=== PATIENT | male | born 1965 | race African-American/Black ===

== ENCOUNTER 2018-06-21 04:16 | Inpatient (IN) | payer MEDICAID ==
[~2018-06-21] VITALS: Ht 182.9 cm; Wt 93.5 kg
[2018-06-21] MEDS ORDERED: IBUPROFEN 600MG TABLET PO ONE (06:00)
[2018-06-21 06:24] LABS: BASOPHILS % 1.3 % (0.0-2.0); EOSINOPHILS % 2.4 % (0.0-5.0); HEMATOCRIT. 40.6 % (42.0-52.0); HEMOGLOBIN. 13.3 g/dL (14.0-18.0); LYMPHOCYTES % 12.1 % (20.0-50.0); MEAN CORPUSCULAR HEMOGLOBIN 30.6 pg (28.0-32.0); MEAN CORPUSCULAR VOLUME 93.4 fL (80.0-94.0); MEAN PLATELET VOLUME 7.8 fl (7.4-10.4); MONOCYTES % 6.3 % (2.0-8.0); NEUTROPHILS % 77.9 % (40.0-76.0); PLATELET 339 x1000/uL (130-400); RED BLOOD CELL COUNT 4.34 mill/uL (4.7-6.1); RED CELL DISTRIBUTION WIDTH 16.1 % (11.6-14.6)
[2018-06-21] MEDS ORDERED: SODIUM CHLORIDE 0.9% 1,000 ML IV ONE (06:24)
[2018-06-21 06:28] LABS: PROTHROMBIN TIME 10.2 sec (9.1-11.1)
[2018-06-21] MEDS ORDERED: PIPERACILLIN/TAZ 3.375G PREMIX 50 ML IV ONE (06:30)
[2018-06-21] MEDS ORDERED: VANCOMYCIN 1 G PREMIX 200 ML IV ONE (06:30)
[2018-06-21 06:41] LABS: CHLORIDE 109 mEq/L (98-107)
[2018-06-21 07:16] LABS: CLARITY URINE CLEAR (CLEAR); COLOR URINE YELLOW (YELLOW); KETONES URINE NEGATIVE (NEGATIVE); LEUKOCYTE ESTERASE URINE NEGATIVE (NEGATIVE); NITRITE URINE NEGATIVE (NEGATIVE); OCCULT BLOOD URINE NEGATIVE (NEGATIVE); PROTEIN URINE TRACE (NEGATIVE); UROBILINOGEN URINE 0.2 E.U./dL (0.2-1.0)
[2018-06-21 08:02] LABS: *COCAINE SCREEN URINE PRESUMTIVE POSITIVE (NEGATIVE)
[2018-06-21 08:03] LABS: *AMPHETAMINES SCREEN URINE NEGATIVE (NEGATIVE); *BARBITURATES SCREEN URINE NEGATIVE (NEGATIVE); *BENZODIAZEPINES SCREEN URINE NEGATIVE (NEGATIVE); OPIATES URINE SCREEN NEGATIVE (NEGATIVE); PHENCYCLIDINE URINE SCREEN NEGATIVE (NEGATIVE)
[2018-06-21 08:04] LABS: CANNABINOID URINE SCREEN NEGATIVE (NEGATIVE); METHADONE URINE SCREEN NEGATIVE (NEGATIVE)
[2018-06-21] MEDS ORDERED: SODIUM CHLORIDE 0.9% 1000ML BAG (SEPSIS BOLUS) IV ONE (09:00)
[2018-06-21] MEDS ORDERED: ACETAMINOPHEN 325MG TABLET PO PRN (09:15)
[2018-06-21] MEDS ORDERED: CLONIDINE 0.1MG TABLET PO PRN (09:15)
[2018-06-21] MEDS ORDERED: ONDANSETRON HCL 4MG/2ML INJ IV PRN (09:15)
[2018-06-21] MEDS: FUROSEMIDE 40MG/4ML VIAL IVP SCH (12:54)
[2018-06-21 13:53] VITALS: BP 158/105
[2018-06-21 15:21] VITALS: BP 158/105
[2018-06-21 16:00] VITALS: BP 159/98
[2018-06-21] MEDS: ENOXAPARIN 40MG/0.4ML SYR SUBCUT SCH (16:38)
[2018-06-21 20:00] VITALS: BP 154/88
[2018-06-21] MEDS ORDERED: VANCOMYCIN 750 MG PREMIX 150 ML IV NR (20:00)
[2018-06-21] MEDS: METOPROLOL TARTRATE 50MG TABLET PO SCH (21:00)
[2018-06-21] MEDS ORDERED: VANCOMYCIN 1 G PREMIX 200 ML IV SCH (21:00)
[2018-06-21] MEDS: AMLODIPINE 5MG TABLET PO SCH (21:00)
[2018-06-21] MEDS: CARVEDILOL 6.25 MG TABLET PO SCH (21:01)
[2018-06-22 04:00] VITALS: BP 134/88
[2018-06-22 07:07] LABS: BASOPHILS % 1.2 % (0.0-2.0); EOSINOPHILS % 2.8 % (0.0-5.0); HEMATOCRIT. 33.5 % (42.0-52.0); HEMOGLOBIN. 11.3 g/dL (14.0-18.0); LYMPHOCYTES % 14.3 % (20.0-50.0); MEAN CORPUSCULAR HEMOGLOBIN 30.7 pg (28.0-32.0); MEAN CORPUSCULAR VOLUME 90.7 fL (80.0-94.0); MEAN PLATELET VOLUME 7.8 fl (7.4-10.4); MONOCYTES % 7.3 % (2.0-8.0); NEUTROPHILS % 74.4 % (40.0-76.0); PLATELET 306 x1000/uL (130-400); RED BLOOD CELL COUNT 3.69 mill/uL (4.7-6.1); RED CELL DISTRIBUTION WIDTH 15.6 % (11.6-14.6)
[2018-06-22 08:00] VITALS: BP 134/90
[2018-06-22] MEDS: FUROSEMIDE 40MG/4ML VIAL IVP SCH (09:56)
[2018-06-22] MEDS: AMLODIPINE 5MG TABLET PO SCH ×2 (09:56→21:37)
[2018-06-22] MEDS: CARVEDILOL 6.25 MG TABLET PO SCH ×2 (09:56→21:37)
[2018-06-22] MEDS: METOPROLOL TARTRATE 50MG TABLET PO SCH ×2 (09:57→21:36)
[2018-06-22 12:00] VITALS: BP 116/80
[2018-06-22 16:00] VITALS: BP 133/94
[2018-06-22] MEDS: ENOXAPARIN 40MG/0.4ML SYR SUBCUT SCH (16:00)
[2018-06-22] MEDS: SILVER SULFADIAZINE 1% CREAM 50GM TOP SCH ×2 (19:30→22:26)
[2018-06-22 20:16] VITALS: BP 113/66
[2018-06-22] MEDS: ZOLPIDEM TARTRATE 5MG TABLET PO PRN (21:36)
[2018-06-22] MEDS: DIPHENHYDRAMINE 50MG/ML VIAL IV PRN (21:38)
[2018-06-23] MEDS ORDERED: LORAZEPAM 2MG/ML CPJ IV PRN (01:30)
[2018-06-23 04:00] VITALS: BP 112/69
[2018-06-23 08:00] VITALS: BP 115/66
[2018-06-23] MEDS: METOPROLOL TARTRATE 50MG TABLET PO SCH (09:35)
[2018-06-23] MEDS: CARVEDILOL 6.25 MG TABLET PO SCH ×2 (09:35→22:43)
[2018-06-23] MEDS: AMLODIPINE 5MG TABLET PO SCH ×2 (09:36→22:43)
[2018-06-23] MEDS: SILVER SULFADIAZINE 1% CREAM 50GM TOP SCH (09:38)
[2018-06-23 12:00] VITALS: BP_SYST 102; BP_SYST 112; BP_DIAS 52; BP_DIAS 61
[2018-06-23 13:34] LABS: BASOPHILS % 1.4 % (0.0-2.0); EOSINOPHILS % 3.5 % (0.0-5.0); HEMATOCRIT. 36.4 % (42.0-52.0); LYMPHOCYTES % 17.2 % (20.0-50.0); MEAN CORPUSCULAR HEMOGLOBIN 30.1 pg (28.0-32.0); MEAN PLATELET VOLUME 7.5 fl (7.4-10.4); MONOCYTES % 11.3 % (2.0-8.0); NEUTROPHILS % 66.6 % (40.0-76.0); PLATELET 319 x1000/uL (130-400); RED CELL DISTRIBUTION WIDTH 15.6 % (11.6-14.6)
[2018-06-23 16:00] VITALS: BP 111/79
[2018-06-23] MEDS: ENOXAPARIN 40MG/0.4ML SYR SUBCUT SCH (17:18)
[2018-06-24 00:37] VITALS: BP 116/82
[2018-06-24] MEDS: DIPHENHYDRAMINE 50MG/ML VIAL IV PRN (03:33)
[2018-06-24 04:00] VITALS: BP 115/85
[2018-06-24 08:00] VITALS: BP 118/54
[2018-06-24] MEDS: SILVER SULFADIAZINE 1% CREAM 50GM TOP SCH (09:17)
[2018-06-24] MEDS: CARVEDILOL 6.25 MG TABLET PO SCH ×2 (09:18→20:55)
[2018-06-24] MEDS: AMLODIPINE 5MG TABLET PO SCH ×2 (09:18→20:56)
[2018-06-24] MEDS ORDERED: VANCOMYCIN 1500MG in DEXTROSE 5% WATER 250ML IV NR (12:00)
[2018-06-24] MEDS: ENOXAPARIN 40MG/0.4ML SYR SUBCUT SCH (16:38)
[2018-06-24 20:00] VITALS: BP 120/79
[2018-06-24] MEDS: ZOLPIDEM TARTRATE 5MG TABLET PO PRN (20:56)
[2018-06-24] MEDS: HYDROCODONE/ACETAMINOPHEN 10/325MG TABLET PO PRN (20:57)
[2018-06-25] VITALS: BP 130/89
[2018-06-25 08:00] VITALS: BP 119/87
[2018-06-25] MEDS: CARVEDILOL 6.25 MG TABLET PO SCH (08:04)
[2018-06-25] MEDS: HYDROCODONE/ACETAMINOPHEN 10/325MG TABLET PO PRN ×2 (08:05→14:11)
[2018-06-25] MEDS: AMLODIPINE 5MG TABLET PO SCH (08:05)
[2018-06-25] MEDS: SILVER SULFADIAZINE 1% CREAM 50GM TOP SCH (08:05)
[2018-06-25 12:00] VITALS: BP 119/87
[2018-06-25] MEDS ORDERED: VANCOMYCIN 1500MG in DEXTROSE 5% WATER 250ML IV SCH (12:00)
[2018-06-25] MEDS: ENOXAPARIN 40MG/0.4ML SYR SUBCUT SCH (15:50)
[2018-06-25 16:21] VITALS: BP 119/78
== END 2018-06-25 16:45 | disposition home or self-care (01) | DRG 194 ==
LOC: ER 04:16 → 7WST 07:08 → EDBEDREQ 07:09 → ENRESERV 11:24
PROVIDERS: ADMIT Internal Medicine; ATTEND Internal Medicine
DX: I13.0 Hypertensive heart and chronic kidney disease with heart failure and stage 1 through stage 4 chronic kidney disease, or unspecified chronic kidney disease (principal); E87.8 Other disorders of electrolyte and fluid balance, not elsewhere classified; E44.0 Moderate protein-calorie malnutrition; I42.9 Cardiomyopathy, unspecified; L97.919 Non-pressure chronic ulcer of unspecified part of right lower leg with unspecified severity; L03.115 Cellulitis of right lower limb; N18.4 Chronic kidney disease, stage 4 (severe); F14.10 Cocaine abuse, uncomplicated; J45.909 Unspecified asthma, uncomplicated; D64.9 Anemia, unspecified; L97.929 Non-pressure chronic ulcer of unspecified part of left lower leg with unspecified severity; I50.43 Acute on chronic combined systolic (congestive) and diastolic (congestive) heart failure; I87.2 Venous insufficiency (chronic) (peripheral); Z59.0 Homelessness; Z82.49 Family history of ischemic heart disease and other diseases of the circulatory system; Z88.0 Allergy status to penicillin; Z68.27 Body mass index [BMI] 27.0-27.9, adult
CPT/HCPCS: 36415; 71045; 73610; 80048; 80202; 80305; 83605; 83880; 84145; 87070; 87077; 93005; 93306; 93970; 96365; 99291; J1200; J1650; J1940; J2060; J2543; J3370; J7030; J7050; J7060

== ENCOUNTER 2018-08-24 05:09 | Emergency (ER) | payer MEDICAID ==
[~2018-08-24] VITALS: Ht 182.9 cm; Wt 90.0 kg
[2018-08-24] MEDS ORDERED: ASPIRIN 81MG TABLET PO ONE (07:45)
[2018-08-24] MEDS ORDERED: SODIUM CHLORIDE 0.9% 1,000 ML IV ONE ×2 (07:45→09:33)
[2018-08-24 08:19] LABS: BASOPHILS % 1.2 % (0.0-2.0); EOSINOPHILS % 1.2 % (0.0-5.0); HEMATOCRIT. 33.4 % (42.0-52.0); HEMOGLOBIN. 10.8 g/dL (14.0-18.0); LYMPHOCYTES % 9.9 % (20.0-50.0); MEAN CORPUSCULAR HEMOGLOBIN 29.2 pg (28.0-32.0); MEAN CORPUSCULAR VOLUME 90.2 fL (80.0-94.0); MONOCYTES % 5.5 % (2.0-8.0); NEUTROPHILS % 82.2 % (40.0-76.0); PLATELET 311 x1000/uL (130-400); RED CELL DISTRIBUTION WIDTH 14.4 % (11.6-14.6)
[2018-08-24 08:25] LABS: CHLORIDE 110 mEq/L (98-107)
[2018-08-24 08:29] LABS: ETHANOL BLOOD < 10 mg/dL
[2018-08-24 08:32] LABS: D-DIMER 0.63 mg/L FEU (<0.50); PARTIAL THROMBOPLASTIN TIME 27.3 sec (23.4-31.0); PROTHROMBIN TIME 10.5 sec (9.1-11.1)
[2018-08-24 09:13] LABS: *AMPHETAMINES SCREEN URINE NEGATIVE (NEGATIVE)
[2018-08-24 09:14] LABS: *BENZODIAZEPINES SCREEN URINE NEGATIVE (NEGATIVE); *COCAINE SCREEN URINE PRESUMTIVE POSITIVE (NEGATIVE); CANNABINOID URINE SCREEN PRESUMTIVE POSITIVE (NEGATIVE); METHADONE URINE SCREEN NEGATIVE (NEGATIVE); OPIATES URINE SCREEN NEGATIVE (NEGATIVE); PHENCYCLIDINE URINE SCREEN NEGATIVE (NEGATIVE)
[2018-08-24 09:23] LABS: *BARBITURATES SCREEN URINE NEGATIVE (NEGATIVE)
[2018-08-24] MEDS ORDERED: LORAZEPAM 1MG TABLET PO ONE (09:45)
[2018-08-24] MEDS ORDERED: IOHEXOL-350 100 ML BOTTLE ONE (11:46)
[2018-08-24 14:20] VITALS: BP 125/72
== END 2018-08-24 14:37 | disposition home or self-care (01) ==
LOC: ER 05:09
DX: M79.18 Myalgia, other site (principal); R07.89 Other chest pain; F12.10 Cannabis abuse, uncomplicated; F14.10 Cocaine abuse, uncomplicated; R00.2 Palpitations; G82.22 Paraplegia, incomplete; Z87.828 Personal history of other (healed) physical injury and trauma
CPT/HCPCS: 36415; 71045; 71275; 80053; 80305; 83880; 84484; 85025; 85379; 85610; 85730; 93005; 93970; 99284; J7030; Q9967

== ENCOUNTER 2018-10-05 06:53 | Inpatient (IN) | payer MEDICAID ==
[~2018-10-05] VITALS: Ht 172.7 cm; Wt 96.6 kg
[2018-10-05] MEDS ORDERED: SODIUM CHLORIDE 0.9% 1,000 ML IV ONE ×2 (07:09→07:15)
[2018-10-05 07:36] LABS: CHLORIDE 112 mEq/L (98-107)
[2018-10-05 07:37] LABS: PROTHROMBIN TIME 10.8 sec (9.6-11.0)
[2018-10-05 07:40] LABS: ETHANOL BLOOD < 10 mg/dL
[2018-10-05 07:46] LABS: BASOPHILS % 1.2 % (0.0-2.0); EOSINOPHILS % 5.8 % (0.0-5.0); HEMATOCRIT. 36.8 % (42.0-52.0); HEMOGLOBIN. 11.9 g/dL (14.0-18.0); MEAN CORPUSCULAR HEMOGLOBIN 29.1 pg (28.0-32.0); MEAN CORPUSCULAR VOLUME 89.8 fL (80.0-94.0); MONOCYTES % 7.2 % (2.0-8.0); NEUTROPHILS % 74.8 % (40.0-76.0); PLATELET 257 x1000/uL (130-400); RED BLOOD CELL COUNT 4.09 mill/uL (4.7-6.1); RED CELL DISTRIBUTION WIDTH 17.1 % (11.6-14.6)
[2018-10-05] MEDS ORDERED: CLINDAMYCIN 600 MG in DEXTROSE 5% WATER 50 ML IV ONE (08:00)
[2018-10-05] MEDS: VANCOMYCIN 1 G PREMIX 200 ML IV SCH ×3 (08:00→13:24)
[2018-10-05 08:49] LABS: CLARITY URINE CLEAR (CLEAR); COLOR URINE YELLOW (YELLOW); KETONES URINE NEGATIVE (NEGATIVE); LEUKOCYTE ESTERASE URINE NEGATIVE (NEGATIVE); NITRITE URINE NEGATIVE (NEGATIVE); OCCULT BLOOD URINE NEGATIVE (NEGATIVE); PH URINE 5.5 (4.5-8.0); PROTEIN URINE 1+ (NEGATIVE); SPECIFIC GRAVITY URINE 1.012 (1.005-1.030); UROBILINOGEN URINE 0.2 E.U./dL (0.2-1.0)
[2018-10-05 09:19] LABS: *BARBITURATES SCREEN URINE NEGATIVE (NEGATIVE); *BENZODIAZEPINES SCREEN URINE NEGATIVE (NEGATIVE); *COCAINE SCREEN URINE PRESUMTIVE POSITIVE (NEGATIVE); METHADONE URINE SCREEN NEGATIVE (NEGATIVE)
[2018-10-05 09:20] LABS: CANNABINOID URINE SCREEN PRESUMTIVE POSITIVE (NEGATIVE); OPIATES URINE SCREEN NEGATIVE (NEGATIVE); PHENCYCLIDINE URINE SCREEN NEGATIVE (NEGATIVE)
[2018-10-05 09:23] LABS: *AMPHETAMINES SCREEN URINE NEGATIVE (NEGATIVE)
[2018-10-05] MEDS ORDERED: ASPIRIN 81MG TABLET PO ONE (09:45)
[2018-10-05] MEDS ORDERED: ACETAMINOPHEN 325MG TABLET PO PRN (10:15)
[2018-10-05] MEDS ORDERED: DIPHENHYDRAMINE 50MG/ML VIAL IV PRN (10:15)
[2018-10-05] MEDS ORDERED: MAGNESIUM/ALUMINUM HYDROXIDE/SIMETHICONE 30ML UDC PO PRN (10:15)
[2018-10-05] MEDS ORDERED: GUAIFENESIN 200MG/10ML SUGAR FREE UDC PO PRN (10:15)
[2018-10-05] MEDS ORDERED: IPRATROPIUM/ALBUTEROL 0.5-3(2.5)MG/3ML NEB INH PRN (10:15)
[2018-10-05] MEDS ORDERED: ONDANSETRON HCL 4MG/2ML INJ IV PRN (10:15)
[2018-10-05] MEDS ORDERED: CLONIDINE 0.1MG TABLET PO PRN (10:15)
[2018-10-05] MEDS ORDERED: ASPIRIN 81MG TABLET PO SCH (11:00)
[2018-10-05 11:22] LABS: PHOSPHORUS 3.1 mg/dL (2.5-4.9)
[2018-10-05 11:48] LABS: HEPATITIS B SURFACE ANTIGEN NEGATIVE
[2018-10-05 12:17] LABS: HEPATITIS A AB IGM NEGATIVE (NEGATIVE)
[2018-10-05 16:06] LABS: BG BASE EXCESS -0.9 mmol/L (-2.0-2.0); BG CARBOXYHEMOGLOBIN 1.2 % (0.5-1.5); BG DEOXYHEMOGLOBIN 5.4 % (0.0-5.0); BG HCO3 ACT 23.7 mmol/L (22.0-26.0); BG METHEMOGLOBIN 0.2 % (0.0-1.5); BG OXYGEN SATURATION 94.5 % (92.0-98.5); BG OXYHEMOGLOBIN 93.2 % (94.0-97.0); BG PCO2 38.8 mmHg (35.0-45.0); BG PH 7.403 (7.350-7.450); BG PO2 74.8 mmHg (75.0-100.0); BG SAMPLE SITE RIGHT RADIAL; BG TOTAL HEMOGLOBIN 12.2 g/dL (12.0-18.0); BG VENT MODE ROOM AIR
[2018-10-05 16:26] LABS: CREATINE KINASE MB FRACTION 3.5 ng/mL (0.5-3.6)
[2018-10-05 16:52] LABS: FOLIC ACID (FOLATE) SERUM 19.8 ng/mL (>5.38)
[2018-10-05] MEDS: CLONIDINE 0.1MG TABLET PO SCH ×2 (18:00→18:14)
[2018-10-05 18:12] VITALS: BP 140/93
[2018-10-05 18:20] VITALS: BP 159/116
[2018-10-05 20:00] VITALS: BP 158/110
[2018-10-05] MEDS: AMLODIPINE 5MG TABLET PO SCH (20:14)
[2018-10-05 22:00] VITALS: BP 128/86
[2018-10-05 23:56] LABS: CREATINE KINASE MB FRACTION 2.1 ng/mL (0.5-3.6)
[2018-10-06] VITALS (12 sets, daily range): BP systolic 107–160; BP diastolic 68–111
[2018-10-06] MEDS: CLONIDINE 0.1MG TABLET PO SCH ×4 (01:22→17:15)
[2018-10-06 06:51] LABS: BASOPHILS % 1.3 % (0.0-2.0); EOSINOPHILS % 9.1 % (0.0-5.0); HEMATOCRIT. 33.5 % (42.0-52.0); HEMOGLOBIN. 11.1 g/dL (14.0-18.0); LYMPHOCYTES % 10.9 % (20.0-50.0); MEAN CORPUSCULAR HEMOGLOBIN 29.3 pg (28.0-32.0); MEAN CORPUSCULAR VOLUME 88.1 fL (80.0-94.0); MEAN PLATELET VOLUME 7.9 fl (7.4-10.4); MONOCYTES % 7.6 % (2.0-8.0); NEUTROPHILS % 71.1 % (40.0-76.0); PLATELET 240 x1000/uL (130-400); RED CELL DISTRIBUTION WIDTH 16.3 % (11.6-14.6)
[2018-10-06 07:12] LABS: CHLORIDE 110 mEq/L (98-107)
[2018-10-06 07:20] LABS: HDL CHOLESTEROL 45 mg/dL (40-59)
[2018-10-06 07:22] LABS: LDL CHOLESTEROL 78 mg/dL (5-100)
[2018-10-06] MEDS: AMLODIPINE 5MG TABLET PO SCH ×2 (09:30→21:36)
[2018-10-06] MEDS: DOCUSATE SODIUM 100MG CAPSULE PO PRN (09:30)
[2018-10-06] MEDS: ASPIRIN 81MG EC TABLET PO SCH (09:31)
[2018-10-06 12:10] LABS: PHOSPHORUS 2.5 mg/dL (2.5-4.9)
[2018-10-06 12:13] LABS: T4 FREE 0.99 ng/dL (0.76-1.46)
[2018-10-06] MEDS: THIAMINE HCL 100MG TABLET PO SCH (12:23)
[2018-10-06] MEDS: FOLIC ACID 1MG TABLET PO SCH (12:23)
[2018-10-06] MEDS: MULTIVITAMINS,THER W-MINERALS TABLET PO SCH (12:23)
[2018-10-06] MEDS: HYDROCODONE/ACETAMINOPHEN 5/325MG TABLET PO PRN ×2 (17:15→21:46)
[2018-10-07] VITALS (10 sets, daily range): BP systolic 104–140; BP diastolic 67–94
[2018-10-07] MEDS: CLONIDINE 0.1MG TABLET PO SCH ×3 (01:07→18:06)
[2018-10-07] MEDS: HYDROCODONE/ACETAMINOPHEN 5/325MG TABLET PO PRN ×3 (01:08→22:15)
[2018-10-07 07:06] LABS: BASOPHILS % 1.3 % (0.0-2.0); EOSINOPHILS % 11.5 % (0.0-5.0); HEMATOCRIT. 35.2 % (42.0-52.0); HEMOGLOBIN. 11.5 g/dL (14.0-18.0); LYMPHOCYTES % 19.5 % (20.0-50.0); MEAN CORPUSCULAR HEMOGLOBIN 28.9 pg (28.0-32.0); MEAN CORPUSCULAR VOLUME 88.1 fL (80.0-94.0); MEAN PLATELET VOLUME 7.9 fl (7.4-10.4); MONOCYTES % 9.2 % (2.0-8.0); NEUTROPHILS % 58.5 % (40.0-76.0); PLATELET 229 x1000/uL (130-400); RED CELL DISTRIBUTION WIDTH 16.4 % (11.6-14.6)
[2018-10-07 07:12] LABS: PHOSPHORUS 3.6 mg/dL (2.5-4.9)
[2018-10-07] MEDS: MULTIVITAMINS,THER W-MINERALS TABLET PO SCH (08:07)
[2018-10-07] MEDS: FOLIC ACID 1MG TABLET PO SCH (08:07)
[2018-10-07] MEDS: AMLODIPINE 5MG TABLET PO SCH ×2 (08:07→21:24)
[2018-10-07] MEDS: DOCUSATE SODIUM 100MG CAPSULE PO PRN (08:08)
[2018-10-07] MEDS: FERROUS SULFATE 325MG TABLET PO SCH ×4 (08:08→18:06)
[2018-10-07] MEDS: THIAMINE HCL 100MG TABLET PO SCH (08:08)
[2018-10-07] MEDS: ASPIRIN 81MG EC TABLET PO SCH (08:08)
[2018-10-07] MEDS ORDERED: PERMETHRIN 5% CREAM 60GM TOP SCH (13:30)
[2018-10-07] MEDS ORDERED: LACTULOSE 20G/30ML UDC PO PRN (21:00)
[2018-10-08] VITALS: BP 117/79
[2018-10-08] MEDS: CLONIDINE 0.1MG TABLET PO SCH ×3 (01:29→18:12)
[2018-10-08 04:00] VITALS: BP 118/82
[2018-10-08 06:17] LABS: BASOPHILS % 1.3 % (0.0-2.0); EOSINOPHILS % 10.2 % (0.0-5.0); HEMATOCRIT. 33.8 % (42.0-52.0); HEMOGLOBIN. 11.2 g/dL (14.0-18.0); LYMPHOCYTES % 21.1 % (20.0-50.0); MEAN CORPUSCULAR HEMOGLOBIN 29.4 pg (28.0-32.0); MEAN CORPUSCULAR VOLUME 88.7 fL (80.0-94.0); MEAN PLATELET VOLUME 7.6 fl (7.4-10.4); MONOCYTES % 8.9 % (2.0-8.0); NEUTROPHILS % 58.5 % (40.0-76.0); PLATELET 217 x1000/uL (130-400); RED CELL DISTRIBUTION WIDTH 16.6 % (11.6-14.6)
[2018-10-08 08:00] VITALS: BP 122/93
[2018-10-08] MEDS: MULTIVITAMINS,THER W-MINERALS TABLET PO SCH (09:40)
[2018-10-08] MEDS: ASPIRIN 81MG EC TABLET PO SCH (09:40)
[2018-10-08] MEDS: FERROUS SULFATE 325MG TABLET PO SCH ×3 (09:40→18:12)
[2018-10-08] MEDS: FOLIC ACID 1MG TABLET PO SCH (09:41)
[2018-10-08] MEDS: THIAMINE HCL 100MG TABLET PO SCH (09:41)
[2018-10-08] MEDS: AMLODIPINE 5MG TABLET PO SCH ×2 (09:48→20:31)
[2018-10-08] MEDS: HYDROCODONE/ACETAMINOPHEN 5/325MG TABLET PO PRN ×2 (09:54→18:18)
[2018-10-08 12:00] VITALS: BP 102/56
[2018-10-08 13:06] LABS: HIV SCREEN 4G Non Reactive (Non Reactive)
[2018-10-08 16:00] VITALS: BP 126/93
[2018-10-08 20:00] VITALS: BP 119/85
[2018-10-09] VITALS: BP 130/80
[2018-10-09] MEDS: CLONIDINE 0.1MG TABLET PO SCH ×3 (01:01→19:45)
[2018-10-09] MEDS: HYDROCODONE/ACETAMINOPHEN 5/325MG TABLET PO PRN ×2 (01:07→04:58)
[2018-10-09 04:00] VITALS: BP 119/83
[2018-10-09 06:56] LABS: BASOPHILS % 1.7 % (0.0-2.0); HEMATOCRIT. 33.4 % (42.0-52.0); HEMOGLOBIN. 11.1 g/dL (14.0-18.0); MEAN CORPUSCULAR HEMOGLOBIN 29.2 pg (28.0-32.0); MEAN CORPUSCULAR VOLUME 87.9 fL (80.0-94.0); MEAN PLATELET VOLUME 7.8 fl (7.4-10.4); MONOCYTES % 8.6 % (2.0-8.0); NEUTROPHILS % 54.7 % (40.0-76.0); PLATELET 219 x1000/uL (130-400); RED BLOOD CELL COUNT 3.81 mill/uL (4.7-6.1); RED CELL DISTRIBUTION WIDTH 16.4 % (11.6-14.6)
[2018-10-09 07:32] LABS: PHOSPHORUS 3.6 mg/dL (2.5-4.9)
[2018-10-09 08:00] VITALS: BP 124/90
[2018-10-09] MEDS: ASPIRIN 81MG EC TABLET PO SCH (08:00)
[2018-10-09] MEDS: AMLODIPINE 5MG TABLET PO SCH ×3 (09:41→21:46)
[2018-10-09] MEDS: FOLIC ACID 1MG TABLET PO SCH (09:42)
[2018-10-09] MEDS: FERROUS SULFATE 325MG TABLET PO SCH ×3 (09:42→17:58)
[2018-10-09] MEDS: MULTIVITAMINS,THER W-MINERALS TABLET PO SCH (09:42)
[2018-10-09] MEDS: LACTULOSE 20G/30ML UDC PO SCH ×2 (09:43→17:58)
[2018-10-09] MEDS: THIAMINE HCL 100MG TABLET PO SCH (09:46)
[2018-10-09 12:15] VITALS: BP 120/78
[2018-10-09 15:55] VITALS: BP 116/77
[2018-10-09 20:00] VITALS: BP 134/83
[2018-10-10 00:09] VITALS: BP 134/93
[2018-10-10] MEDS: CLONIDINE 0.1MG TABLET PO SCH ×3 (01:38→18:06)
[2018-10-10] MEDS: HYDROCODONE/ACETAMINOPHEN 5/325MG TABLET PO PRN (02:16)
[2018-10-10 04:04] VITALS: BP 117/85
[2018-10-10 06:28] LABS: BASOPHILS % 1.2 % (0.0-2.0); EOSINOPHILS % 7.7 % (0.0-5.0); HEMATOCRIT. 32.7 % (42.0-52.0); HEMOGLOBIN. 10.8 g/dL (14.0-18.0); LYMPHOCYTES % 22.5 % (20.0-50.0); MEAN CORPUSCULAR VOLUME 87.9 fL (80.0-94.0); MONOCYTES % 9.3 % (2.0-8.0); NEUTROPHILS % 59.3 % (40.0-76.0); PLATELET 217 x1000/uL (130-400); RED BLOOD CELL COUNT 3.73 mill/uL (4.7-6.1); RED CELL DISTRIBUTION WIDTH 16.5 % (11.6-14.6)
[2018-10-10 06:47] LABS: PHOSPHORUS 3.3 mg/dL (2.5-4.9)
[2018-10-10] MEDS: FOLIC ACID 1MG TABLET PO SCH (08:44)
[2018-10-10] MEDS: MULTIVITAMINS,THER W-MINERALS TABLET PO SCH (08:44)
[2018-10-10] MEDS: ASPIRIN 81MG EC TABLET PO SCH (08:44)
[2018-10-10] MEDS: AMLODIPINE 5MG TABLET PO SCH ×2 (08:46→20:38)
[2018-10-10] MEDS: FERROUS SULFATE 325MG TABLET PO SCH ×3 (08:46→18:06)
[2018-10-10] MEDS: THIAMINE HCL 100MG TABLET PO SCH (08:46)
[2018-10-10] MEDS: LACTULOSE 20G/30ML UDC PO SCH ×2 (08:46→18:06)
[2018-10-10 09:10] VITALS: BP 134/97
[2018-10-10 12:00] VITALS: BP 113/67
[2018-10-10 16:00] VITALS: BP 136/90
[2018-10-10 20:13] VITALS: BP 113/77
[2018-10-11 00:06] VITALS: BP 131/92
[2018-10-11] MEDS: CLONIDINE 0.1MG TABLET PO SCH ×2 (02:00→09:39)
[2018-10-11 03:59] VITALS: BP 132/92
[2018-10-11 07:09] LABS: BASOPHILS % 1.8 % (0.0-2.0); EOSINOPHILS % 7.6 % (0.0-5.0); HEMATOCRIT. 32.8 % (42.0-52.0); HEMOGLOBIN. 10.8 g/dL (14.0-18.0); LYMPHOCYTES % 22.7 % (20.0-50.0); MEAN CORPUSCULAR HEMOGLOBIN 28.9 pg (28.0-32.0); MEAN CORPUSCULAR VOLUME 87.9 fL (80.0-94.0); MEAN PLATELET VOLUME 7.8 fl (7.4-10.4); MONOCYTES % 8.7 % (2.0-8.0); NEUTROPHILS % 59.2 % (40.0-76.0); PLATELET 211 x1000/uL (130-400); RED BLOOD CELL COUNT 3.74 mill/uL (4.7-6.1); RED CELL DISTRIBUTION WIDTH 16.3 % (11.6-14.6)
[2018-10-11] MEDS: MULTIVITAMINS,THER W-MINERALS TABLET PO SCH (08:52)
[2018-10-11] MEDS: FOLIC ACID 1MG TABLET PO SCH (08:52)
[2018-10-11] MEDS: THIAMINE HCL 100MG TABLET PO SCH (08:52)
[2018-10-11] MEDS: ASPIRIN 81MG EC TABLET PO SCH (08:52)
[2018-10-11] MEDS: FERROUS SULFATE 325MG TABLET PO SCH (08:52)
[2018-10-11] MEDS: AMLODIPINE 5MG TABLET PO SCH (08:52)
[2018-10-11] MEDS: LACTULOSE 20G/30ML UDC PO SCH (08:53)
[2018-10-11 10:21] VITALS: BP 128/94
== END 2018-10-11 13:00 | disposition home or self-care (01) | DRG 194 ==
LOC: ER 07:07 → 3WST 09:49 → EDBEDREQ 09:54 → ENRESERV 14:27 → 6WST 10-07 15:55
PROVIDERS: ADMIT Internal Medicine; ATTEND Internal Medicine
PROC: 4A00X4Z Measurement of Central Nervous Electrical Activity, External Approach (ICD-10-PCS; principal; 2018-10-10)
DX: I13.0 Hypertensive heart and chronic kidney disease with heart failure and stage 1 through stage 4 chronic kidney disease, or unspecified chronic kidney disease (principal); G92 Toxic encephalopathy; E44.0 Moderate protein-calorie malnutrition; E72.20 Disorder of urea cycle metabolism, unspecified; N17.9 Acute kidney failure, unspecified; E87.2 Acidosis; N18.3 Chronic kidney disease, stage 3 (moderate); I50.43 Acute on chronic combined systolic (congestive) and diastolic (congestive) heart failure; D50.9 Iron deficiency anemia, unspecified; L03.115 Cellulitis of right lower limb; G82.20 Paraplegia, unspecified; I42.0 Dilated cardiomyopathy; I31.3 Pericardial effusion (noninflammatory); F10.239 Alcohol dependence with withdrawal, unspecified; L97.819 Non-pressure chronic ulcer of other part of right lower leg with unspecified severity; E87.5 Hyperkalemia; F14.129 Cocaine abuse with intoxication, unspecified; I08.1 Rheumatic disorders of both mitral and tricuspid valves; I87.2 Venous insufficiency (chronic) (peripheral); K40.90 Unilateral inguinal hernia, without obstruction or gangrene, not specified as recurrent; L97.919 Non-pressure chronic ulcer of unspecified part of right lower leg with unspecified severity; I45.81 Long QT syndrome; J45.909 Unspecified asthma, uncomplicated; I27.20 Pulmonary hypertension, unspecified; Y90.9 Presence of alcohol in blood, level not specified; Z53.20 Procedure and treatment not carried out because of patient's decision for unspecified reasons; Z88.0 Allergy status to penicillin; Z59.0 Homelessness; Z82.49 Family history of ischemic heart disease and other diseases of the circulatory system; Z87.891 Personal history of nicotine dependence; Z68.32 Body mass index [BMI] 32.0-32.9, adult
CPT/HCPCS: 36415; 36600; 71045; 76770; 80048; 80061; 80305; 80320; 82140; 82375; 82550; 82553; 82607; 82728; 82746; 82805; 83036; 83540; 83550; 83605; 83735; 83880; 84100; 84132; 84145; 84439; 84443; 84481; 84484; 86705; 86709; 86803; 87340; 87389; 93005; 93306; 93970; 94640; 97162; 97166; 99291; J3370; J3490; J7030; J7060; J7620; G0480

== ENCOUNTER 2018-10-27 19:19 | Inpatient (IN) | payer MEDICAID ==
[~2018-10-27] VITALS: Ht 152.4 cm; Wt 95.3 kg
[2018-10-27] MEDS ORDERED: CEFTRIAXONE 1 G PREMIX 50 ML IV ONE (20:15)
[2018-10-27] MEDS ORDERED: SODIUM CHLORIDE 0.9% 1000ML BAG (SEPSIS BOLUS) IV ONE (20:15)
[2018-10-27 20:36] LABS: BASOPHILS % 0.7 % (0.0-2.0); EOSINOPHILS % 1.1 % (0.0-5.0); HEMATOCRIT. 41.2 % (42.0-52.0); HEMOGLOBIN. 13.5 g/dL (14.0-18.0); LYMPHOCYTES % 10.1 % (20.0-50.0); MEAN CORPUSCULAR HEMOGLOBIN 29.1 pg (28.0-32.0); MEAN PLATELET VOLUME 8.1 fl (7.4-10.4); MONOCYTES % 5.7 % (2.0-8.0); NEUTROPHILS % 82.4 % (40.0-76.0); PLATELET 335 x1000/uL (130-400); RED BLOOD CELL COUNT 4.62 mill/uL (4.7-6.1); RED CELL DISTRIBUTION WIDTH 17.1 % (11.6-14.6)
[2018-10-27 20:43] LABS: CHLORIDE 105 mEq/L (98-107)
[2018-10-27 20:44] LABS: INR 1.1
[2018-10-27] MEDS ORDERED: HYDRALAZINE 20MG/ML VIAL IV ONE (20:45)
[2018-10-27] MEDS ORDERED: METRONIDAZOLE 500 MG PREMIX 100 ML IV ONE (20:45)
[2018-10-27] MEDS ORDERED: VANCOMYCIN 1 G PREMIX 200 ML IV SCH (20:45)
[2018-10-27 21:15] LABS: CLARITY URINE CLEAR (CLEAR); COLOR URINE YELLOW (YELLOW); KETONES URINE NEGATIVE (NEGATIVE); LEUKOCYTE ESTERASE URINE 2+ (NEGATIVE); NITRITE URINE POSITIVE (NEGATIVE); OCCULT BLOOD URINE TRACE (NEGATIVE); PH URINE 7.5 (4.5-8.0); PROTEIN URINE 3+ (NEGATIVE); SPECIFIC GRAVITY URINE 1.016 (1.005-1.030); UROBILINOGEN URINE 0.2 E.U./dL (0.2-1.0)
[2018-10-27] MEDS ORDERED: DOCUSATE SODIUM 100MG CAPSULE PO PRN (22:30)
[2018-10-27] MEDS ORDERED: ONDANSETRON HCL 4MG/2ML INJ IV PRN (22:30)
[2018-10-27] MEDS ORDERED: ACETAMINOPHEN 325MG TABLET PO PRN (22:30)
[2018-10-27] MEDS ORDERED: LORAZEPAM 2MG/ML CPJ IV PRN (22:30)
[2018-10-27] MEDS ORDERED: MAGNESIUM/ALUMINUM HYDROXIDE/SIMETHICONE 30ML UDC PO PRN (22:30)
[2018-10-27] MEDS ORDERED: IPRATROPIUM/ALBUTEROL 0.5-3(2.5)MG/3ML NEB INH PRN (22:30)
[2018-10-27] MEDS ORDERED: CLONIDINE 0.1MG TABLET PO PRN (22:30)
[2018-10-27] MEDS ORDERED: LIDOCAINE HCL 2% JELLY 5ML ONE (23:01)
[2018-10-28] VITALS (8 sets, daily range): BP systolic 126–161; BP diastolic 76–112
[2018-10-28] MEDS: CLINDAMYCIN 600MG PREMIX 50 ML IV SCH ×3 (03:54→21:12)
[2018-10-28] MEDS: HYDROCODONE/ACETAMINOPHEN 5/325MG TABLET PO PRN ×3 (07:48→22:36)
[2018-10-28] MEDS: FUROSEMIDE 40MG/4ML VIAL IV SCH ×2 (07:49→22:37)
[2018-10-28] MEDS: ENOXAPARIN 40MG/0.4ML SYR SUBCUT SCH (07:53)
[2018-10-28] MEDS ORDERED: LEVOFLOXACIN 500MG PREMIX 100 ML IV NR (09:00)
[2018-10-28 09:51] LABS: BASOPHILS % 1.3 % (0.0-2.0); EOSINOPHILS % 2.7 % (0.0-5.0); HEMATOCRIT. 36.9 % (42.0-52.0); HEMOGLOBIN. 12.1 g/dL (14.0-18.0); LYMPHOCYTES % 8.9 % (20.0-50.0); MEAN CORPUSCULAR HEMOGLOBIN 28.8 pg (28.0-32.0); MEAN CORPUSCULAR VOLUME 88.1 fL (80.0-94.0); MEAN PLATELET VOLUME 7.7 fl (7.4-10.4); MONOCYTES % 5.9 % (2.0-8.0); NEUTROPHILS % 81.2 % (40.0-76.0); PLATELET 309 x1000/uL (130-400); RED BLOOD CELL COUNT 4.19 mill/uL (4.7-6.1); RED CELL DISTRIBUTION WIDTH 16.8 % (11.6-14.6)
[2018-10-28 10:33] LABS: CREATINE KINASE MB FRACTION 2.1 ng/mL (0.5-3.6)
[2018-10-28] MEDS ORDERED: DEXTROSE 50% WATER 50ML SYRINGE IV PRN (13:30)
[2018-10-28] MEDS: ASPIRIN 81MG EC TABLET PO SCH (13:39)
[2018-10-28 15:27] LABS: *AMPHETAMINES SCREEN URINE NEGATIVE (NEGATIVE); *BARBITURATES SCREEN URINE NEGATIVE (NEGATIVE); *BENZODIAZEPINES SCREEN URINE NEGATIVE (NEGATIVE); *COCAINE SCREEN URINE PRESUMTIVE POSITIVE (NEGATIVE); CANNABINOID URINE SCREEN NEGATIVE (NEGATIVE); METHADONE URINE SCREEN NEGATIVE (NEGATIVE); OPIATES URINE SCREEN PRESUMTIVE POSITIVE (NEGATIVE); PHENCYCLIDINE URINE SCREEN NEGATIVE (NEGATIVE)
[2018-10-28 17:29] LABS: CREATINE KINASE MB FRACTION 1.8 ng/mL (0.5-3.6)
[2018-10-28] MEDS: BLOOD SUGAR DIAGNOSTIC STRIP TEST SCH ×2 (17:30→21:00)
[2018-10-28] MEDS: INSULIN LISPRO 100 UNITS/ML SUBCUT SCH ×2 (18:00→21:00)
[2018-10-28] MEDS ORDERED: AMLODIPINE 5MG TABLET PO SCH (21:00)
[2018-10-28] MEDS: AMLODIPINE 5MG TABLET PO SCH (22:37)
[2018-10-29] VITALS (14 sets, daily range): BP systolic 115–151; BP diastolic 65–111
[2018-10-29] MEDS: CLINDAMYCIN 600MG PREMIX 50 ML IV SCH ×3 (05:21→20:58)
[2018-10-29 05:50] LABS: BASOPHILS % 1.2 % (0.0-2.0); EOSINOPHILS % 5.1 % (0.0-5.0); HEMATOCRIT. 37.5 % (42.0-52.0); HEMOGLOBIN. 12.3 g/dL (14.0-18.0); LYMPHOCYTES % 15.7 % (20.0-50.0); MEAN CORPUSCULAR HEMOGLOBIN 28.6 pg (28.0-32.0); MEAN CORPUSCULAR VOLUME 87.2 fL (80.0-94.0); MEAN PLATELET VOLUME 7.7 fl (7.4-10.4); MONOCYTES % 9.6 % (2.0-8.0); NEUTROPHILS % 68.4 % (40.0-76.0); PLATELET 318 x1000/uL (130-400); RED CELL DISTRIBUTION WIDTH 16.9 % (11.6-14.6)
[2018-10-29] MEDS: BLOOD SUGAR DIAGNOSTIC STRIP TEST SCH ×4 (07:01→21:13)
[2018-10-29] MEDS: INSULIN LISPRO 100 UNITS/ML SUBCUT SCH ×4 (07:01→21:00)
[2018-10-29] MEDS: FUROSEMIDE 40MG/4ML VIAL IV SCH ×2 (10:03→20:58)
[2018-10-29] MEDS: ENOXAPARIN 40MG/0.4ML SYR SUBCUT SCH (10:04)
[2018-10-29] MEDS: LEVOFLOXACIN 250MG PREMIX 50 ML IV SCH (10:05)
[2018-10-29] MEDS: ASPIRIN 81MG EC TABLET PO SCH (10:05)
[2018-10-29] MEDS: AMLODIPINE 5MG TABLET PO SCH ×2 (10:05→20:58)
[2018-10-29] MEDS: HYDROCODONE/ACETAMINOPHEN 5/325MG TABLET PO PRN (21:00)
[2018-10-30] VITALS (11 sets, daily range): BP systolic 100–137; BP diastolic 58–95
[2018-10-30] MEDS: HYDROCODONE/ACETAMINOPHEN 5/325MG TABLET PO PRN (00:58)
[2018-10-30] MEDS: CLINDAMYCIN 600MG PREMIX 50 ML IV SCH ×3 (05:37→21:09)
[2018-10-30 07:18] LABS: BASOPHILS % 1.2 % (0.0-2.0); EOSINOPHILS % 5.3 % (0.0-5.0); HEMATOCRIT. 37.3 % (42.0-52.0); HEMOGLOBIN. 12.4 g/dL (14.0-18.0); LYMPHOCYTES % 18.4 % (20.0-50.0); MEAN CORPUSCULAR VOLUME 87.5 fL (80.0-94.0); MEAN PLATELET VOLUME 7.7 fl (7.4-10.4); MONOCYTES % 11.7 % (2.0-8.0); NEUTROPHILS % 63.4 % (40.0-76.0); PLATELET 311 x1000/uL (130-400); RED BLOOD CELL COUNT 4.27 mill/uL (4.7-6.1); RED CELL DISTRIBUTION WIDTH 16.8 % (11.6-14.6)
[2018-10-30] MEDS: BLOOD SUGAR DIAGNOSTIC STRIP TEST SCH ×4 (09:34→21:26)
[2018-10-30] MEDS: INSULIN LISPRO 100 UNITS/ML SUBCUT SCH ×4 (09:36→21:00)
[2018-10-30] MEDS: LEVOFLOXACIN 250MG PREMIX 50 ML IV SCH (09:37)
[2018-10-30] MEDS: FUROSEMIDE 40MG/4ML VIAL IV SCH (09:37)
[2018-10-30] MEDS: AMLODIPINE 5MG TABLET PO SCH ×2 (09:37→21:09)
[2018-10-30] MEDS: ASPIRIN 81MG EC TABLET PO SCH (09:38)
[2018-10-30] MEDS: ENOXAPARIN 40MG/0.4ML SYR SUBCUT SCH (09:39)
[2018-10-30] MEDS: SILVER SULFADIAZINE 1% CREAM 25GM TOP SCH (14:01)
[2018-10-30] MEDS: NITROGLYCERIN OINT 1GM/INCH UDPKT TD SCH ×2 (14:02→21:25)
[2018-10-31] VITALS: BP 119/77
[2018-10-31] MEDS: CLINDAMYCIN 600MG PREMIX 50 ML IV SCH ×3 (03:16→22:50)
[2018-10-31 04:00] VITALS: BP 136/86
[2018-10-31] MEDS: NITROGLYCERIN OINT 1GM/INCH UDPKT TD SCH ×3 (05:02→22:34)
[2018-10-31] MEDS: HYDROCODONE/ACETAMINOPHEN 5/325MG TABLET PO PRN ×2 (05:43→20:51)
[2018-10-31] MEDS: BLOOD SUGAR DIAGNOSTIC STRIP TEST SCH (06:40)
[2018-10-31 07:04] LABS: BASOPHILS % 1.1 % (0.0-2.0); EOSINOPHILS % 4.9 % (0.0-5.0); HEMOGLOBIN. 12.1 g/dL (14.0-18.0); LYMPHOCYTES % 18.2 % (20.0-50.0); MEAN CORPUSCULAR HEMOGLOBIN 28.5 pg (28.0-32.0); MEAN CORPUSCULAR VOLUME 87.4 fL (80.0-94.0); MEAN PLATELET VOLUME 7.9 fl (7.4-10.4); MONOCYTES % 12.1 % (2.0-8.0); NEUTROPHILS % 63.7 % (40.0-76.0); PLATELET 326 x1000/uL (130-400); RED BLOOD CELL COUNT 4.23 mill/uL (4.7-6.1); RED CELL DISTRIBUTION WIDTH 16.5 % (11.6-14.6)
[2018-10-31 08:00] VITALS: BP 133/92
[2018-10-31] MEDS: ENOXAPARIN 40MG/0.4ML SYR SUBCUT SCH (08:47)
[2018-10-31] MEDS: ASPIRIN 81MG EC TABLET PO SCH (08:47)
[2018-10-31] MEDS: AMLODIPINE 5MG TABLET PO SCH ×2 (08:47→22:34)
[2018-10-31] MEDS: SILVER SULFADIAZINE 1% CREAM 25GM TOP SCH (08:57)
[2018-10-31] MEDS ORDERED: FUROSEMIDE 40MG/4ML VIAL IV SCH (09:00)
[2018-10-31 12:00] VITALS: BP 115/70
[2018-10-31] MEDS: LEVOFLOXACIN 250MG PREMIX 50 ML IV SCH (14:00)
[2018-10-31 16:00] VITALS: BP 126/79
[2018-10-31 20:00] VITALS: BP 120/67
[2018-11-01] VITALS: BP 127/80
[2018-11-01 04:00] VITALS: BP 134/88
[2018-11-01] MEDS: CLINDAMYCIN 600MG PREMIX 50 ML IV SCH ×2 (06:46→12:00)
[2018-11-01] MEDS: NITROGLYCERIN OINT 1GM/INCH UDPKT TD SCH ×2 (06:46→14:00)
[2018-11-01] MEDS: HYDROCODONE/ACETAMINOPHEN 5/325MG TABLET PO PRN (06:48)
[2018-11-01 07:11] LABS: EOSINOPHILS % 6.9 % (0.0-5.0); HEMOGLOBIN. 12.5 g/dL (14.0-18.0); LYMPHOCYTES % 23.6 % (20.0-50.0); MEAN CORPUSCULAR HEMOGLOBIN 28.9 pg (28.0-32.0); MEAN PLATELET VOLUME 7.7 fl (7.4-10.4); MONOCYTES % 11.5 % (2.0-8.0); PLATELET 311 x1000/uL (130-400); RED BLOOD CELL COUNT 4.32 mill/uL (4.7-6.1); RED CELL DISTRIBUTION WIDTH 16.1 % (11.6-14.6)
[2018-11-01 07:47] LABS: PHOSPHORUS 3.6 mg/dL (2.5-4.9)
[2018-11-01] MEDS: ENOXAPARIN 40MG/0.4ML SYR SUBCUT SCH (08:38)
[2018-11-01] MEDS: ASPIRIN 81MG EC TABLET PO SCH (08:39)
[2018-11-01] MEDS: AMLODIPINE 5MG TABLET PO SCH (08:39)
[2018-11-01] MEDS: SILVER SULFADIAZINE 1% CREAM 25GM TOP SCH (08:40)
[2018-11-01] MEDS: LEVOFLOXACIN 250MG PREMIX 50 ML IV SCH (08:40)
[2018-11-01] MEDS ORDERED: FUROSEMIDE 40MG TABLET PO SCH (09:00)
[2018-11-01 11:56] VITALS: BP 118/69
[2018-11-01 15:26] VITALS: BP 138/82
[2018-11-01 15:46] VITALS: BP 138/82
== END 2018-11-01 17:25 | disposition home or self-care (01) | DRG 720 ==
LOC: ER 19:19 → 5EST 21:16 → EDBEDREQTM 21:21 → EDBEDREQ 21:21 → ENRESERV 22:33 → 6EST 10-30 15:54 → 8WST 10-31 09:35
PROVIDERS: ADMIT Internal Medicine; ATTEND Internal Medicine
DX: A41.9 Sepsis, unspecified organism (principal); E43 Unspecified severe protein-calorie malnutrition; I50.23 Acute on chronic systolic (congestive) heart failure; E11.22 Type 2 diabetes mellitus with diabetic chronic kidney disease; E11.649 Type 2 diabetes mellitus with hypoglycemia without coma; N17.9 Acute kidney failure, unspecified; G82.20 Paraplegia, unspecified; N18.3 Chronic kidney disease, stage 3 (moderate); I27.20 Pulmonary hypertension, unspecified; Z68.41 Body mass index [BMI] 40.0-44.9, adult; I42.9 Cardiomyopathy, unspecified; L97.919 Non-pressure chronic ulcer of unspecified part of right lower leg with unspecified severity; N39.0 Urinary tract infection, site not specified; R65.20 Severe sepsis without septic shock; I13.0 Hypertensive heart and chronic kidney disease with heart failure and stage 1 through stage 4 chronic kidney disease, or unspecified chronic kidney disease; I83.019 Varicose veins of right lower extremity with ulcer of unspecified site; L03.115 Cellulitis of right lower limb; I34.0 Nonrheumatic mitral (valve) insufficiency; X58.XXXD Exposure to other specified factors, subsequent encounter; F14.129 Cocaine abuse with intoxication, unspecified; D64.9 Anemia, unspecified; K40.90 Unilateral inguinal hernia, without obstruction or gangrene, not specified as recurrent; Z88.0 Allergy status to penicillin; Z59.0 Homelessness; Z79.899 Other long term (current) drug therapy; Z82.49 Family history of ischemic heart disease and other diseases of the circulatory system; S82.891P Other fracture of right lower leg, subsequent encounter for closed fracture with malunion; Z99.3 Dependence on wheelchair
CPT/HCPCS: 36415; 71045; 80048; 80061; 80305; 82550; 82553; 82962; 83605; 83735; 83880; 84100; 84145; 84443; 84484; 87077; 87186; 93005; 93970; 97162; 99291; J0360; J0696; J1650; J1940; J1956; J3370; J3490; J7030; J7040; J7050

== ENCOUNTER 2019-01-26 07:26 | Emergency (ER) | payer MEDICAID ==
[~2019-01-26] VITALS: Ht 188 cm; Wt 91.0 kg
[2019-01-26 09:41] LABS: CLARITY URINE CLEAR (CLEAR); COLOR URINE YELLOW (YELLOW); KETONES URINE NEGATIVE (NEGATIVE); LEUKOCYTE ESTERASE URINE TRACE (NEGATIVE); NITRITE URINE NEGATIVE (NEGATIVE); OCCULT BLOOD URINE NEGATIVE (NEGATIVE); PROTEIN URINE NEGATIVE (NEGATIVE); SPECIFIC GRAVITY URINE 1.013 (1.005-1.030)
[2019-01-26 09:57] LABS: *AMPHETAMINES SCREEN URINE NEGATIVE (NEGATIVE); CANNABINOID URINE SCREEN NEGATIVE (NEGATIVE); OPIATES URINE SCREEN NEGATIVE (NEGATIVE); PHENCYCLIDINE URINE SCREEN NEGATIVE (NEGATIVE)
[2019-01-26 09:58] LABS: *BARBITURATES SCREEN URINE NEGATIVE (NEGATIVE)
[2019-01-26 09:59] LABS: METHADONE URINE SCREEN NEGATIVE (NEGATIVE)
[2019-01-26 10:00] LABS: *COCAINE SCREEN URINE PRESUMTIVE POSITIVE (NEGATIVE)
[2019-01-26 10:01] LABS: *BENZODIAZEPINES SCREEN URINE NEGATIVE (NEGATIVE)
[2019-01-26 11:07] LABS: BASOPHILS % 0.3 % (0.0-2.0); EOSINOPHILS % 2.9 % (0.0-5.0); HEMATOCRIT. 36.5 % (42.0-52.0); HEMOGLOBIN. 11.8 g/dL (14.0-18.0); LYMPHOCYTES % 18.4 % (20.0-50.0); MONOCYTES % 8.8 % (2.0-8.0); NEUTROPHILS % 69.6 % (40.0-76.0); PLATELET 241 x1000/uL (130-400); RED BLOOD CELL COUNT 4.05 mill/uL (4.7-6.1); RED CELL DISTRIBUTION WIDTH 16.3 % (11.6-14.6)
[2019-01-26 11:11] LABS: CHLORIDE 113 mEq/L (98-107)
[2019-01-26 11:15] LABS: ETHANOL BLOOD < 10 mg/dL
[2019-01-26 12:40] VITALS: BP 140/96
== END 2019-01-26 12:41 | disposition home or self-care (01) ==
LOC: ER 07:42
DX: T40.5X1A Poisoning by cocaine, accidental (unintentional), initial encounter (principal); R41.82 Altered mental status, unspecified; N28.9 Disorder of kidney and ureter, unspecified; J45.909 Unspecified asthma, uncomplicated; I11.0 Hypertensive heart disease with heart failure; Z98.1 Arthrodesis status; Z88.0 Allergy status to penicillin; Y92.89 Other specified places as the place of occurrence of the external cause
CPT/HCPCS: 36415; 80305; 80307; 80320; 80329; 93005; 99284; G0480

== ENCOUNTER 2019-02-12 02:00 | Inpatient (IN) | payer MEDICAID ==
[~2019-02-12] VITALS: Ht 167.6 cm; Wt 90.7 kg
[2019-02-12] MEDS ORDERED: FUROSEMIDE 40MG/4ML VIAL IV ONE (03:00)
[2019-02-12] MEDS ORDERED: NITROGLYCERIN OINT 1GM/INCH UDPKT TD ONE (03:00)
[2019-02-12 03:28] LABS: BG BASE EXCESS -4.2 mmol/L (-2.0-2.0); BG CARBOXYHEMOGLOBIN 1.7 % (0.5-1.5); BG DEOXYHEMOGLOBIN 8.9 % (0.0-5.0); BG FRACTION INSPIRED OXYGEN 21; BG HCO3 ACT 20.4 mmol/L (22.0-26.0); BG METHEMOGLOBIN 0.2 % (0.0-1.5); BG OXYGEN SATURATION 90.9 % (92.0-98.5); BG OXYHEMOGLOBIN 89.2 % (94.0-97.0); BG PCO2 35.8 mmHg (35.0-45.0); BG PH 7.374 (7.350-7.450); BG PO2 63.8 mmHg (75.0-100.0); BG SAMPLE SITE RIGHT RADIAL; BG TOTAL HEMOGLOBIN 12.4 g/dL (12.0-18.0); BG VENT MODE ROOM AIR
[2019-02-12 03:30] LABS: HEMATOCRIT. 39.6 % (42.0-52.0); HEMOGLOBIN. 12.8 g/dL (14.0-18.0); MEAN CORPUSCULAR HEMOGLOBIN 28.8 pg (28.0-32.0); MEAN CORPUSCULAR VOLUME 88.9 fL (80.0-94.0); MEAN PLATELET VOLUME 7.8 fl (7.4-10.4); PLATELET 312 x1000/uL (130-400); RED BLOOD CELL COUNT 4.46 mill/uL (4.7-6.1); RED CELL DISTRIBUTION WIDTH 16.1 % (11.6-14.6)
[2019-02-12 03:31] LABS: CHLORIDE 111 mEq/L (98-107)
[2019-02-12 04:22] LABS: PLATELET ESTIMATE NORMAL
[2019-02-12 07:05] VITALS: BP 170/109
[2019-02-12 08:00] VITALS: BP 166/118
[2019-02-12] MEDS ORDERED: CLONIDINE 0.1MG TABLET PO PRN (09:30)
[2019-02-12 09:43] VITALS: BP 166/118
[2019-02-12 10:00] VITALS: BP 135/79
[2019-02-12] MEDS ORDERED: ACETAMINOPHEN 325MG TABLET PO PRN (10:30)
[2019-02-12] MEDS ORDERED: ONDANSETRON HCL 4MG/2ML INJ IV PRN (10:30)
[2019-02-12] MEDS: LOSARTAN POTASSIUM 100 MG TABLET PO SCH (10:45)
[2019-02-12] MEDS: FUROSEMIDE 40MG/4ML VIAL IVP SCH (10:45)
[2019-02-12] MEDS: ENOXAPARIN 40MG/0.4ML SYR SUBCUT SCH (10:46)
[2019-02-12 11:13] LABS: CLARITY URINE CLEAR (CLEAR); COLOR URINE YELLOW (YELLOW); KETONES URINE NEGATIVE (NEGATIVE); LEUKOCYTE ESTERASE URINE NEGATIVE (NEGATIVE); NITRITE URINE NEGATIVE (NEGATIVE); OCCULT BLOOD URINE NEGATIVE (NEGATIVE); PROTEIN URINE NEGATIVE (NEGATIVE); SPECIFIC GRAVITY URINE 1.011 (1.005-1.030); UROBILINOGEN URINE 0.2 E.U./dL (0.2-1.0)
[2019-02-12 11:43] LABS: *AMPHETAMINES SCREEN URINE NEGATIVE (NEGATIVE); CANNABINOID URINE SCREEN NEGATIVE (NEGATIVE)
[2019-02-12 11:44] LABS: *BARBITURATES SCREEN URINE NEGATIVE (NEGATIVE); *BENZODIAZEPINES SCREEN URINE NEGATIVE (NEGATIVE); *COCAINE SCREEN URINE PRESUMTIVE POSITIVE (NEGATIVE); METHADONE URINE SCREEN NEGATIVE (NEGATIVE); PHENCYCLIDINE URINE SCREEN NEGATIVE (NEGATIVE)
[2019-02-12 11:45] LABS: OPIATES URINE SCREEN NEGATIVE (NEGATIVE)
[2019-02-12 12:00] VITALS: BP 135/79
[2019-02-12] MEDS: CLONIDINE 0.1MG TABLET PO SCH ×2 (18:04→21:25)
[2019-02-12 20:00] VITALS: BP 136/97
[2019-02-12] MEDS: CARVEDILOL 12.5MG TABLET PO SCH (21:25)
[2019-02-12] MEDS: AMLODIPINE 5MG TABLET PO SCH (21:26)
[2019-02-13] VITALS (7 sets, daily range): BP systolic 107–168; BP diastolic 68–97
[2019-02-13] MEDS: CLONIDINE 0.1MG TABLET PO SCH ×3 (05:22→22:01)
[2019-02-13 07:28] LABS: BASOPHILS % 1.3 % (0.0-2.0); EOSINOPHILS % 3.4 % (0.0-5.0); HEMATOCRIT. 37.7 % (42.0-52.0); HEMOGLOBIN. 12.5 g/dL (14.0-18.0); LYMPHOCYTES % 15.9 % (20.0-50.0); MEAN CORPUSCULAR HEMOGLOBIN 29.4 pg (28.0-32.0); MEAN CORPUSCULAR VOLUME 88.9 fL (80.0-94.0); MEAN PLATELET VOLUME 7.7 fl (7.4-10.4); MONOCYTES % 12.1 % (2.0-8.0); NEUTROPHILS % 67.3 % (40.0-76.0); PLATELET 284 x1000/uL (130-400); RED BLOOD CELL COUNT 4.24 mill/uL (4.7-6.1); RED CELL DISTRIBUTION WIDTH 16.2 % (11.6-14.6)
[2019-02-13] MEDS: FUROSEMIDE 40MG/4ML VIAL IVP SCH (09:29)
[2019-02-13] MEDS: ENOXAPARIN 40MG/0.4ML SYR SUBCUT SCH (09:29)
[2019-02-13] MEDS: LOSARTAN POTASSIUM 100 MG TABLET PO SCH (09:30)
[2019-02-13] MEDS: AMLODIPINE 5MG TABLET PO SCH ×2 (09:30→20:28)
[2019-02-13] MEDS: CARVEDILOL 12.5MG TABLET PO SCH ×2 (09:30→20:28)
[2019-02-13] MEDS: LACTULOSE 20G/30ML UDC PO SCH ×2 (14:57→22:01)
[2019-02-13] MEDS: ENOXAPARIN 30MG/0.3ML SYR SUBCUT SCH (20:27)
[2019-02-13] MEDS: FUROSEMIDE 100MG/10ML VIAL IVP SCH (20:28)
[2019-02-13] MEDS: HYDROCODONE/ACETAMINOPHEN 5/325MG TABLET PO PRN (20:30)
[2019-02-14] VITALS: BP 105/78
[2019-02-14] MEDS: HYDROCODONE/ACETAMINOPHEN 5/325MG TABLET PO PRN (03:05)
[2019-02-14 04:00] VITALS: BP 121/86
[2019-02-14] MEDS: CLONIDINE 0.1MG TABLET PO SCH ×3 (06:07→21:01)
[2019-02-14] MEDS: LACTULOSE 20G/30ML UDC PO SCH (06:07)
[2019-02-14 07:53] LABS: BASOPHILS % 1.3 % (0.0-2.0); EOSINOPHILS % 3.5 % (0.0-5.0); HEMATOCRIT. 36.7 % (42.0-52.0); LYMPHOCYTES % 22.5 % (20.0-50.0); MEAN CORPUSCULAR HEMOGLOBIN 28.7 pg (28.0-32.0); MEAN CORPUSCULAR VOLUME 87.6 fL (80.0-94.0); MEAN PLATELET VOLUME 7.4 fl (7.4-10.4); MONOCYTES % 7.9 % (2.0-8.0); NEUTROPHILS % 64.8 % (40.0-76.0); PLATELET 298 x1000/uL (130-400); RED CELL DISTRIBUTION WIDTH 15.5 % (11.6-14.6)
[2019-02-14 08:00] VITALS: BP 118/74
[2019-02-14] MEDS: CARVEDILOL 12.5MG TABLET PO SCH ×2 (10:15→21:00)
[2019-02-14] MEDS: AMLODIPINE 5MG TABLET PO SCH ×2 (10:15→21:00)
[2019-02-14] MEDS: LOSARTAN POTASSIUM 100 MG TABLET PO SCH (10:15)
[2019-02-14] MEDS: FUROSEMIDE 100MG/10ML VIAL IVP SCH ×2 (10:16→21:07)
[2019-02-14 12:00] VITALS: BP 107/74
[2019-02-14] MEDS: ENOXAPARIN 30MG/0.3ML SYR SUBCUT SCH ×2 (12:00→21:08)
[2019-02-14 16:00] VITALS: BP 95/59
[2019-02-14 20:00] VITALS: BP 105/69
[2019-02-15] VITALS: BP 117/78
[2019-02-15 04:00] VITALS: BP 129/92
[2019-02-15] MEDS: CLONIDINE 0.1MG TABLET PO SCH ×2 (05:18→17:32)
[2019-02-15 06:30] LABS: HEMATOCRIT. 35.9 % (42.0-52.0); HEMOGLOBIN. 11.7 g/dL (14.0-18.0); MEAN CORPUSCULAR HEMOGLOBIN 28.6 pg (28.0-32.0); MEAN CORPUSCULAR VOLUME 87.5 fL (80.0-94.0); MEAN PLATELET VOLUME 7.8 fl (7.4-10.4); PLATELET 295 x1000/uL (130-400); RED CELL DISTRIBUTION WIDTH 15.3 % (11.6-14.6)
[2019-02-15 08:00] VITALS: BP 108/80
[2019-02-15] MEDS: LOSARTAN POTASSIUM 100 MG TABLET PO SCH (09:00)
[2019-02-15] MEDS: CARVEDILOL 12.5MG TABLET PO SCH ×2 (09:00→21:00)
[2019-02-15] MEDS: AMLODIPINE 5MG TABLET PO SCH (09:00)
[2019-02-15] MEDS: FUROSEMIDE 100MG/10ML VIAL IVP SCH (09:34)
[2019-02-15 10:04] LABS: PLATELET ESTIMATE NORMAL
[2019-02-15 12:00] VITALS: BP 112/84
[2019-02-15] MEDS: ENOXAPARIN 30MG/0.3ML SYR SUBCUT SCH ×2 (12:34→21:40)
[2019-02-15 16:00] VITALS: BP 112/74
[2019-02-15] MEDS: HYDROCODONE/ACETAMINOPHEN 5/325MG TABLET PO PRN (16:34)
[2019-02-15] MEDS: FUROSEMIDE 20MG TABLET PO SCH (17:31)
[2019-02-15 20:00] VITALS: BP 100/66
[2019-02-15] MEDS: AMLODIPINE 2.5MG TABLET PO SCH (21:00)
[2019-02-16] VITALS: BP 115/79
[2019-02-16 04:00] VITALS: BP 127/83
[2019-02-16] MEDS: CLONIDINE 0.1MG TABLET PO SCH ×2 (05:32→17:08)
[2019-02-16] MEDS: FUROSEMIDE 20MG TABLET PO SCH ×2 (05:32→17:04)
[2019-02-16 08:00] VITALS: BP 123/88
[2019-02-16] MEDS: LOSARTAN POTASSIUM 100 MG TABLET PO SCH (08:50)
[2019-02-16] MEDS: AMLODIPINE 2.5MG TABLET PO SCH ×2 (08:50→21:00)
[2019-02-16] MEDS: CARVEDILOL 12.5MG TABLET PO SCH ×2 (08:50→21:00)
[2019-02-16] MEDS: ENOXAPARIN 30MG/0.3ML SYR SUBCUT SCH ×2 (08:51→21:11)
[2019-02-16 12:00] VITALS: BP 100/59
[2019-02-16 16:00] VITALS: BP 110/66
[2019-02-16 20:44] VITALS: BP 103/59
[2019-02-16] MEDS: HYDROCODONE/ACETAMINOPHEN 5/325MG TABLET PO PRN (21:11)
[2019-02-17] VITALS: BP 113/78
[2019-02-17] MEDS: HYDROCODONE/ACETAMINOPHEN 5/325MG TABLET PO PRN ×2 (03:15→08:56)
[2019-02-17 04:00] VITALS: BP 122/84
[2019-02-17] MEDS: FUROSEMIDE 20MG TABLET PO SCH ×2 (06:58→18:05)
[2019-02-17] MEDS: CLONIDINE 0.1MG TABLET PO SCH ×2 (06:58→18:00)
[2019-02-17 08:00] VITALS: BP 116/79
[2019-02-17] MEDS: CARVEDILOL 12.5MG TABLET PO SCH ×2 (08:47→22:13)
[2019-02-17] MEDS: ENOXAPARIN 30MG/0.3ML SYR SUBCUT SCH ×2 (08:47→22:13)
[2019-02-17] MEDS: AMLODIPINE 2.5MG TABLET PO SCH ×2 (08:47→22:13)
[2019-02-17] MEDS: LOSARTAN POTASSIUM 100 MG TABLET PO SCH (08:47)
[2019-02-17 12:00] VITALS: BP 102/62
[2019-02-17 16:00] VITALS: BP 103/63
[2019-02-17 20:00] VITALS: BP 122/79
[2019-02-18] VITALS: BP 104/62
[2019-02-18] MEDS: LORAZEPAM 2MG/ML CPJ IV PRN
[2019-02-18 04:00] VITALS: BP 120/72
[2019-02-18] MEDS: FUROSEMIDE 20MG TABLET PO SCH ×2 (06:53→18:22)
[2019-02-18] MEDS: CLONIDINE 0.1MG TABLET PO SCH ×2 (06:54→18:00)
[2019-02-18 08:00] VITALS: BP 126/88
[2019-02-18] MEDS: ENOXAPARIN 30MG/0.3ML SYR SUBCUT SCH ×2 (08:47→21:01)
[2019-02-18] MEDS: LOSARTAN POTASSIUM 100 MG TABLET PO SCH (08:47)
[2019-02-18] MEDS: AMLODIPINE 2.5MG TABLET PO SCH ×2 (08:48→21:03)
[2019-02-18] MEDS: CARVEDILOL 12.5MG TABLET PO SCH ×2 (08:48→21:02)
[2019-02-18 12:00] VITALS: BP 113/81
[2019-02-18 16:00] VITALS: BP 131/88
[2019-02-18 20:00] VITALS: BP 118/88
[2019-02-18] MEDS: MORPHINE SULFATE 2 MG/ML CPJ (NOT FOR IM USE) IV PRN (21:03)
[2019-02-19] VITALS: BP 141/80
[2019-02-19] MEDS: MORPHINE SULFATE 2 MG/ML CPJ (NOT FOR IM USE) IV PRN (01:12)
[2019-02-19] MEDS: LORAZEPAM 2MG/ML CPJ IV PRN (03:44)
[2019-02-19 04:00] VITALS: BP 120/72
[2019-02-19] MEDS: FUROSEMIDE 20MG TABLET PO SCH (05:43)
[2019-02-19] MEDS: CLONIDINE 0.1MG TABLET PO SCH (05:43)
[2019-02-19 06:15] LABS: BASOPHILS % 1.8 % (0.0-2.0); EOSINOPHILS % 3.8 % (0.0-5.0); HEMATOCRIT. 35.6 % (42.0-52.0); HEMOGLOBIN. 11.8 g/dL (14.0-18.0); LYMPHOCYTES % 22.6 % (20.0-50.0); MEAN CORPUSCULAR HEMOGLOBIN 29.1 pg (28.0-32.0); MEAN CORPUSCULAR VOLUME 87.5 fL (80.0-94.0); MEAN PLATELET VOLUME 7.8 fl (7.4-10.4); MONOCYTES % 11.2 % (2.0-8.0); NEUTROPHILS % 60.6 % (40.0-76.0); PLATELET 266 x1000/uL (130-400); RED BLOOD CELL COUNT 4.07 mill/uL (4.7-6.1); RED CELL DISTRIBUTION WIDTH 15.4 % (11.6-14.6)
[2019-02-19 08:00] VITALS: BP 117/85
[2019-02-19] MEDS: AMLODIPINE 2.5MG TABLET PO SCH (09:07)
[2019-02-19] MEDS: CARVEDILOL 12.5MG TABLET PO SCH (09:07)
[2019-02-19] MEDS: LOSARTAN POTASSIUM 100 MG TABLET PO SCH (09:07)
[2019-02-19] MEDS: ENOXAPARIN 30MG/0.3ML SYR SUBCUT SCH (09:08)
[2019-02-19 12:00] VITALS: BP 110/61
[2019-02-19 16:00] VITALS: BP 108/65
[2019-02-19 17:35] VITALS: BP 108/65
== END 2019-02-19 18:20 | disposition home or self-care (01) | DRG 194 ==
LOC: ER 02:00 → 5WST 05:38 → ENRESERV 05:57
PROVIDERS: ADMIT Internal Medicine; ATTEND Internal Medicine
DX: I13.0 Hypertensive heart and chronic kidney disease with heart failure and stage 1 through stage 4 chronic kidney disease, or unspecified chronic kidney disease (principal); J96.00 Acute respiratory failure, unspecified whether with hypoxia or hypercapnia; E44.0 Moderate protein-calorie malnutrition; E72.20 Disorder of urea cycle metabolism, unspecified; I50.23 Acute on chronic systolic (congestive) heart failure; N17.9 Acute kidney failure, unspecified; D64.9 Anemia, unspecified; E11.22 Type 2 diabetes mellitus with diabetic chronic kidney disease; E87.8 Other disorders of electrolyte and fluid balance, not elsewhere classified; F14.90 Cocaine use, unspecified, uncomplicated; I27.20 Pulmonary hypertension, unspecified; I42.0 Dilated cardiomyopathy; J45.909 Unspecified asthma, uncomplicated; N18.9 Chronic kidney disease, unspecified; G82.20 Paraplegia, unspecified; I34.0 Nonrheumatic mitral (valve) insufficiency; I50.82 Biventricular heart failure; R00.0 Tachycardia, unspecified; Z60.2 Problems related to living alone; J44.9 Chronic obstructive pulmonary disease, unspecified; L97.919 Non-pressure chronic ulcer of unspecified part of right lower leg with unspecified severity; I87.8 Other specified disorders of veins; Z91.14 Patient's other noncompliance with medication regimen; Z79.899 Other long term (current) drug therapy; Z88.0 Allergy status to penicillin; Z59.0 Homelessness; Z76.5 Malingerer [conscious simulation]; Z91.19 Patient's noncompliance with other medical treatment and regimen; Z71.6 Tobacco abuse counseling; Z82.49 Family history of ischemic heart disease and other diseases of the circulatory system; Z68.32 Body mass index [BMI] 32.0-32.9, adult
CPT/HCPCS: 36415; 36600; 71045; 80048; 80305; 81003; 82140; 82375; 82805; 83605; 83880; 84484; 93005; 93306; 93970; 96374; 99285; J1650; J1940; J2060; J2270

== ENCOUNTER 2019-06-23 01:19 | Inpatient (IN) | payer MEDICAID ==
[~2019-06-23] VITALS: Ht 188 cm; Wt 87.5 kg
[2019-06-23] MEDS ORDERED: ASPIRIN 81MG TABLET PO ONE (02:00)
[2019-06-23] MEDS ORDERED: FUROSEMIDE 40MG/4ML VIAL IV ONE (02:00)
[2019-06-23] MEDS ORDERED: NITROGLYCERIN 0.4MG TABLET SL SL PRN (02:00)
[2019-06-23] MEDS ORDERED: MORPHINE SULFATE 4 MG/ML CPJ (NOT FOR IM USE) IV ONE (02:00)
[2019-06-23 02:31] LABS: BASOPHILS % 1.6 % (0.0-2.0); EOSINOPHILS % 2.1 % (0.0-5.0); HEMOGLOBIN. 10.7 g/dL (14.0-18.0); LYMPHOCYTES % 14.8 % (20.0-50.0); MEAN CORPUSCULAR HEMOGLOBIN 28.9 pg (28.0-32.0); MEAN CORPUSCULAR VOLUME 89.3 fL (80.0-94.0); MEAN PLATELET VOLUME 7.2 fl (7.4-10.4); MONOCYTES % 8.4 % (2.0-8.0); NEUTROPHILS % 73.1 % (40.0-76.0); PLATELET 310 x1000/uL (130-400); RED BLOOD CELL COUNT 3.69 mill/uL (4.7-6.1); RED CELL DISTRIBUTION WIDTH 15.8 % (11.6-14.6)
[2019-06-23 02:39] LABS: CHLORIDE 114 mEq/L (98-107); INR 1.2; PARTIAL THROMBOPLASTIN TIME 27.9 sec (23.4-31.0)
[2019-06-23 02:45] LABS: ETHANOL BLOOD < 10 mg/dL
[2019-06-23 03:08] LABS: *AMPHETAMINES SCREEN URINE NEGATIVE (NEGATIVE); *BARBITURATES SCREEN URINE NEGATIVE (NEGATIVE); *BENZODIAZEPINES SCREEN URINE NEGATIVE (NEGATIVE); *COCAINE SCREEN URINE PRESUMTIVE POSITIVE (NEGATIVE); METHADONE URINE SCREEN NEGATIVE (NEGATIVE)
[2019-06-23 03:09] LABS: CANNABINOID URINE SCREEN NEGATIVE (NEGATIVE); OPIATES URINE SCREEN PRESUMTIVE POSITIVE (NEGATIVE); PHENCYCLIDINE URINE SCREEN NEGATIVE (NEGATIVE)
[2019-06-23 05:55] VITALS: BP 147/105
[2019-06-23 06:26] VITALS: BP 147/105
[2019-06-23] MEDS ORDERED: LORAZEPAM 0.5MG TABLET PO PRN (07:30)
[2019-06-23 08:00] VITALS: BP 160/102
[2019-06-23] MEDS: ENOXAPARIN 40MG/0.4ML SYR SUBCUT SCH (09:00)
[2019-06-23] MEDS ORDERED: CLONIDINE 0.1MG TABLET PO PRN (10:00)
[2019-06-23 10:21] LABS: BASOPHILS % 1.3 % (0.0-2.0); EOSINOPHILS % 3.4 % (0.0-5.0); HEMATOCRIT. 32.2 % (42.0-52.0); HEMOGLOBIN. 10.5 g/dL (14.0-18.0); LYMPHOCYTES % 16.5 % (20.0-50.0); MEAN CORPUSCULAR VOLUME 88.8 fL (80.0-94.0); MEAN PLATELET VOLUME 7.1 fl (7.4-10.4); MONOCYTES % 11.6 % (2.0-8.0); NEUTROPHILS % 67.2 % (40.0-76.0); PLATELET 314 x1000/uL (130-400); RED BLOOD CELL COUNT 3.63 mill/uL (4.7-6.1); RED CELL DISTRIBUTION WIDTH 15.7 % (11.6-14.6)
[2019-06-23 12:00] VITALS: BP 141/91
[2019-06-23 16:00] VITALS: BP 153/102
[2019-06-23] MEDS ORDERED: LORAZEPAM 2MG/ML CPJ IV PRN (16:00)
[2019-06-23] MEDS ORDERED: ACETAMINOPHEN 325MG TABLET PO PRN (16:15)
[2019-06-23] MEDS ORDERED: MAGNESIUM/ALUMINUM HYDROXIDE/SIMETHICONE 30ML UDC PO PRN (16:15)
[2019-06-23] MEDS ORDERED: ONDANSETRON HCL 4MG/2ML INJ IV PRN (16:15)
[2019-06-23] MEDS: AMLODIPINE 5MG TABLET PO SCH (16:54)
[2019-06-23 20:00] VITALS: BP 160/108
[2019-06-24] VITALS: BP 140/89
[2019-06-24 04:00] VITALS: BP 136/88
[2019-06-24 08:00] VITALS: BP 149/100
[2019-06-24] MEDS: ENOXAPARIN 40MG/0.4ML SYR SUBCUT SCH (08:40)
[2019-06-24] MEDS: AMLODIPINE 5MG TABLET PO SCH (08:40)
[2019-06-24 10:24] LABS: BASOPHILS % 1.2 % (0.0-2.0); EOSINOPHILS % 3.3 % (0.0-5.0); HEMATOCRIT. 34.6 % (42.0-52.0); HEMOGLOBIN. 11.3 g/dL (14.0-18.0); LYMPHOCYTES % 10.9 % (20.0-50.0); MEAN CORPUSCULAR VOLUME 89.1 fL (80.0-94.0); MEAN PLATELET VOLUME 7.3 fl (7.4-10.4); MONOCYTES % 8.8 % (2.0-8.0); NEUTROPHILS % 75.8 % (40.0-76.0); PLATELET 328 x1000/uL (130-400); RED BLOOD CELL COUNT 3.88 mill/uL (4.7-6.1); RED CELL DISTRIBUTION WIDTH 15.6 % (11.6-14.6)
[2019-06-24 10:42] LABS: PHOSPHORUS 2.1 mg/dL (2.5-4.9)
[2019-06-24] MEDS: HYDROCODONE/ACETAMINOPHEN 5/325MG TABLET PO PRN ×2 (11:07→20:54)
[2019-06-24 12:00] VITALS: BP 146/79
[2019-06-24] MEDS ORDERED: FUROSEMIDE 100MG/10ML VIAL IVP SCH (12:00)
[2019-06-24] MEDS ORDERED: POTASSIUM-SODIUM PHOSPHATE POWDER PACKET PO NR (12:30)
[2019-06-24] MEDS ORDERED: MAGNESIUM 2 G PREMIX 50 ML IV NR (13:00)
[2019-06-24] MEDS: FUROSEMIDE 100MG/10ML VIAL IVP SCH ×2 (13:06→20:54)
[2019-06-24] MEDS: ASPIRIN 81MG TABLET PO SCH (13:06)
[2019-06-24 16:12] VITALS: BP 129/85
[2019-06-24 20:00] VITALS: BP 136/88
[2019-06-25] VITALS: BP 147/86
[2019-06-25 04:00] VITALS: BP 139/97
[2019-06-25] MEDS: HYDROCODONE/ACETAMINOPHEN 5/325MG TABLET PO PRN (04:46)
[2019-06-25 08:00] VITALS: BP 142/103
[2019-06-25 08:07] LABS: HEMATOCRIT. 33.4 % (42.0-52.0); HEMOGLOBIN. 11.2 g/dL (14.0-18.0); MEAN CORPUSCULAR HEMOGLOBIN 29.3 pg (28.0-32.0); MEAN CORPUSCULAR VOLUME 87.7 fL (80.0-94.0); MEAN PLATELET VOLUME 7.3 fl (7.4-10.4); PLATELET 322 x1000/uL (130-400); RED BLOOD CELL COUNT 3.81 mill/uL (4.7-6.1); RED CELL DISTRIBUTION WIDTH 15.3 % (11.6-14.6)
[2019-06-25] MEDS: ASPIRIN 81MG TABLET PO SCH (09:45)
[2019-06-25] MEDS: AMLODIPINE 5MG TABLET PO SCH (09:45)
[2019-06-25] MEDS: LOSARTAN POTASSIUM 25 MG TABLET PO SCH (09:45)
[2019-06-25] MEDS: FUROSEMIDE 100MG/10ML VIAL IVP SCH (09:46)
[2019-06-25] MEDS: ENOXAPARIN 40MG/0.4ML SYR SUBCUT SCH (09:49)
[2019-06-25 12:00] VITALS: BP 122/77
[2019-06-25 13:12] LABS: PLATELET ESTIMATE NORMAL
[2019-06-25 16:00] VITALS: BP 111/71
[2019-06-25] MEDS: FUROSEMIDE 40MG/4ML VIAL IVP SCH (18:10)
[2019-06-25 20:00] VITALS: BP 107/56
[2019-06-26] VITALS: BP 123/81
[2019-06-26 04:00] VITALS: BP 132/84
[2019-06-26] MEDS: HYDROCODONE/ACETAMINOPHEN 5/325MG TABLET PO PRN ×3 (04:31→20:53)
[2019-06-26 07:07] LABS: HEMATOCRIT. 35.8 % (42.0-52.0); HEMOGLOBIN. 11.9 g/dL (14.0-18.0); MEAN CORPUSCULAR HEMOGLOBIN 29.1 pg (28.0-32.0); MEAN PLATELET VOLUME 7.5 fl (7.4-10.4); PLATELET 326 x1000/uL (130-400); RED BLOOD CELL COUNT 4.07 mill/uL (4.7-6.1); RED CELL DISTRIBUTION WIDTH 15.1 % (11.6-14.6)
[2019-06-26 08:00] VITALS: BP 136/99
[2019-06-26] MEDS: LOSARTAN POTASSIUM 25 MG TABLET PO SCH (10:00)
[2019-06-26] MEDS: AMLODIPINE 5MG TABLET PO SCH (10:00)
[2019-06-26] MEDS: ENOXAPARIN 40MG/0.4ML SYR SUBCUT SCH (10:00)
[2019-06-26] MEDS: ASPIRIN 81MG TABLET PO SCH (10:00)
[2019-06-26] MEDS: FUROSEMIDE 40MG/4ML VIAL IVP SCH ×2 (10:01→17:10)
[2019-06-26] MEDS ORDERED: MAGNESIUM 4 G PREMIX 100 ML IV NR (11:00)
[2019-06-26 20:00] VITALS: BP 134/80
[2019-06-26] MEDS: CARVEDILOL 3.125 MG TABLET PO SCH (20:53)
[2019-06-27] VITALS: BP 132/75
[2019-06-27 04:00] VITALS: BP 142/91
[2019-06-27] MEDS: HYDROCODONE/ACETAMINOPHEN 5/325MG TABLET PO PRN ×3 (05:16→21:53)
[2019-06-27 08:00] VITALS: BP 126/100
[2019-06-27] MEDS: ENOXAPARIN 40MG/0.4ML SYR SUBCUT SCH (09:00)
[2019-06-27] MEDS: ASPIRIN 81MG TABLET PO SCH (09:48)
[2019-06-27] MEDS: AMLODIPINE 5MG TABLET PO SCH ×2 (09:48→21:49)
[2019-06-27] MEDS: FUROSEMIDE 40MG/4ML VIAL IVP SCH ×2 (09:48→17:21)
[2019-06-27] MEDS: CARVEDILOL 3.125 MG TABLET PO SCH (09:49)
[2019-06-27] MEDS: LOSARTAN POTASSIUM 25 MG TABLET PO SCH (09:49)
[2019-06-27 11:44] LABS: PLATELET ESTIMATE NORMAL
[2019-06-27 12:00] VITALS: BP 197/89
[2019-06-27 12:41] LABS: BASOPHILS % 1.4 % (0.0-2.0); EOSINOPHILS % 6.6 % (0.0-5.0); HEMATOCRIT. 37.8 % (42.0-52.0); HEMOGLOBIN. 12.5 g/dL (14.0-18.0); LYMPHOCYTES % 18.5 % (20.0-50.0); MEAN CORPUSCULAR VOLUME 87.6 fL (80.0-94.0); MEAN PLATELET VOLUME 7.3 fl (7.4-10.4); MONOCYTES % 14.1 % (2.0-8.0); NEUTROPHILS % 59.4 % (40.0-76.0); PLATELET 335 x1000/uL (130-400); RED BLOOD CELL COUNT 4.31 mill/uL (4.7-6.1); RED CELL DISTRIBUTION WIDTH 15.2 % (11.6-14.6)
[2019-06-27 16:00] VITALS: BP 123/89
[2019-06-27 20:00] VITALS: BP 116/74
[2019-06-27] MEDS: CARVEDILOL 6.25 MG TABLET PO SCH (21:49)
[2019-06-28] VITALS: BP 110/72
[2019-06-28 04:00] VITALS: BP 138/95
[2019-06-28 08:00] VITALS: BP 133/80
[2019-06-28] MEDS: ASPIRIN 81MG TABLET PO SCH (10:54)
[2019-06-28] MEDS: AMLODIPINE 5MG TABLET PO SCH (10:54)
[2019-06-28] MEDS: FUROSEMIDE 40MG/4ML VIAL IVP SCH ×2 (10:54→17:00)
[2019-06-28] MEDS: CARVEDILOL 6.25 MG TABLET PO SCH (10:55)
[2019-06-28] MEDS: LOSARTAN POTASSIUM 25 MG TABLET PO SCH (10:55)
[2019-06-28] MEDS: ENOXAPARIN 40MG/0.4ML SYR SUBCUT SCH (10:59)
[2019-06-28 12:00] VITALS: BP 124/68
[2019-06-28 14:51] VITALS: BP 124/68
[2019-06-28 16:00] VITALS: BP 128/55
== END 2019-06-28 19:11 | disposition home or self-care (01) | DRG 816 ==
LOC: ER 01:19 → 6WST 03:18 → EDBEDREQ 03:20 → EDBEDREQTM 03:20 → ENRESERV 05:13 → 6WST 06:55 → 5WST 06-24 11:32
PROVIDERS: ADMIT Internal Medicine; ATTEND Internal Medicine
DX: T40.5X1A Poisoning by cocaine, accidental (unintentional), initial encounter (principal); I50.23 Acute on chronic systolic (congestive) heart failure; E87.8 Other disorders of electrolyte and fluid balance, not elsewhere classified; I27.20 Pulmonary hypertension, unspecified; I42.9 Cardiomyopathy, unspecified; R07.89 Other chest pain; I13.0 Hypertensive heart and chronic kidney disease with heart failure and stage 1 through stage 4 chronic kidney disease, or unspecified chronic kidney disease; N18.3 Chronic kidney disease, stage 3 (moderate); I83.009 Varicose veins of unspecified lower extremity with ulcer of unspecified site; L97.909 Non-pressure chronic ulcer of unspecified part of unspecified lower leg with unspecified severity; D64.9 Anemia, unspecified; I25.10 Atherosclerotic heart disease of native coronary artery without angina pectoris; J45.909 Unspecified asthma, uncomplicated; E78.5 Hyperlipidemia, unspecified; I73.89 Other specified peripheral vascular diseases; M94.0 Chondrocostal junction syndrome [Tietze]; Z91.14 Patient's other noncompliance with medication regimen; Z82.49 Family history of ischemic heart disease and other diseases of the circulatory system; Z91.19 Patient's noncompliance with other medical treatment and regimen; Z88.0 Allergy status to penicillin; Z79.899 Other long term (current) drug therapy; Z59.0 Homelessness; Z71.51 Drug abuse counseling and surveillance of drug abuser; Y92.89 Other specified places as the place of occurrence of the external cause
CPT/HCPCS: 36415; 71045; 80048; 80053; 80061; 80305; 80320; 83735; 83880; 84100; 84443; 84484; 85025; 93005; 93306; 93970; 96374; 99291; J1650; J1940; J2270; J3475; J7040; G0480

== ENCOUNTER 2019-07-05 03:59 | Emergency (ER) | payer MEDICAID ==
[~2019-07-05] VITALS: Ht 182.9 cm; Wt 100.0 kg
[2019-07-05 04:05] VITALS: BP 161/109
[2019-07-05] MEDS ORDERED: DEXTROSE 50% WATER 50ML SYRINGE IV ONE (04:30)
[2019-07-05 05:02] LABS: BASOPHILS % 0.9 % (0.0-2.0); EOSINOPHILS % 1.6 % (0.0-5.0); HEMATOCRIT. 35.1 % (42.0-52.0); HEMOGLOBIN. 11.4 g/dL (14.0-18.0); LYMPHOCYTES % 12.6 % (20.0-50.0); MEAN CORPUSCULAR HEMOGLOBIN 29.2 pg (28.0-32.0); MEAN CORPUSCULAR VOLUME 89.5 fL (80.0-94.0); MEAN PLATELET VOLUME 8.3 fl (7.4-10.4); MONOCYTES % 9.3 % (2.0-8.0); NEUTROPHILS % 75.6 % (40.0-76.0); PLATELET 222 x1000/uL (130-400); RED BLOOD CELL COUNT 3.92 mill/uL (4.7-6.1); RED CELL DISTRIBUTION WIDTH 14.9 % (11.6-14.6)
[2019-07-05 05:05] LABS: CHLORIDE 110 mEq/L (98-107)
[2019-07-05 05:09] LABS: ETHANOL BLOOD < 10 mg/dL
[2019-07-05 10:44] LABS: *AMPHETAMINES SCREEN URINE NEGATIVE (NEGATIVE); *BARBITURATES SCREEN URINE NEGATIVE (NEGATIVE); *BENZODIAZEPINES SCREEN URINE NEGATIVE (NEGATIVE); *COCAINE SCREEN URINE PRESUMTIVE POSITIVE (NEGATIVE); METHADONE URINE SCREEN NEGATIVE (NEGATIVE)
[2019-07-05 10:45] LABS: CANNABINOID URINE SCREEN NEGATIVE (NEGATIVE); OPIATES URINE SCREEN NEGATIVE (NEGATIVE); PHENCYCLIDINE URINE SCREEN NEGATIVE (NEGATIVE)
== END 2019-07-05 07:01 | disposition home or self-care (01) ==
LOC: ER 03:59
DX: R07.89 Other chest pain (principal); I13.10 Hypertensive heart and chronic kidney disease without heart failure, with stage 1 through stage 4 chronic kidney disease, or unspecified chronic kidney disease; N18.9 Chronic kidney disease, unspecified; I50.9 Heart failure, unspecified; J45.909 Unspecified asthma, uncomplicated; F14.10 Cocaine abuse, uncomplicated; F19.10 Other psychoactive substance abuse, uncomplicated; Z59.0 Homelessness; Z88.0 Allergy status to penicillin; Z79.82 Long term (current) use of aspirin; Z79.899 Other long term (current) drug therapy
CPT/HCPCS: 36415; 71045; 80053; 80305; 80320; 82962; 83880; 84484; 85025; 93005; 96374; 99284; Z7610; G0480

== ENCOUNTER 2019-07-05 11:34 | Inpatient (IN) | payer MEDICAID ==
[~2019-07-05] VITALS: Ht 172.7 cm; Wt 87.5 kg
[2019-07-05] MEDS ORDERED: MORPHINE SULFATE 4 MG/ML CPJ (NOT FOR IM USE) IV STA (12:17)
[2019-07-05 14:25] LABS: BASOPHILS % 1.1 % (0.0-2.0); EOSINOPHILS % 2.1 % (0.0-5.0); HEMATOCRIT. 36.3 % (42.0-52.0); HEMOGLOBIN. 11.7 g/dL (14.0-18.0); LYMPHOCYTES % 13.1 % (20.0-50.0); MEAN CORPUSCULAR HEMOGLOBIN 28.4 pg (28.0-32.0); MEAN CORPUSCULAR VOLUME 88.4 fL (80.0-94.0); MEAN PLATELET VOLUME 8.5 fl (7.4-10.4); MONOCYTES % 7.5 % (2.0-8.0); NEUTROPHILS % 76.2 % (40.0-76.0); PLATELET 238 x1000/uL (130-400)
[2019-07-05 14:33] LABS: CHLORIDE 110 mEq/L (98-107)
[2019-07-05] MEDS ORDERED: DOCUSATE SODIUM 100MG CAPSULE PO PRN (15:00)
[2019-07-05] MEDS ORDERED: ONDANSETRON HCL 4MG/2ML INJ IV PRN (15:00)
[2019-07-05] MEDS ORDERED: ACETAMINOPHEN 325MG TABLET PO PRN (15:00)
[2019-07-05] MEDS ORDERED: ENALAPRIL 2.5MG/2ML VIAL 2ML IV ONE (15:15)
[2019-07-05] MEDS ORDERED: FUROSEMIDE 40MG/4ML VIAL IVP ONE (15:15)
[2019-07-05] MEDS ORDERED: ENALAPRIL 1.25MG/ML VIAL 1ML IV NR (16:00)
[2019-07-05] MEDS ORDERED: FUROSEMIDE 40MG/4ML VIAL IV SCH (17:00)
[2019-07-05] MEDS: HYDROCODONE/ACETAMINOPHEN 5/325MG TABLET PO PRN (21:22)
[2019-07-05] MEDS: CLONIDINE 0.1MG TABLET PO PRN (21:23)
[2019-07-05 22:10] VITALS: BP 155/97
[2019-07-05 22:25] VITALS: BP 155/97
[2019-07-05] MEDS: AMLODIPINE 5MG TABLET PO SCH (23:16)
[2019-07-05] MEDS: HEPARIN 5000 UNITS/ML VIAL SUBCUT SCH (23:17)
[2019-07-05 23:44] LABS: CREATINE KINASE MB FRACTION 2.7 ng/mL (0.5-3.6)
[2019-07-06] VITALS: BP 126/92
[2019-07-06 01:16] LABS: *AMPHETAMINES SCREEN URINE NEGATIVE (NEGATIVE); *BARBITURATES SCREEN URINE NEGATIVE (NEGATIVE); *BENZODIAZEPINES SCREEN URINE NEGATIVE (NEGATIVE); *COCAINE SCREEN URINE PRESUMTIVE POSITIVE (NEGATIVE); METHADONE URINE SCREEN NEGATIVE (NEGATIVE)
[2019-07-06 01:17] LABS: CANNABINOID URINE SCREEN NEGATIVE (NEGATIVE); OPIATES URINE SCREEN NEGATIVE (NEGATIVE); PHENCYCLIDINE URINE SCREEN NEGATIVE (NEGATIVE)
[2019-07-06 04:00] VITALS: BP 134/91
[2019-07-06] MEDS: FUROSEMIDE 20MG/2ML VIAL IV SCH ×2 (06:38→17:19)
[2019-07-06 08:00] VITALS: BP 124/88
[2019-07-06] MEDS: AMLODIPINE 5MG TABLET PO SCH ×2 (09:08→22:55)
[2019-07-06] MEDS: ASPIRIN 81MG EC TABLET PO SCH (09:08)
[2019-07-06] MEDS: HEPARIN 5000 UNITS/ML VIAL SUBCUT SCH ×2 (09:08→22:59)
[2019-07-06 09:12] LABS: BASOPHILS % 1.4 % (0.0-2.0); EOSINOPHILS % 3.3 % (0.0-5.0); HEMATOCRIT. 34.7 % (42.0-52.0); HEMOGLOBIN. 11.3 g/dL (14.0-18.0); MEAN CORPUSCULAR HEMOGLOBIN 28.6 pg (28.0-32.0); MEAN CORPUSCULAR VOLUME 88.1 fL (80.0-94.0); MONOCYTES % 8.9 % (2.0-8.0); NEUTROPHILS % 74.4 % (40.0-76.0); PLATELET 226 x1000/uL (130-400); RED BLOOD CELL COUNT 3.94 mill/uL (4.7-6.1)
[2019-07-06 09:14] LABS: CREATINE KINASE MB FRACTION 2.7 ng/mL (0.5-3.6)
[2019-07-06] MEDS: LORAZEPAM 2MG/ML CPJ IV PRN ×2 (11:34→23:22)
[2019-07-06 12:00] VITALS: BP 125/91
[2019-07-06 16:00] VITALS: BP 123/95
[2019-07-06 20:00] VITALS: BP 123/86
[2019-07-06 22:35] LABS: T4 FREE 1.06 ng/dL (0.76-1.46)
[2019-07-07] VITALS: BP 130/85
[2019-07-07] MEDS: HYDROCODONE/ACETAMINOPHEN 5/325MG TABLET PO PRN (03:38)
[2019-07-07 04:00] VITALS: BP 149/95
[2019-07-07] MEDS: FUROSEMIDE 20MG/2ML VIAL IV SCH ×2 (08:56→16:30)
[2019-07-07] MEDS: HEPARIN 5000 UNITS/ML VIAL SUBCUT SCH ×2 (08:56→20:32)
[2019-07-07] MEDS: ASPIRIN 81MG EC TABLET PO SCH (08:57)
[2019-07-07] MEDS: AMLODIPINE 5MG TABLET PO SCH ×2 (08:57→20:40)
[2019-07-07 12:00] VITALS: BP 122/77
[2019-07-07 16:00] VITALS: BP 136/96
[2019-07-07] MEDS: CLONIDINE 0.1MG TABLET PO PRN (16:30)
[2019-07-07 20:00] VITALS: BP 121/72
[2019-07-07] MEDS: IPRATROPIUM/ALBUTEROL 0.5-3(2.5)MG/3ML NEB NEB PRN (21:09)
[2019-07-08] VITALS: BP 120/77
[2019-07-08 04:00] VITALS: BP 136/79
[2019-07-08] MEDS: FUROSEMIDE 20MG/2ML VIAL IV SCH ×2 (06:13→17:38)
[2019-07-08 08:04] LABS: BASOPHILS % 1.3 % (0.0-2.0); EOSINOPHILS % 3.9 % (0.0-5.0); HEMATOCRIT. 35.7 % (42.0-52.0); HEMOGLOBIN. 11.6 g/dL (14.0-18.0); LYMPHOCYTES % 18.5 % (20.0-50.0); MEAN CORPUSCULAR HEMOGLOBIN 28.7 pg (28.0-32.0); MEAN PLATELET VOLUME 8.2 fl (7.4-10.4); MONOCYTES % 11.2 % (2.0-8.0); NEUTROPHILS % 65.1 % (40.0-76.0); PLATELET 261 x1000/uL (130-400); RED BLOOD CELL COUNT 4.05 mill/uL (4.7-6.1); RED CELL DISTRIBUTION WIDTH 14.9 % (11.6-14.6)
[2019-07-08] MEDS: HEPARIN 5000 UNITS/ML VIAL SUBCUT SCH ×2 (09:36→21:16)
[2019-07-08] MEDS: ASPIRIN 81MG EC TABLET PO SCH (09:36)
[2019-07-08] MEDS: AMLODIPINE 5MG TABLET PO SCH ×2 (09:36→21:16)
[2019-07-08 12:00] VITALS: BP 135/88
[2019-07-08 16:00] VITALS: BP 132/79
[2019-07-08 20:00] VITALS: BP 143/102
[2019-07-08] MEDS: IPRATROPIUM/ALBUTEROL 0.5-3(2.5)MG/3ML NEB NEB PRN (21:13)
[2019-07-09] VITALS: BP 133/91
[2019-07-09] MEDS: HYDROCODONE/ACETAMINOPHEN 5/325MG TABLET PO PRN ×2 (00:41→08:42)
[2019-07-09 04:00] VITALS: BP 132/88
[2019-07-09] MEDS: FUROSEMIDE 20MG/2ML VIAL IV SCH (07:10)
[2019-07-09 07:14] LABS: BASOPHILS % 1.5 % (0.0-2.0); EOSINOPHILS % 5.1 % (0.0-5.0); HEMATOCRIT. 36.2 % (42.0-52.0); HEMOGLOBIN. 11.8 g/dL (14.0-18.0); LYMPHOCYTES % 17.1 % (20.0-50.0); MEAN CORPUSCULAR HEMOGLOBIN 28.8 pg (28.0-32.0); MEAN CORPUSCULAR VOLUME 87.8 fL (80.0-94.0); MONOCYTES % 10.4 % (2.0-8.0); NEUTROPHILS % 65.9 % (40.0-76.0); PLATELET 271 x1000/uL (130-400); RED BLOOD CELL COUNT 4.12 mill/uL (4.7-6.1); RED CELL DISTRIBUTION WIDTH 14.8 % (11.6-14.6)
[2019-07-09 08:00] VITALS: BP 143/101
[2019-07-09] MEDS: IPRATROPIUM/ALBUTEROL 0.5-3(2.5)MG/3ML NEB NEB PRN (08:11)
[2019-07-09] MEDS: ASPIRIN 81MG EC TABLET PO SCH (08:34)
[2019-07-09] MEDS: AMLODIPINE 5MG TABLET PO SCH (08:34)
[2019-07-09] MEDS: HEPARIN 5000 UNITS/ML VIAL SUBCUT SCH (08:34)
[2019-07-09] MEDS ORDERED: AMLO5TAB88 PO (08:56)
[2019-07-09] MEDS ORDERED: ASPI-1158 PO (08:56)
[2019-07-09] MEDS ORDERED: FURO40TA5 MT (08:56)
[2019-07-09 13:12] VITALS: BP 147/82
== END 2019-07-09 14:00 | disposition home or self-care (01) | DRG 194 ==
LOC: ER 11:34 → 5WST 15:28 → EDBEDREQ 15:32 → ENRESERV 20:52
PROVIDERS: ADMIT Internal Medicine; ATTEND Internal Medicine
DX: I13.0 Hypertensive heart and chronic kidney disease with heart failure and stage 1 through stage 4 chronic kidney disease, or unspecified chronic kidney disease (principal); N17.9 Acute kidney failure, unspecified; E11.22 Type 2 diabetes mellitus with diabetic chronic kidney disease; G82.20 Paraplegia, unspecified; I27.21 Secondary pulmonary arterial hypertension; N18.9 Chronic kidney disease, unspecified; D63.8 Anemia in other chronic diseases classified elsewhere; F17.210 Nicotine dependence, cigarettes, uncomplicated; I34.0 Nonrheumatic mitral (valve) insufficiency; E78.5 Hyperlipidemia, unspecified; J45.909 Unspecified asthma, uncomplicated; I50.23 Acute on chronic systolic (congestive) heart failure; I42.8 Other cardiomyopathies; Z91.19 Patient's noncompliance with other medical treatment and regimen; Z59.0 Homelessness; Z82.49 Family history of ischemic heart disease and other diseases of the circulatory system; Z88.0 Allergy status to penicillin
CPT/HCPCS: 36415; 71045; 80048; 80053; 80061; 80305; 82550; 82553; 82962; 83735; 83880; 84439; 84443; 84481; 84484; 85025; 93005; 93970; 94640; 96374; 96375; 97162; 99285; J1644; J1940; J2060; J2270; J3490; J7040

== ENCOUNTER 2019-08-12 03:31 | Inpatient (IN) | payer MEDICAID ==
[~2019-08-12] VITALS: Ht 182.9 cm; Wt 91.6 kg
[~2019-08-12 03:31] MED LIST: ASPI-1158 PO; FURO40TA5 MT
[2019-08-12] MEDS ORDERED: ONDANSETRON HCL 4MG/2ML INJ IV STA (03:43)
[2019-08-12] MEDS ORDERED: METHYLPREDNISOLONE SOD SUCC 125 MG/2 ML VIAL IV STA (03:43)
[2019-08-12] MEDS ORDERED: SODIUM CHLORIDE 0.9% 1,000 ML IV ONE (03:43)
[2019-08-12] MEDS ORDERED: LORAZEPAM 2MG/ML CPJ IV ONE (03:45)
[2019-08-12] MEDS ORDERED: LEVOFLOXACIN 500MG PREMIX 100 ML IV ONE (03:45)
[2019-08-12] MEDS ORDERED: IPRATROPIUM/ALBUTEROL 0.5-3(2.5)MG/3ML NEB HHN ONE (03:45)
[2019-08-12 04:01] LABS: BASOPHILS % 1.3 % (0.0-2.0); EOSINOPHILS % 1.6 % (0.0-5.0); HEMATOCRIT. 38.2 % (42.0-52.0); HEMOGLOBIN. 12.2 g/dL (14.0-18.0); LYMPHOCYTES % 16.9 % (20.0-50.0); MEAN CORPUSCULAR HEMOGLOBIN 27.9 pg (28.0-32.0); MEAN CORPUSCULAR VOLUME 87.3 fL (80.0-94.0); MEAN PLATELET VOLUME 8.6 fl (7.4-10.4); MONOCYTES % 8.1 % (2.0-8.0); NEUTROPHILS % 72.1 % (40.0-76.0); PLATELET 340 x1000/uL (130-400); RED BLOOD CELL COUNT 4.37 mill/uL (4.7-6.1); RED CELL DISTRIBUTION WIDTH 16.1 % (11.6-14.6)
[2019-08-12 04:07] LABS: CHLORIDE 111 mEq/L (98-107)
[2019-08-12 04:10] LABS: ETHANOL BLOOD < 10 mg/dL
[2019-08-12 04:15] LABS: CREATINE KINASE 319 IU/L (39-308); PARTIAL THROMBOPLASTIN TIME 25.5 sec (23.4-31.0); PROTHROMBIN TIME 10.8 sec (9.6-11.0)
[2019-08-12 04:18] LABS: CREATINE KINASE MB FRACTION 5.1 ng/mL (0.5-3.6)
[2019-08-12] MEDS ORDERED: FUROSEMIDE 40MG/4ML VIAL IVP ONE (05:00)
[2019-08-12] MEDS ORDERED: SODIUM POLYSTYRENE SULFONATE 15 G/60 ML BOT PO ONE (05:00)
[2019-08-12 05:39] LABS: CLARITY URINE CLEAR (CLEAR); COLOR URINE YELLOW (YELLOW); KETONES URINE NEGATIVE (NEGATIVE); LEUKOCYTE ESTERASE URINE NEGATIVE (NEGATIVE); NITRITE URINE NEGATIVE (NEGATIVE); OCCULT BLOOD URINE 1+ (NEGATIVE); PROTEIN URINE 3+ (NEGATIVE); SPECIFIC GRAVITY URINE 1.017 (1.005-1.030); UROBILINOGEN URINE 0.2 E.U./dL (0.2-1.0)
[2019-08-12 05:48] LABS: CANNABINOID URINE SCREEN PRESUMTIVE POSITIVE (NEGATIVE); PHENCYCLIDINE URINE SCREEN NEGATIVE (NEGATIVE)
[2019-08-12 05:49] LABS: *AMPHETAMINES SCREEN URINE NEGATIVE (NEGATIVE); *BARBITURATES SCREEN URINE NEGATIVE (NEGATIVE); *BENZODIAZEPINES SCREEN URINE NEGATIVE (NEGATIVE); *COCAINE SCREEN URINE PRESUMTIVE POSITIVE (NEGATIVE); METHADONE URINE SCREEN NEGATIVE (NEGATIVE); OPIATES URINE SCREEN NEGATIVE (NEGATIVE)
[2019-08-12] MEDS ORDERED: GUAIFENESIN 200MG/10ML SUGAR FREE UDC PO PRN (08:00)
[2019-08-12] MEDS ORDERED: LORAZEPAM 2MG/ML CPJ IV PRN (08:00)
[2019-08-12] MEDS ORDERED: DIPHENHYDRAMINE 50MG/ML VIAL IV PRN (08:00)
[2019-08-12] MEDS ORDERED: NA PHOS,M-B/NA PHOS,DI-BA ENEMA 118ML PR PRN (08:00)
[2019-08-12] MEDS ORDERED: MAGNESIUM/ALUMINUM HYDROXIDE/SIMETHICONE 30ML UDC PO PRN (08:00)
[2019-08-12] MEDS ORDERED: ACETAMINOPHEN 325MG TABLET PO PRN (08:00)
[2019-08-12] MEDS ORDERED: MORPHINE SULFATE 2 MG/ML CPJ (NOT FOR IM USE) IV PRN (08:00)
[2019-08-12] MEDS ORDERED: ENOXAPARIN 40MG/0.4ML SYR SUBCUT SCH (08:00)
[2019-08-12] MEDS ORDERED: DOCUSATE SODIUM 100MG CAPSULE PO PRN (08:00)
[2019-08-12] MEDS ORDERED: CLONIDINE 0.1MG TABLET PO PRN (08:00)
[2019-08-12] MEDS ORDERED: ONDANSETRON HCL 4MG/2ML INJ IV PRN (08:00)
[2019-08-12] MEDS ORDERED: IPRATROPIUM/ALBUTEROL 0.5-3(2.5)MG/3ML NEB NEB PRN (08:00)
[2019-08-12] MEDS ORDERED: ASPIRIN 81MG EC TABLET PO SCH (09:00)
[2019-08-12] MEDS: CLOPIDOGREL 75MG TABLET PO SCH (11:00)
[2019-08-12] MEDS: ASPIRIN 81MG TABLET PO SCH (12:07)
[2019-08-12] MEDS: ENOXAPARIN 40MG/0.4ML SYR SUBCUT SCH (13:00)
[2019-08-12 15:37] LABS: CREATINE KINASE MB FRACTION 3.4 ng/mL (0.5-3.6)
[2019-08-12 22:00] VITALS: BP 117/74
[2019-08-12 22:45] VITALS: BP 117/74
[2019-08-12] MEDS: HYDRALAZINE HCL 50MG TABLET PO SCH (23:52)
[2019-08-13] VITALS: BP 109/65
[2019-08-13 00:47] LABS: CREATINE KINASE MB FRACTION 2.2 ng/mL (0.5-3.6)
[2019-08-13 04:00] VITALS: BP 112/62
[2019-08-13] MEDS ORDERED: FURO-151 PO (04:20)
[2019-08-13 06:18] LABS: BASOPHILS % 0.8 % (0.0-2.0); HEMATOCRIT. 33.2 % (42.0-52.0); HEMOGLOBIN. 10.8 g/dL (14.0-18.0); LYMPHOCYTES % 22.2 % (20.0-50.0); MEAN CORPUSCULAR VOLUME 86.1 fL (80.0-94.0); MEAN PLATELET VOLUME 8.3 fl (7.4-10.4); PLATELET 258 x1000/uL (130-400); RED BLOOD CELL COUNT 3.85 mill/uL (4.7-6.1); RED CELL DISTRIBUTION WIDTH 16.1 % (11.6-14.6)
[2019-08-13 06:53] LABS: CHLORIDE 110 mEq/L (98-107)
[2019-08-13 07:04] LABS: CREATINE KINASE MB FRACTION 2.3 ng/mL (0.5-3.6)
[2019-08-13 07:05] LABS: LDL CHOLESTEROL 76 mg/dL (5-100)
[2019-08-13 07:06] LABS: CREATINE KINASE 155 IU/L (39-308); HDL CHOLESTEROL 65 mg/dL (40-59); T4 FREE 0.86 ng/dL (0.76-1.46)
[2019-08-13 08:00] VITALS: BP 135/98
[2019-08-13] MEDS: CLOPIDOGREL 75MG TABLET PO SCH (08:43)
[2019-08-13] MEDS: ASPIRIN 81MG TABLET PO SCH (08:43)
[2019-08-13] MEDS: HYDRALAZINE HCL 50MG TABLET PO SCH ×2 (08:44→21:44)
[2019-08-13 10:00] VITALS: BP 135/95
[2019-08-13 10:00] LABS: CREATINE KINASE 160 IU/L (39-308)
[2019-08-13 12:00] VITALS: BP 135/97
[2019-08-13] MEDS: ENOXAPARIN 40MG/0.4ML SYR SUBCUT SCH (13:00)
[2019-08-13] MEDS: HYDROCODONE/ACETAMINOPHEN 5/325MG TABLET PO PRN ×2 (17:57→23:00)
[2019-08-13 20:00] VITALS: BP 159/102
[2019-08-14 00:18] VITALS: BP 143/93
[2019-08-14 04:00] VITALS: BP 136/89
[2019-08-14] MEDS: HYDROCODONE/ACETAMINOPHEN 5/325MG TABLET PO PRN (05:06)
[2019-08-14 08:00] VITALS: BP 138/99
[2019-08-14] MEDS: LOSARTAN POTASSIUM 50 MG TABLET PO SCH ×2 (09:00→09:40)
[2019-08-14 09:08] LABS: BASOPHILS % 1.3 % (0.0-2.0); EOSINOPHILS % 3.3 % (0.0-5.0); HEMATOCRIT. 33.3 % (42.0-52.0); LYMPHOCYTES % 17.6 % (20.0-50.0); MEAN CORPUSCULAR HEMOGLOBIN 28.1 pg (28.0-32.0); MEAN CORPUSCULAR VOLUME 85.1 fL (80.0-94.0); MEAN PLATELET VOLUME 7.9 fl (7.4-10.4); MONOCYTES % 8.3 % (2.0-8.0); NEUTROPHILS % 69.5 % (40.0-76.0); PLATELET 250 x1000/uL (130-400); RED BLOOD CELL COUNT 3.91 mill/uL (4.7-6.1); RED CELL DISTRIBUTION WIDTH 15.4 % (11.6-14.6)
[2019-08-14] MEDS: CLOPIDOGREL 75MG TABLET PO SCH (09:40)
[2019-08-14] MEDS: ASPIRIN 81MG TABLET PO SCH (09:40)
[2019-08-14] MEDS: HYDRALAZINE HCL 50MG TABLET PO SCH (09:41)
[2019-08-14 12:00] VITALS: BP 109/69
[2019-08-14] MEDS: ENOXAPARIN 40MG/0.4ML SYR SUBCUT SCH (13:00)
[2019-08-14 14:46] VITALS: BP 109/69
[2019-08-14 17:06] LABS: ANTI-NUCLEAR ANTIBODIES DIRECT Negative (Negative)
== END 2019-08-14 16:21 | disposition home or self-care (01) | DRG 133 ==
LOC: ER 03:31 → 7WST 05:12 → EDBEDREQ 05:14 → EDBEDREQTM 05:14 → ENRESERV 19:21
PROVIDERS: ADMIT Internal Medicine; ATTEND Internal Medicine
DX: J96.00 Acute respiratory failure, unspecified whether with hypoxia or hypercapnia (principal); N17.0 Acute kidney failure with tubular necrosis; E11.22 Type 2 diabetes mellitus with diabetic chronic kidney disease; I42.8 Other cardiomyopathies; N18.4 Chronic kidney disease, stage 4 (severe); E87.5 Hyperkalemia; I13.0 Hypertensive heart and chronic kidney disease with heart failure and stage 1 through stage 4 chronic kidney disease, or unspecified chronic kidney disease; I50.20 Unspecified systolic (congestive) heart failure; I25.10 Atherosclerotic heart disease of native coronary artery without angina pectoris; J45.909 Unspecified asthma, uncomplicated; M62.82 Rhabdomyolysis; Z79.899 Other long term (current) drug therapy; Z82.49 Family history of ischemic heart disease and other diseases of the circulatory system; F14.988 Cocaine use, unspecified with other cocaine-induced disorder
CPT/HCPCS: 36415; 71045; 76770; 80048; 80053; 80061; 80305; 80320; 81003; 82550; 82553; 82570; 83036; 83880; 84156; 84439; 84443; 84484; 85025; 85379; 86038; 86160; 93005; 93306; 94640; 99285; J1650; J1940; J1956; J2060; J2270; J2405; J2930; J7030; G0480

== ENCOUNTER 2019-08-23 20:21 | Inpatient (IN) | payer MEDICAID ==
[~2019-08-23] VITALS: Ht 182.9 cm; Wt 82.6 kg
[~2019-08-23 20:21] MED LIST changes: +FURO-151 PO; -FURO40TA5 MT
[2019-08-23] MEDS ORDERED: ASPIRIN 81MG TABLET PO ONE (21:00)
[2019-08-23] MEDS: NITROGLYCERIN 0.4MG TABLET SL SL PRN ×2 (21:29→21:35)
[2019-08-23 23:02] LABS: BASOPHILS % 1.1 % (0.0-2.0); EOSINOPHILS % 3.4 % (0.0-5.0); HEMATOCRIT. 33.3 % (42.0-52.0); HEMOGLOBIN. 10.8 g/dL (14.0-18.0); LYMPHOCYTES % 17.6 % (20.0-50.0); MEAN CORPUSCULAR HEMOGLOBIN 28.1 pg (28.0-32.0); MEAN CORPUSCULAR VOLUME 86.6 fL (80.0-94.0); MEAN PLATELET VOLUME 7.5 fl (7.4-10.4); NEUTROPHILS % 67.9 % (40.0-76.0); PLATELET 254 x1000/uL (130-400); RED BLOOD CELL COUNT 3.84 mill/uL (4.7-6.1); RED CELL DISTRIBUTION WIDTH 16.9 % (11.6-14.6)
[2019-08-23 23:06] LABS: CHLORIDE 115 mEq/L (98-107)
[2019-08-23 23:10] LABS: ETHANOL BLOOD < 10 mg/dL
[2019-08-24] MEDS: NITROGLYCERIN 0.4MG TABLET SL SL PRN (00:25)
[2019-08-24 01:14] LABS: CANNABINOID URINE SCREEN NEGATIVE (NEGATIVE); OPIATES URINE SCREEN NEGATIVE (NEGATIVE); PHENCYCLIDINE URINE SCREEN NEGATIVE (NEGATIVE)
[2019-08-24 01:15] LABS: *AMPHETAMINES SCREEN URINE NEGATIVE (NEGATIVE); *BARBITURATES SCREEN URINE NEGATIVE (NEGATIVE); *BENZODIAZEPINES SCREEN URINE NEGATIVE (NEGATIVE); *COCAINE SCREEN URINE PRESUMTIVE POSITIVE (NEGATIVE); METHADONE URINE SCREEN NEGATIVE (NEGATIVE)
[2019-08-24] MEDS ORDERED: DOXYCYCLINE HYCLATE 100MG CAPSULE PO ONE (02:00)
[2019-08-24] MEDS ORDERED: LORAZEPAM 0.5MG TABLET PO ONE (02:00)
[2019-08-24] MEDS ORDERED: ACETAMINOPHEN WITH CODEINE 300/30MG TABLET PO ONE (02:00)
[2019-08-24] MEDS ORDERED: ACETAMINOPHEN 325MG TABLET PO PRN (10:00)
[2019-08-24] MEDS ORDERED: ONDANSETRON HCL 4MG/2ML INJ IV PRN (10:00)
[2019-08-24] MEDS: FUROSEMIDE 40MG/4ML VIAL IVP SCH ×2 (11:12→17:26)
[2019-08-24 20:00] VITALS: BP 153/101
[2019-08-24] MEDS: CARVEDILOL 12.5MG TABLET PO SCH (21:31)
[2019-08-25] VITALS: BP 114/78
[2019-08-25 04:00] VITALS: BP 123/80
[2019-08-25] MEDS: HYDROCODONE/ACETAMINOPHEN 10/325MG TABLET PO PRN ×3 (04:36→21:04)
[2019-08-25] MEDS: FUROSEMIDE 40MG/4ML VIAL IVP SCH ×2 (06:22→18:18)
[2019-08-25 07:18] LABS: BASOPHILS % 0.8 % (0.0-2.0); EOSINOPHILS % 5.1 % (0.0-5.0); HEMATOCRIT. 32.3 % (42.0-52.0); HEMOGLOBIN. 10.6 g/dL (14.0-18.0); LYMPHOCYTES % 14.5 % (20.0-50.0); MEAN CORPUSCULAR HEMOGLOBIN 27.7 pg (28.0-32.0); MEAN CORPUSCULAR VOLUME 84.9 fL (80.0-94.0); MEAN PLATELET VOLUME 7.9 fl (7.4-10.4); MONOCYTES % 9.3 % (2.0-8.0); NEUTROPHILS % 70.3 % (40.0-76.0); PLATELET 268 x1000/uL (130-400); RED BLOOD CELL COUNT 3.81 mill/uL (4.7-6.1); RED CELL DISTRIBUTION WIDTH 16.8 % (11.6-14.6)
[2019-08-25 08:00] VITALS: BP 134/90
[2019-08-25] MEDS: LOSARTAN POTASSIUM 25 MG TABLET PO SCH (10:37)
[2019-08-25] MEDS: ENOXAPARIN 40MG/0.4ML SYR SUBCUT SCH (10:37)
[2019-08-25] MEDS: CARVEDILOL 12.5MG TABLET PO SCH ×2 (10:38→21:03)
[2019-08-25 12:00] VITALS: BP 121/73
[2019-08-25 16:00] VITALS: BP 108/70
[2019-08-25 20:00] VITALS: BP 115/76
[2019-08-26] VITALS: BP 106/55
[2019-08-26 04:00] VITALS: BP 118/80
[2019-08-26] MEDS: FUROSEMIDE 40MG/4ML VIAL IVP SCH ×2 (06:19→17:29)
[2019-08-26 08:00] VITALS: BP 122/89
[2019-08-26] MEDS: CARVEDILOL 12.5MG TABLET PO SCH ×2 (08:20→21:18)
[2019-08-26] MEDS: LOSARTAN POTASSIUM 25 MG TABLET PO SCH (08:20)
[2019-08-26] MEDS: HYDROCODONE/ACETAMINOPHEN 10/325MG TABLET PO PRN ×2 (08:21→17:30)
[2019-08-26] MEDS: ENOXAPARIN 40MG/0.4ML SYR SUBCUT SCH (08:21)
[2019-08-26 12:00] VITALS: BP 131/86
[2019-08-26] MEDS: IPRATROPIUM/ALBUTEROL 0.5-3(2.5)MG/3ML NEB HHN PRN (12:58)
[2019-08-26 16:00] VITALS: BP 98/56
[2019-08-26 20:00] VITALS: BP 113/70
[2019-08-27] VITALS: BP 114/78
[2019-08-27] MEDS: DIPHENHYDRAMINE 50MG/ML VIAL IV PRN (02:27)
[2019-08-27] MEDS: FUROSEMIDE 40MG/4ML VIAL IVP SCH ×2 (06:24→18:10)
[2019-08-27] MEDS: HYDROCODONE/ACETAMINOPHEN 10/325MG TABLET PO PRN ×2 (06:38→14:50)
[2019-08-27 08:08] VITALS: BP 112/72
[2019-08-27] MEDS: CARVEDILOL 12.5MG TABLET PO SCH ×2 (08:33→21:07)
[2019-08-27] MEDS: LOSARTAN POTASSIUM 25 MG TABLET PO SCH (08:34)
[2019-08-27] MEDS: ENOXAPARIN 40MG/0.4ML SYR SUBCUT SCH (08:38)
[2019-08-27 12:00] VITALS: BP 130/95
[2019-08-27 16:00] VITALS: BP 118/82
[2019-08-27 20:00] VITALS: BP 103/59
[2019-08-28] VITALS: BP 111/50
[2019-08-28] MEDS: HYDROCODONE/ACETAMINOPHEN 10/325MG TABLET PO PRN ×4 (01:13→18:38)
[2019-08-28 04:00] VITALS: BP 111/71
[2019-08-28] MEDS: FUROSEMIDE 40MG/4ML VIAL IVP SCH ×2 (06:53→18:37)
[2019-08-28] MEDS: IPRATROPIUM/ALBUTEROL 0.5-3(2.5)MG/3ML NEB HHN PRN (08:02)
[2019-08-28 08:06] VITALS: BP 119/84
[2019-08-28] MEDS: ENOXAPARIN 40MG/0.4ML SYR SUBCUT SCH (09:12)
[2019-08-28] MEDS: LOSARTAN POTASSIUM 25 MG TABLET PO SCH (09:12)
[2019-08-28] MEDS: CARVEDILOL 12.5MG TABLET PO SCH ×2 (09:13→21:44)
[2019-08-28 12:06] VITALS: BP 110/52
[2019-08-28 16:04] VITALS: BP 106/70
[2019-08-28 20:00] VITALS: BP 136/82
[2019-08-28] MEDS: DIPHENHYDRAMINE 50MG/ML VIAL IV PRN (21:43)
[2019-08-29] VITALS: BP 137/77
[2019-08-29 04:00] VITALS: BP 112/70
[2019-08-29] MEDS: FUROSEMIDE 40MG/4ML VIAL IVP SCH (07:38)
[2019-08-29] MEDS: IPRATROPIUM/ALBUTEROL 0.5-3(2.5)MG/3ML NEB HHN PRN ×3 (09:26→17:28)
[2019-08-29] MEDS: LOSARTAN POTASSIUM 25 MG TABLET PO SCH (09:41)
[2019-08-29] MEDS: HYDROCODONE/ACETAMINOPHEN 10/325MG TABLET PO PRN ×2 (09:41→22:57)
[2019-08-29] MEDS: ENOXAPARIN 40MG/0.4ML SYR SUBCUT SCH (09:42)
[2019-08-29] MEDS: CARVEDILOL 12.5MG TABLET PO SCH ×2 (09:42→21:00)
[2019-08-29 12:15] VITALS: BP 95/54
[2019-08-29 16:00] VITALS: BP 106/69
[2019-08-29 20:00] VITALS: BP 108/61
[2019-08-29] MEDS: FUROSEMIDE 40MG TABLET PO SCH (20:58)
[2019-08-30] VITALS: BP 119/68
[2019-08-30 04:00] VITALS: BP 150/96
[2019-08-30] MEDS: HYDROCODONE/ACETAMINOPHEN 10/325MG TABLET PO PRN ×3 (04:49→21:17)
[2019-08-30 08:00] VITALS: BP 126/83
[2019-08-30] MEDS: DOCUSATE SODIUM 100MG CAPSULE PO SCH (09:00)
[2019-08-30] MEDS: FUROSEMIDE 40MG TABLET PO SCH ×2 (09:44→21:18)
[2019-08-30] MEDS: LOSARTAN POTASSIUM 25 MG TABLET PO SCH (09:44)
[2019-08-30] MEDS: ENOXAPARIN 40MG/0.4ML SYR SUBCUT SCH (09:45)
[2019-08-30] MEDS: CARVEDILOL 12.5MG TABLET PO SCH ×2 (09:46→21:18)
[2019-08-30 12:00] VITALS: BP 120/80
[2019-08-30 16:00] VITALS: BP 127/81
[2019-08-30 20:00] VITALS: BP 111/67
[2019-08-31] VITALS: BP 110/71
[2019-08-31 04:00] VITALS: BP 128/81
[2019-08-31] MEDS: HYDROCODONE/ACETAMINOPHEN 10/325MG TABLET PO PRN ×2 (05:41→16:24)
[2019-08-31 08:00] VITALS: BP 132/82
[2019-08-31] MEDS: ENOXAPARIN 30MG/0.3ML SYR SUBCUT SCH (09:11)
[2019-08-31] MEDS: FUROSEMIDE 40MG TABLET PO SCH ×2 (09:11→21:11)
[2019-08-31] MEDS: CARVEDILOL 12.5MG TABLET PO SCH ×2 (09:12→21:12)
[2019-08-31] MEDS: DOCUSATE SODIUM 100MG CAPSULE PO SCH (09:12)
[2019-08-31] MEDS: LOSARTAN POTASSIUM 25 MG TABLET PO SCH (09:12)
[2019-08-31 12:00] VITALS: BP 104/62
[2019-08-31 16:00] VITALS: BP 128/78
[2019-08-31 20:00] VITALS: BP 117/79
[2019-09-01] VITALS: BP 121/80
[2019-09-01 04:00] VITALS: BP 123/83
[2019-09-01] MEDS: HYDROCODONE/ACETAMINOPHEN 10/325MG TABLET PO PRN ×2 (04:09→21:00)
[2019-09-01 07:58] VITALS: BP 123/88
[2019-09-01] MEDS: DOCUSATE SODIUM 100MG CAPSULE PO SCH (08:00)
[2019-09-01] MEDS: ENOXAPARIN 30MG/0.3ML SYR SUBCUT SCH (08:01)
[2019-09-01] MEDS: CARVEDILOL 12.5MG TABLET PO SCH ×2 (08:02→21:00)
[2019-09-01] MEDS: LOSARTAN POTASSIUM 25 MG TABLET PO SCH (08:02)
[2019-09-01] MEDS: FUROSEMIDE 40MG TABLET PO SCH ×2 (08:02→21:00)
[2019-09-01 11:48] VITALS: BP 110/78
[2019-09-01 16:32] VITALS: BP 107/63
[2019-09-01 21:00] VITALS: BP 101/60
== END 2019-09-01 22:14 | disposition left against medical advice (07) | DRG 469 ==
LOC: ER 20:21 → 6WST 08-24 01:54 → EDBEDREQTM 08-24 02:04 → EDBEDREQ 08-24 02:04 → EDBEDREQDT 08-24 02:04 → ENRESERV 08-24 18:34
PROVIDERS: ADMIT Internal Medicine; ATTEND Internal Medicine
DX: N17.9 Acute kidney failure, unspecified (principal); G82.50 Quadriplegia, unspecified; I50.23 Acute on chronic systolic (congestive) heart failure; E43 Unspecified severe protein-calorie malnutrition; I13.0 Hypertensive heart and chronic kidney disease with heart failure and stage 1 through stage 4 chronic kidney disease, or unspecified chronic kidney disease; E87.8 Other disorders of electrolyte and fluid balance, not elsewhere classified; I27.20 Pulmonary hypertension, unspecified; I42.9 Cardiomyopathy, unspecified; E78.5 Hyperlipidemia, unspecified; F14.10 Cocaine abuse, uncomplicated; E11.22 Type 2 diabetes mellitus with diabetic chronic kidney disease; F17.210 Nicotine dependence, cigarettes, uncomplicated; I34.0 Nonrheumatic mitral (valve) insufficiency; J45.909 Unspecified asthma, uncomplicated; R07.9 Chest pain, unspecified; N18.9 Chronic kidney disease, unspecified; L97.919 Non-pressure chronic ulcer of unspecified part of right lower leg with unspecified severity; E11.622 Type 2 diabetes mellitus with other skin ulcer; D64.9 Anemia, unspecified; Z59.0 Homelessness; Z86.73 Personal history of transient ischemic attack (TIA), and cerebral infarction without residual deficits; Z82.49 Family history of ischemic heart disease and other diseases of the circulatory system; Z91.19 Patient's noncompliance with other medical treatment and regimen; Z99.3 Dependence on wheelchair; Z68.24 Body mass index [BMI] 24.0-24.9, adult; Z88.0 Allergy status to penicillin; Z71.51 Drug abuse counseling and surveillance of drug abuser
CPT/HCPCS: 36415; 71045; 80048; 80053; 80305; 80320; 83880; 84484; 85025; 93005; 94640; 96374; 97162; 99291; J1200; J1650; J1940; G0480

== ENCOUNTER 2019-10-11 21:45 | Inpatient (IN) | payer MEDICAID ==
[~2019-10-11] VITALS: Ht 167.6 cm; Wt 86.8 kg
[2019-10-11] MEDS ORDERED: ACETAMINOPHEN 325MG TABLET PO STA (22:54)
[2019-10-11] MEDS ORDERED: VANCOMYCIN 1 G PREMIX 200 ML IV ONE (23:00)
[2019-10-12 01:45] LABS: CHLORIDE 112 mEq/L (98-107)
[2019-10-12 01:53] LABS: BASOPHILS % 1.2 % (0.0-2.0); EOSINOPHILS % 2.1 % (0.0-5.0); HEMATOCRIT. 39.7 % (42.0-52.0); LYMPHOCYTES % 15.9 % (20.0-50.0); MEAN CORPUSCULAR HEMOGLOBIN 28.7 pg (28.0-32.0); MONOCYTES % 7.7 % (2.0-8.0); NEUTROPHILS % 73.1 % (40.0-76.0); PLATELET 297 x1000/uL (130-400); RED BLOOD CELL COUNT 4.52 mill/uL (4.7-6.1)
[2019-10-12 03:11] LABS: CLARITY URINE CLEAR (CLEAR); COLOR URINE YELLOW (YELLOW); KETONES URINE NEGATIVE (NEGATIVE); LEUKOCYTE ESTERASE URINE NEGATIVE (NEGATIVE); NITRITE URINE NEGATIVE (NEGATIVE); OCCULT BLOOD URINE TRACE (NEGATIVE); PROTEIN URINE 3+ (NEGATIVE); SPECIFIC GRAVITY URINE 1.019 (1.005-1.030)
[2019-10-12] MEDS ORDERED: DIPHENHYDRAMINE 50MG/ML VIAL IV PRN (11:30)
[2019-10-12] MEDS ORDERED: HYDRALAZINE 20MG/ML VIAL IV PRN (11:30)
[2019-10-12] MEDS ORDERED: CLONIDINE 0.1MG TABLET PO PRN (11:30)
[2019-10-12] MEDS ORDERED: MORPHINE SULFATE 2 MG/ML CPJ (NOT FOR IM USE) IV PRN (11:30)
[2019-10-12] MEDS ORDERED: MAGNESIUM/ALUMINUM HYDROXIDE/SIMETHICONE 30ML UDC PO PRN (11:30)
[2019-10-12] MEDS ORDERED: IPRATROPIUM/ALBUTEROL 0.5-3(2.5)MG/3ML NEB HHN PRN (11:30)
[2019-10-12] MEDS ORDERED: LORAZEPAM 2MG/ML CPJ IV PRN (11:30)
[2019-10-12] MEDS ORDERED: GUAIFENESIN 200MG/10ML SUGAR FREE UDC PO PRN (11:30)
[2019-10-12] MEDS ORDERED: ACETAMINOPHEN 325MG TABLET PO PRN (11:30)
[2019-10-12] MEDS ORDERED: HYDROCODONE/ACETAMINOPHEN 10/325MG TABLET PO PRN (11:30)
[2019-10-12] MEDS ORDERED: DOCUSATE SODIUM 100MG CAPSULE PO PRN (11:30)
[2019-10-12] MEDS ORDERED: ONDANSETRON HCL 4MG/2ML INJ IV PRN (11:30)
[2019-10-12 17:15] VITALS: BP 138/99
[2019-10-12 18:00] VITALS: BP 138/99
[2019-10-12] MEDS: FUROSEMIDE 40MG/4ML VIAL IVP SCH (18:58)
[2019-10-12 20:00] VITALS: BP 140/86
[2019-10-12 20:58] LABS: *AMPHETAMINES SCREEN URINE NEGATIVE (NEGATIVE); *BARBITURATES SCREEN URINE NEGATIVE (NEGATIVE); *BENZODIAZEPINES SCREEN URINE NEGATIVE (NEGATIVE); *COCAINE SCREEN URINE PRESUMTIVE POSITIVE (NEGATIVE); METHADONE URINE SCREEN NEGATIVE (NEGATIVE); OPIATES URINE SCREEN NEGATIVE (NEGATIVE); PHENCYCLIDINE URINE SCREEN NEGATIVE (NEGATIVE)
[2019-10-12 20:59] LABS: CANNABINOID URINE SCREEN NEGATIVE (NEGATIVE)
[2019-10-12] MEDS: ENOXAPARIN 40MG/0.4ML SYR SUBCUT SCH (21:07)
[2019-10-12] MEDS: SODIUM CHLORIDE 0.9% INJ 3ML FLUSH IVF SCH (21:53)
[2019-10-13] VITALS: BP 131/85
[2019-10-13 01:35] LABS: HEPATITIS B SURFACE ANTIGEN NEGATIVE
[2019-10-13 04:00] VITALS: BP 142/98
[2019-10-13] MEDS: SODIUM CHLORIDE 0.9% INJ 3ML FLUSH IVF SCH ×3 (06:00→21:06)
[2019-10-13 07:27] LABS: BASOPHILS % 1.4 % (0.0-2.0); EOSINOPHILS % 5.2 % (0.0-5.0); HEMATOCRIT. 35.5 % (42.0-52.0); HEMOGLOBIN. 11.8 g/dL (14.0-18.0); LYMPHOCYTES % 20.5 % (20.0-50.0); MEAN CORPUSCULAR HEMOGLOBIN 28.7 pg (28.0-32.0); MEAN CORPUSCULAR VOLUME 86.7 fL (80.0-94.0); MEAN PLATELET VOLUME 8.1 fl (7.4-10.4); MONOCYTES % 9.6 % (2.0-8.0); NEUTROPHILS % 63.3 % (40.0-76.0); PLATELET 284 x1000/uL (130-400); RED CELL DISTRIBUTION WIDTH 20.2 % (11.6-14.6)
[2019-10-13 07:38] LABS: CHLORIDE 108 mEq/L (98-107)
[2019-10-13 08:00] VITALS: BP 148/98
[2019-10-13] MEDS: FUROSEMIDE 40MG/4ML VIAL IVP SCH (09:04)
[2019-10-13 12:00] VITALS: BP 133/97
[2019-10-13 16:00] VITALS: BP 142/92
[2019-10-13] MEDS: AMLODIPINE 5MG TABLET PO SCH (16:30)
[2019-10-13 20:00] VITALS: BP 119/66
[2019-10-13] MEDS: ENOXAPARIN 40MG/0.4ML SYR SUBCUT SCH (21:06)
[2019-10-14] VITALS: BP 113/71
[2019-10-14 04:00] VITALS: BP 113/74
[2019-10-14] MEDS: SODIUM CHLORIDE 0.9% INJ 3ML FLUSH IVF SCH ×3 (05:33→21:32)
[2019-10-14 07:10] LABS: BASOPHILS % 1.9 % (0.0-2.0); EOSINOPHILS % 5.6 % (0.0-5.0); HEMATOCRIT. 36.2 % (42.0-52.0); HEMOGLOBIN. 11.9 g/dL (14.0-18.0); LYMPHOCYTES % 23.8 % (20.0-50.0); MEAN CORPUSCULAR HEMOGLOBIN 28.5 pg (28.0-32.0); MEAN CORPUSCULAR VOLUME 86.3 fL (80.0-94.0); MEAN PLATELET VOLUME 8.2 fl (7.4-10.4); MONOCYTES % 10.5 % (2.0-8.0); NEUTROPHILS % 58.2 % (40.0-76.0); PLATELET 278 x1000/uL (130-400); RED BLOOD CELL COUNT 4.19 mill/uL (4.7-6.1); RED CELL DISTRIBUTION WIDTH 19.8 % (11.6-14.6)
[2019-10-14 08:00] VITALS: BP 150/100
[2019-10-14] MEDS: FUROSEMIDE 40MG/4ML VIAL IVP SCH (09:04)
[2019-10-14] MEDS: AMLODIPINE 5MG TABLET PO SCH (09:04)
[2019-10-14 10:06] LABS: IMMUNOGLOBULIN A 342 mg/dL (90-386); IMMUNOGLOBULIN G 1052 mg/dL (603-1613); IMMUNOGLOBULIN M 40 mg/dL (20-172)
[2019-10-14 12:00] VITALS: BP 130/100
[2019-10-14 13:09] LABS: HIV SCREEN 4G Non Reactive (Non Reactive)
[2019-10-14 16:00] VITALS: BP 126/69
[2019-10-14 20:00] VITALS: BP 130/81
[2019-10-14] MEDS: CARVEDILOL 6.25 MG TABLET PO SCH (20:40)
[2019-10-14] MEDS: ENOXAPARIN 40MG/0.4ML SYR SUBCUT SCH (20:40)
[2019-10-15] VITALS: BP 124/81
[2019-10-15 04:00] VITALS: BP 133/90
[2019-10-15] MEDS: SODIUM CHLORIDE 0.9% INJ 3ML FLUSH IVF SCH ×2 (05:58→14:00)
[2019-10-15 06:54] LABS: HEMATOCRIT. 36.2 % (42.0-52.0); HEMOGLOBIN. 11.8 g/dL (14.0-18.0); LYMPHOCYTES % 23.4 % (20.0-50.0); MEAN CORPUSCULAR HEMOGLOBIN 28.3 pg (28.0-32.0); MEAN CORPUSCULAR VOLUME 86.7 fL (80.0-94.0); MEAN PLATELET VOLUME 8.1 fl (7.4-10.4); MONOCYTES % 12.2 % (2.0-8.0); NEUTROPHILS % 56.4 % (40.0-76.0); PLATELET 258 x1000/uL (130-400); RED BLOOD CELL COUNT 4.18 mill/uL (4.7-6.1); RED CELL DISTRIBUTION WIDTH 19.9 % (11.6-14.6)
[2019-10-15 07:09] LABS: *CREATININE RANDOM URINE 13.7 mg/dL (Not Estab.); MICROALBUMIN RANDOM URINE 82.6 ug/mL (Not Estab.)
[2019-10-15 08:00] VITALS: BP 137/95
[2019-10-15] MEDS: FUROSEMIDE 40MG/4ML VIAL IVP SCH (09:02)
[2019-10-15] MEDS: AMLODIPINE 5MG TABLET PO SCH (09:03)
[2019-10-15] MEDS: CARVEDILOL 6.25 MG TABLET PO SCH (09:03)
[2019-10-15 12:00] VITALS: BP 130/80
[2019-10-15 13:06] LABS: A/G RATIO 0.9 (0.7-1.7); ALBUMIN 2.6 g/dL (2.9-4.4); ALPHA-1-GLOBULIN 0.2 g/dL (0.0-0.4); ALPHA-2-GLOBULIN 0.6 g/dL (0.4-1.0); BETA GLOBULIN 1.1 g/dL (0.7-1.3); GLOBULIN TOTAL 2.9 g/dL (2.2-3.9); M-SPIKE Not Observed g/dL (Not Observed); TOTAL PROTEIN SERUM 5.5 g/dL (6.0-8.5)
[2019-10-15 14:07] VITALS: BP 120/78
[2019-10-16] MEDS ORDERED: AMLODIPINE 10MG TABLET PO SCH (09:00)
[2019-10-16 17:06] LABS: ANTI-DNA DOUBLE STRANDED QUANT 2 IU/mL (0-9); ANTI-NUCLEAR ANTIBODIES DIRECT Negative (Negative)
[2019-10-17 10:08] LABS: ANTI-CARDIOLIPIN AB IGA < 9 APL U/mL (0-11); ANTI-CARDIOLIPIN AB IGG < 9 GPL U/mL (0-14); ANTI-CARDIOLIPIN AB IGM < 9 MPL U/mL (0-12); ANTI-PROTEINASE 3 ABS < 3.5 U/mL (0.0-3.5)
[2019-10-17 13:10] LABS: ANTI-MYELOPEROXIDASE AB < 9.0 U/mL (0.0-9.0)
[2019-10-18 13:10] LABS: ATYPICAL P-ANCA <1:20 titer (Neg:<1:20); CYTOPLASMIC C-ANCA <1:20 titer (Neg:<1:20); PERINUCLEAR P-ANCA <1:20 titer (Neg:<1:20)
== END 2019-10-15 14:37 | disposition home or self-care (01) | DRG 194 ==
LOC: ER 21:49 → EDBEDREQSVC 10-12 04:35 → 5WST 10-12 04:57 → EDBEDREQ 10-12 04:58 → EDBEDREQTM 10-12 05:14 → EDBEDREQ 10-12 05:14 → EDBEDREQSVC 10-12 05:14 → EDBEDREQDT 10-12 05:14 → EDBEDREQSVC 10-12 05:15 → CANRESERV 10-12 10:05 → ENRESERV 10-12 10:05 → EDBEDREQSVC 10-12 11:19 → ENRESERV 10-12 15:40 → EDBEDREQ 10-12 15:41
PROVIDERS: ADMIT Internal Medicine; ATTEND Internal Medicine
DX: I13.0 Hypertensive heart and chronic kidney disease with heart failure and stage 1 through stage 4 chronic kidney disease, or unspecified chronic kidney disease (principal); G82.50 Quadriplegia, unspecified; E11.22 Type 2 diabetes mellitus with diabetic chronic kidney disease; N17.9 Acute kidney failure, unspecified; E46 Unspecified protein-calorie malnutrition; L03.115 Cellulitis of right lower limb; E11.622 Type 2 diabetes mellitus with other skin ulcer; E87.5 Hyperkalemia; N18.4 Chronic kidney disease, stage 4 (severe); I27.20 Pulmonary hypertension, unspecified; I50.23 Acute on chronic systolic (congestive) heart failure; J44.9 Chronic obstructive pulmonary disease, unspecified; D64.9 Anemia, unspecified; E78.5 Hyperlipidemia, unspecified; I42.8 Other cardiomyopathies; I34.0 Nonrheumatic mitral (valve) insufficiency; F14.10 Cocaine abuse, uncomplicated; L97.919 Non-pressure chronic ulcer of unspecified part of right lower leg with unspecified severity; Z87.891 Personal history of nicotine dependence; Z59.0 Homelessness; Z91.19 Patient's noncompliance with other medical treatment and regimen; Z99.3 Dependence on wheelchair; Z88.0 Allergy status to penicillin; Z79.82 Long term (current) use of aspirin; Z79.84 Long term (current) use of oral hypoglycemic drugs; Z68.30 Body mass index [BMI] 30.0-30.9, adult; I25.2 Old myocardial infarction; Z71.51 Drug abuse counseling and surveillance of drug abuser
CPT/HCPCS: 36415; 71045; 76770; 80048; 80053; 80305; 81003; 82043; 82550; 82553; 82570; 82784; 83036; 83520; 83605; 83735; 84100; 84145; 84155; 84156; 84165; 84300; 84484; 85025; 86038; 86147; 86160; 86225; 86256; 86334; 86803; 87340; 87389; 93005; 93970; 96365; 96375; 99285; J1650; J1940; J3370

== ENCOUNTER 2019-10-29 05:34 | Emergency (ER) | payer MEDICAID ==
[~2019-10-29] VITALS: Ht 188 cm; Wt 90.0 kg
[2019-10-29 06:47] LABS: BASOPHILS % 1.2 % (0.0-2.0); EOSINOPHILS % 3.6 % (0.0-5.0); HEMATOCRIT. 31.5 % (42.0-52.0); HEMOGLOBIN. 10.5 g/dL (14.0-18.0); LYMPHOCYTES % 14.8 % (20.0-50.0); MEAN CORPUSCULAR HEMOGLOBIN 29.1 pg (28.0-32.0); MEAN CORPUSCULAR VOLUME 87.7 fL (80.0-94.0); MEAN PLATELET VOLUME 7.5 fl (7.4-10.4); MONOCYTES % 6.5 % (2.0-8.0); NEUTROPHILS % 73.9 % (40.0-76.0); PLATELET 251 x1000/uL (130-400); RED BLOOD CELL COUNT 3.59 mill/uL (4.7-6.1); RED CELL DISTRIBUTION WIDTH 19.5 % (11.6-14.6)
[2019-10-29 06:48] LABS: CHLORIDE 113 mEq/L (98-107)
[2019-10-29 06:52] LABS: ETHANOL BLOOD < 10 mg/dL
[2019-10-29 07:22] LABS: CLARITY URINE CLEAR (CLEAR); COLOR URINE YELLOW (YELLOW); KETONES URINE NEGATIVE (NEGATIVE); LEUKOCYTE ESTERASE URINE NEGATIVE (NEGATIVE); NITRITE URINE NEGATIVE (NEGATIVE); OCCULT BLOOD URINE TRACE (NEGATIVE); PROTEIN URINE 2+ (NEGATIVE); SPECIFIC GRAVITY URINE 1.016 (1.005-1.030); UROBILINOGEN URINE 0.2 E.U./dL (0.2-1.0)
[2019-10-29 07:33] LABS: *COCAINE SCREEN URINE PRESUMTIVE POSITIVE (NEGATIVE); METHADONE URINE SCREEN NEGATIVE (NEGATIVE); OPIATES URINE SCREEN NEGATIVE (NEGATIVE)
[2019-10-29 07:34] LABS: *AMPHETAMINES SCREEN URINE NEGATIVE (NEGATIVE); *BARBITURATES SCREEN URINE NEGATIVE (NEGATIVE); *BENZODIAZEPINES SCREEN URINE NEGATIVE (NEGATIVE); CANNABINOID URINE SCREEN NEGATIVE (NEGATIVE); PHENCYCLIDINE URINE SCREEN NEGATIVE (NEGATIVE)
[2019-10-30] MEDS ORDERED: ACETAMINOPHEN 325MG TABLET PO ONE (06:30)
[2019-10-30 06:32] VITALS: BP 147/89
== END 2019-10-30 10:08 | disposition home or self-care (01) ==
LOC: ER 05:34
DX: F14.188 Cocaine abuse with other cocaine-induced disorder (principal); S81.812A Laceration without foreign body, left lower leg, initial encounter; S91.312A Laceration without foreign body, left foot, initial encounter; X58.XXXA Exposure to other specified factors, initial encounter; Y93.89 Activity, other specified; Y92.89 Other specified places as the place of occurrence of the external cause; F17.210 Nicotine dependence, cigarettes, uncomplicated; Z71.6 Tobacco abuse counseling
CPT/HCPCS: 36415; 80053; 80305; 80320; 81003; 82962; 85025; 99285; 99406; G0480

== ENCOUNTER 2019-11-12 18:47 | Inpatient (IN) | payer MEDICAID ==
[~2019-11-12] VITALS: Ht 185.4 cm; Wt 90.0 kg
[2019-11-12] MEDS ORDERED: ASPIRIN 81MG TABLET PO ONE (19:30)
[2019-11-12] MEDS ORDERED: NITROGLYCERIN 0.4MG TABLET SL SL PRN (19:30)
[2019-11-12 20:58] LABS: BASOPHILS % 1.3 % (0.0-2.0); EOSINOPHILS % 3.7 % (0.0-5.0); HEMATOCRIT. 32.1 % (42.0-52.0); HEMOGLOBIN. 10.3 g/dL (14.0-18.0); LYMPHOCYTES % 12.8 % (20.0-50.0); MEAN CORPUSCULAR HEMOGLOBIN 28.2 pg (28.0-32.0); MEAN CORPUSCULAR VOLUME 88.2 fL (80.0-94.0); MEAN PLATELET VOLUME 7.6 fl (7.4-10.4); MONOCYTES % 7.6 % (2.0-8.0); NEUTROPHILS % 74.6 % (40.0-76.0); PLATELET 262 x1000/uL (130-400); RED BLOOD CELL COUNT 3.64 mill/uL (4.7-6.1); RED CELL DISTRIBUTION WIDTH 18.5 % (11.6-14.6)
[2019-11-12 21:04] LABS: CHLORIDE 111 mEq/L (98-107)
[2019-11-12 21:07] LABS: *AMPHETAMINES SCREEN URINE NEGATIVE (NEGATIVE); *BARBITURATES SCREEN URINE NEGATIVE (NEGATIVE); *BENZODIAZEPINES SCREEN URINE NEGATIVE (NEGATIVE)
[2019-11-12 21:07] LABS: ETHANOL BLOOD < 10 mg/dL
[2019-11-12 21:08] LABS: *COCAINE SCREEN URINE PRESUMTIVE POSITIVE (NEGATIVE); CANNABINOID URINE SCREEN NEGATIVE (NEGATIVE); METHADONE URINE SCREEN NEGATIVE (NEGATIVE); OPIATES URINE SCREEN NEGATIVE (NEGATIVE); PHENCYCLIDINE URINE SCREEN NEGATIVE (NEGATIVE)
[2019-11-12] MEDS ORDERED: LORAZEPAM 1MG TABLET PO ONE (21:45)
[2019-11-12] MEDS ORDERED: ENOXAPARIN 120MG/0.8ML SYR SUBCUT ONE (21:45)
[2019-11-13] MEDS: IPRATROPIUM/ALBUTEROL 0.5-3(2.5)MG/3ML NEB HHN PRN ×2 (02:06→05:58)
[2019-11-13] MEDS: LORAZEPAM 2MG/ML CPJ IV PRN ×3 (02:11→20:23)
[2019-11-13] MEDS ORDERED: ACETAMINOPHEN 325MG TABLET PO PRN (09:45)
[2019-11-13] MEDS ORDERED: LOSARTAN POTASSIUM 50 MG TABLET PO SCH (09:45)
[2019-11-13] MEDS ORDERED: ONDANSETRON HCL 4MG/2ML INJ IV PRN (09:45)
[2019-11-13 10:11] VITALS: BP 170/99
[2019-11-13] MEDS: ENOXAPARIN 30MG/0.3ML SYR SUBCUT SCH ×2 (11:08→20:23)
[2019-11-13] MEDS: ASPIRIN 81MG TABLET PO SCH (11:08)
[2019-11-13] MEDS ORDERED: CLONIDINE 0.1MG TABLET PO PRN (12:00)
[2019-11-13 12:04] LABS: BG BASE EXCESS -4.6 mmol/L (-2.0-2.0); BG CARBOXYHEMOGLOBIN 0.6 % (0.5-1.5); BG HCO3 ACT 18.5 mmol/L (22.0-26.0); BG METHEMOGLOBIN 0.2 % (0.0-1.5); BG OXYGEN SATURATION 91.9 % (92.0-98.5); BG OXYHEMOGLOBIN 91.2 % (94.0-97.0); BG PCO2 28.7 mmHg (35.0-45.0); BG PH 7.428 (7.350-7.450); BG PO2 64.5 mmHg (75.0-100.0); BG SAMPLE SITE RIGHT RADIAL; BG TOTAL HEMOGLOBIN 12.1 g/dL (12.0-18.0); BG VENT MODE MASK - NRB
[2019-11-13] MEDS ORDERED: HYDRALAZINE 20MG/ML VIAL IV SCH (12:15)
[2019-11-13] MEDS: FUROSEMIDE 40MG/4ML VIAL IVP SCH ×2 (12:44→18:07)
[2019-11-13] MEDS: AMLODIPINE 5MG TABLET PO SCH ×2 (13:00→20:23)
[2019-11-13 14:00] VITALS: BP 160/95
[2019-11-13] MEDS ORDERED: HYDRALAZINE 20MG/ML VIAL IV PRN (15:00)
[2019-11-13 16:00] VITALS: BP 155/90
[2019-11-13 18:00] VITALS: BP 165/95
[2019-11-13] MEDS: NITROGLYCERIN OINT 1GM/INCH UDPKT TD SCH ×2 (18:07→20:22)
[2019-11-13] MEDS: CLONIDINE 0.1MG TABLET PO SCH (18:08)
[2019-11-13 20:00] VITALS: BP 134/102
[2019-11-13] MEDS: LOSARTAN POTASSIUM 50 MG TABLET PO SCH (20:23)
[2019-11-13 21:55] VITALS: BP 147/100
[2019-11-14] VITALS (12 sets, daily range): BP systolic 123–155; BP diastolic 64–107
[2019-11-14] MEDS: CLONIDINE 0.1MG TABLET PO SCH (01:05)
[2019-11-14] MEDS: NITROGLYCERIN OINT 1GM/INCH UDPKT TD SCH ×7 (01:05→23:54)
[2019-11-14] MEDS: FUROSEMIDE 40MG/4ML VIAL IVP SCH (08:51)
[2019-11-14] MEDS: LOSARTAN POTASSIUM 50 MG TABLET PO SCH ×2 (08:52→20:55)
[2019-11-14] MEDS: AMLODIPINE 5MG TABLET PO SCH ×2 (08:52→20:56)
[2019-11-14] MEDS: ENOXAPARIN 30MG/0.3ML SYR SUBCUT SCH ×2 (08:52→20:55)
[2019-11-14] MEDS: ASPIRIN 81MG TABLET PO SCH (08:52)
[2019-11-14] MEDS: LORAZEPAM 2MG/ML CPJ IV PRN (17:36)
[2019-11-14] MEDS: CLONIDINE 0.2MG TABLET PO SCH (17:36)
[2019-11-14] MEDS: FUROSEMIDE 100MG/10ML VIAL IVP SCH (17:36)
[2019-11-14] MEDS: HYDRALAZINE HCL 50MG TABLET PO SCH (20:55)
[2019-11-15] VITALS (12 sets, daily range): BP systolic 101–136; BP diastolic 55–96
[2019-11-15] MEDS: CLONIDINE 0.2MG TABLET PO SCH ×3 (01:25→16:48)
[2019-11-15] MEDS: NITROGLYCERIN OINT 1GM/INCH UDPKT TD SCH ×5 (04:55→21:26)
[2019-11-15 06:49] LABS: BASOPHILS % 0.8 % (0.0-2.0); EOSINOPHILS % 5.7 % (0.0-5.0); HEMOGLOBIN. 11.6 g/dL (14.0-18.0); LYMPHOCYTES % 13.8 % (20.0-50.0); MEAN CORPUSCULAR HEMOGLOBIN 28.2 pg (28.0-32.0); MEAN CORPUSCULAR VOLUME 87.3 fL (80.0-94.0); MEAN PLATELET VOLUME 7.6 fl (7.4-10.4); MONOCYTES % 11.1 % (2.0-8.0); NEUTROPHILS % 68.6 % (40.0-76.0); PLATELET 291 x1000/uL (130-400); RED BLOOD CELL COUNT 4.13 mill/uL (4.7-6.1); RED CELL DISTRIBUTION WIDTH 17.9 % (11.6-14.6)
[2019-11-15] MEDS: FUROSEMIDE 100MG/10ML VIAL IVP SCH ×2 (08:44→16:47)
[2019-11-15] MEDS: AMLODIPINE 5MG TABLET PO SCH ×2 (08:45→21:25)
[2019-11-15] MEDS: LOSARTAN POTASSIUM 50 MG TABLET PO SCH ×2 (08:45→21:42)
[2019-11-15] MEDS: ASPIRIN 81MG TABLET PO SCH (08:45)
[2019-11-15] MEDS: HYDRALAZINE HCL 50MG TABLET PO SCH ×2 (08:45→21:25)
[2019-11-15] MEDS: ENOXAPARIN 30MG/0.3ML SYR SUBCUT SCH ×2 (08:46→21:58)
[2019-11-15] MEDS ORDERED: CLON0.1T MT (11:24)
[2019-11-15] MEDS ORDERED: AMLO5TAB88 PO (11:24)
[2019-11-15] MEDS ORDERED: FURO-151 MT (11:24)
[2019-11-15] MEDS ORDERED: HYDR100T26 MT (11:24)
[2019-11-15] MEDS ORDERED: LOSA50TA3 PO (11:24)
[2019-11-15] MEDS ORDERED: ALBU18HF2 IH (11:24)
[2019-11-15] MEDS ORDERED: CARV25TA47 MT (11:24)
[2019-11-16] VITALS (9 sets, daily range): BP systolic 92–137; BP diastolic 53–74
[2019-11-16] MEDS: NITROGLYCERIN OINT 1GM/INCH UDPKT TD SCH ×4 (00:54→12:00)
[2019-11-16] MEDS: CLONIDINE 0.2MG TABLET PO SCH ×2 (02:56→10:02)
[2019-11-16] MEDS: FUROSEMIDE 100MG/10ML VIAL IVP SCH (08:27)
[2019-11-16] MEDS: AMLODIPINE 5MG TABLET PO SCH (09:43)
[2019-11-16] MEDS: ENOXAPARIN 30MG/0.3ML SYR SUBCUT SCH (09:43)
[2019-11-16] MEDS: ASPIRIN 81MG TABLET PO SCH (09:43)
[2019-11-16] MEDS: HYDRALAZINE HCL 50MG TABLET PO SCH (09:44)
[2019-11-16] MEDS: LOSARTAN POTASSIUM 50 MG TABLET PO SCH (10:00)
[2019-11-16] MEDS ORDERED: SODIUM CHLORIDE 0.9% 250 ML IV ONE (13:30)
[2019-11-16] MEDS ORDERED: FUROSEMIDE 40MG TABLET PO SCH (17:15)
== END 2019-11-16 17:45 | disposition home or self-care (01) | DRG 816 ==
LOC: ER 18:47 → 3WST 22:39 → EDBEDREQ 22:41 → ENRESERV 11-13 08:21
PROVIDERS: ADMIT Internal Medicine; ATTEND Internal Medicine
DX: T40.5X1A Poisoning by cocaine, accidental (unintentional), initial encounter (principal); J96.91 Respiratory failure, unspecified with hypoxia; E43 Unspecified severe protein-calorie malnutrition; I50.23 Acute on chronic systolic (congestive) heart failure; E87.8 Other disorders of electrolyte and fluid balance, not elsewhere classified; G82.20 Paraplegia, unspecified; I27.20 Pulmonary hypertension, unspecified; I13.0 Hypertensive heart and chronic kidney disease with heart failure and stage 1 through stage 4 chronic kidney disease, or unspecified chronic kidney disease; I42.0 Dilated cardiomyopathy; N17.9 Acute kidney failure, unspecified; N18.3 Chronic kidney disease, stage 3 (moderate); I16.0 Hypertensive urgency; F14.90 Cocaine use, unspecified, uncomplicated; F17.210 Nicotine dependence, cigarettes, uncomplicated; I34.0 Nonrheumatic mitral (valve) insufficiency; D63.1 Anemia in chronic kidney disease; E78.5 Hyperlipidemia, unspecified; E87.5 Hyperkalemia; I73.9 Peripheral vascular disease, unspecified; J45.909 Unspecified asthma, uncomplicated; N18.9 Chronic kidney disease, unspecified; Z59.0 Homelessness; Z79.899 Other long term (current) drug therapy; Z86.73 Personal history of transient ischemic attack (TIA), and cerebral infarction without residual deficits; Z99.3 Dependence on wheelchair; Z91.19 Patient's noncompliance with other medical treatment and regimen; Z76.5 Malingerer [conscious simulation]; Z88.0 Allergy status to penicillin; Z79.82 Long term (current) use of aspirin; Z68.26 Body mass index [BMI] 26.0-26.9, adult; Y92.89 Other specified places as the place of occurrence of the external cause
CPT/HCPCS: 36415; 36600; 71045; 80048; 80053; 80305; 80320; 82375; 82805; 83880; 84484; 85025; 93005; 94640; 97162; 97530; 99291; J0360; J1650; J1940; J2060; G0480

== ENCOUNTER 2020-11-09 16:52 | Inpatient (IN) | payer MEDICAID ==
[~2020-11-09] VITALS: Ht 182.9 cm; Wt 91.3 kg
[~2020-11-09 16:52] MED LIST changes: +ALBU18HF2 IH; -ASPI-1158 PO; +ASPI-1406 PO; +FURO-151 MT; -FURO-151 PO
[2020-11-09 18:31] LABS: CLARITY URINE CLEAR (CLEAR); COLOR URINE DARK YELLOW (YELLOW); KETONES URINE NEGATIVE (NEGATIVE); LEUKOCYTE ESTERASE URINE 1+ (NEGATIVE); NITRITE URINE NEGATIVE (NEGATIVE); OCCULT BLOOD URINE NEGATIVE (NEGATIVE); PH URINE 5.5 (4.5-8.0); PROTEIN URINE 2+ (NEGATIVE); SPECIFIC GRAVITY URINE 1.015 (1.005-1.030)
[2020-11-09 18:38] LABS: CHLORIDE 103 mEq/L (98-107)
[2020-11-09 18:40] LABS: BASOPHILS % 1.1 % (0.0-2.0); EOSINOPHILS % 0.2 % (0.0-5.0); HEMATOCRIT. 37.7 % (42.0-52.0); LYMPHOCYTES % 11.7 % (20.0-50.0); MEAN CORPUSCULAR HEMOGLOBIN 26.9 pg (28.0-32.0); MEAN CORPUSCULAR VOLUME 84.5 fL (80.0-94.0); MEAN PLATELET VOLUME 9.5 fl (7.4-10.4); MONOCYTES % 11.2 % (2.0-8.0); NEUTROPHILS % 75.8 % (40.0-76.0); PLATELET 200 x1000/uL (130-400); RED BLOOD CELL COUNT 4.46 mill/uL (4.7-6.1); RED CELL DISTRIBUTION WIDTH 19.5 % (11.6-14.6)
[2020-11-09 18:43] LABS: CANNABINOID URINE SCREEN NEGATIVE (NEGATIVE)
[2020-11-09 18:44] LABS: *AMPHETAMINES SCREEN URINE NEGATIVE (NEGATIVE); *BARBITURATES SCREEN URINE NEGATIVE (NEGATIVE); *BENZODIAZEPINES SCREEN URINE NEGATIVE (NEGATIVE); *COCAINE SCREEN URINE PRESUMTIVE POSITIVE (NEGATIVE); METHADONE URINE SCREEN NEGATIVE (NEGATIVE); OPIATES URINE SCREEN PRESUMTIVE POSITIVE (NEGATIVE)
[2020-11-09 18:45] LABS: PHENCYCLIDINE URINE SCREEN NEGATIVE (NEGATIVE)
[2020-11-09] MEDS ORDERED: DEXTROSE 50% WATER 50ML SYRINGE IV NR (19:00)
[2020-11-09] MEDS ORDERED: INSULIN REGULAR (HUMULIN R) 300UNITS/3ML VIAL IV NR (19:00)
[2020-11-09] MEDS ORDERED: ALBUTEROL (0.083%) 2.5MG/3ML NEB HHN NR (19:00)
[2020-11-09] MEDS ORDERED: CALCIUM GLUCONATE 100MG/ML 10ML VIAL IV NR (19:00)
[2020-11-09] MEDS ORDERED: FUROSEMIDE 40MG/4ML VIAL IVP NR (20:30)
[2020-11-09] MEDS ORDERED: SODIUM POLYSTYRENE SULFONATE 15 G/60 ML BOT PO NR (21:30)
[2020-11-10 08:00] VITALS: BP 145/102
[2020-11-10 09:00] VITALS: BP 145/102
[2020-11-10] MEDS ORDERED: NITROGLYCERIN OINT 1GM/INCH UDPKT TD PRN ×2 (10:15→10:30)
[2020-11-10] MEDS ORDERED: DOCUSATE SODIUM 100MG CAPSULE PO PRN (10:30)
[2020-11-10] MEDS ORDERED: ACETAMINOPHEN 325MG TABLET PO PRN (10:30)
[2020-11-10] MEDS ORDERED: IPRATROPIUM/ALBUTEROL 0.5-3(2.5)MG/3ML NEB NEB PRN (10:30)
[2020-11-10] MEDS ORDERED: CLONIDINE 0.1MG TABLET PO PRN (10:30)
[2020-11-10] MEDS ORDERED: MAGNESIUM/ALUMINUM HYDROXIDE/SIMETHICONE 30ML UDC PO PRN (10:30)
[2020-11-10] MEDS ORDERED: ENOXAPARIN 40MG/0.4ML SYR SUBCUT SCH (10:30)
[2020-11-10] MEDS ORDERED: SODIUM POLYSTYRENE SULFONATE 15 G/60 ML BOT PO NR (11:30)
[2020-11-10 12:00] VITALS: BP 118/75
[2020-11-10] MEDS: OMEPRAZOLE 20MG CAPSULE EXTENDED RELEASE PO SCH (13:05)
[2020-11-10] MEDS: ENOXAPARIN 30MG/0.3ML SYR SUBCUT SCH (13:05)
[2020-11-10 13:11] VITALS: BP 131/86
[2020-11-10 15:59] LABS: HEMATOCRIT 33.4 % (42.0-52.0); HEMOGLOBIN 10.6 g/dL (14.0-18.0); MEAN CORPUSCULAR HEMOGLOBIN 26.8 pg (28.0-32.0); MEAN CORPUSCULAR VOLUME 84.1 fL (80.0-94.0); PLATELET 229 x1000/uL (130-400); RED BLOOD CELL COUNT 3.97 mill/uL (4.7-6.1); RED CELL DISTRIBUTION WIDTH 20.1 % (11.6-14.6)
[2020-11-10 16:00] VITALS: BP 133/95
[2020-11-10 16:28] LABS: PHOSPHORUS 5.2 mg/dL (2.5-4.9)
[2020-11-10 20:00] VITALS: BP 139/90
[2020-11-10] MEDS: METOPROLOL TARTRATE 50MG TABLET PO SCH (21:44)
[2020-11-10] MEDS: HYDROCODONE/ACETAMINOPHEN 5/325MG TABLET PO PRN (22:40)
[2020-11-11] VITALS: BP 121/87
[2020-11-11] MEDS: HYDROCODONE/ACETAMINOPHEN 5/325MG TABLET PO PRN ×2 (03:10→20:47)
[2020-11-11 04:00] VITALS: BP 116/71
[2020-11-11] MEDS: OMEPRAZOLE 20MG CAPSULE EXTENDED RELEASE PO SCH (05:49)
[2020-11-11 06:33] LABS: EOSINOPHILS % 1.9 % (0.0-5.0); HEMATOCRIT. 34.2 % (42.0-52.0); HEMOGLOBIN. 10.8 g/dL (14.0-18.0); LYMPHOCYTES % 20.6 % (20.0-50.0); MEAN CORPUSCULAR HEMOGLOBIN 26.6 pg (28.0-32.0); MEAN PLATELET VOLUME 9.2 fl (7.4-10.4); MONOCYTES % 11.6 % (2.0-8.0); NEUTROPHILS % 64.9 % (40.0-76.0); PLATELET 233 x1000/uL (130-400); RED BLOOD CELL COUNT 4.08 mill/uL (4.7-6.1); RED CELL DISTRIBUTION WIDTH 19.9 % (11.6-14.6)
[2020-11-11 06:47] LABS: PHOSPHORUS 4.3 mg/dL (2.5-4.9)
[2020-11-11 08:00] VITALS: BP 123/94
[2020-11-11] MEDS ORDERED: SODIUM POLYSTYRENE SULFONATE 15 G/60 ML BOT PO NR ×2 (09:15→10:30)
[2020-11-11] MEDS: METOPROLOL TARTRATE 50MG TABLET PO SCH ×2 (09:34→20:46)
[2020-11-11] MEDS: ASPIRIN 81MG TABLET PO SCH (09:34)
[2020-11-11] MEDS: ENOXAPARIN 30MG/0.3ML SYR SUBCUT SCH (09:34)
[2020-11-11] MEDS: FOLIC ACID/VITAMIN B COMP W-C TABLET PO SCH (09:35)
[2020-11-11 12:00] VITALS: BP 122/80
[2020-11-11 16:00] VITALS: BP 122/90
[2020-11-11 20:00] VITALS: BP 116/46
[2020-11-11] MEDS: ONDANSETRON HCL 4MG/2ML INJ IV PRN (20:48)
[2020-11-12] VITALS: BP 116/46
[2020-11-12] MEDS: ONDANSETRON HCL 4MG/2ML INJ IV PRN (02:45)
[2020-11-12] MEDS: ZOLPIDEM TARTRATE 5MG TABLET PO PRN (02:45)
[2020-11-12 04:00] VITALS: BP 110/85
[2020-11-12] MEDS: OMEPRAZOLE 20MG CAPSULE EXTENDED RELEASE PO SCH (06:24)
[2020-11-12 06:59] LABS: BASOPHILS % 0.8 % (0.0-2.0); HEMATOCRIT. 34.3 % (42.0-52.0); HEMOGLOBIN. 10.9 g/dL (14.0-18.0); LYMPHOCYTES % 14.9 % (20.0-50.0); MEAN CORPUSCULAR HEMOGLOBIN 26.4 pg (28.0-32.0); MEAN CORPUSCULAR VOLUME 83.3 fL (80.0-94.0); MONOCYTES % 12.1 % (2.0-8.0); NEUTROPHILS % 70.2 % (40.0-76.0); PLATELET 229 x1000/uL (130-400); RED BLOOD CELL COUNT 4.11 mill/uL (4.7-6.1); RED CELL DISTRIBUTION WIDTH 20.1 % (11.6-14.6)
[2020-11-12 08:00] VITALS: BP 125/71
[2020-11-12] MEDS: ASPIRIN 81MG TABLET PO SCH (09:19)
[2020-11-12] MEDS: ENOXAPARIN 30MG/0.3ML SYR SUBCUT SCH (09:19)
[2020-11-12] MEDS: METOPROLOL TARTRATE 50MG TABLET PO SCH ×2 (09:19→21:42)
[2020-11-12] MEDS: FOLIC ACID/VITAMIN B COMP W-C TABLET PO SCH (09:19)
[2020-11-12] MEDS: LEVOTHYROXINE SODIUM 25MCG TABLET PO SCH (09:19)
[2020-11-12] MEDS ORDERED: FUROSEMIDE 40MG/4ML VIAL IVP SCH (09:30)
[2020-11-12 12:00] VITALS: BP 113/85
[2020-11-12 16:00] VITALS: BP 113/85
[2020-11-12 20:00] VITALS: BP 122/95
[2020-11-12] MEDS: HYDROCODONE/ACETAMINOPHEN 5/325MG TABLET PO PRN (21:45)
[2020-11-13] VITALS: BP 90/63
[2020-11-13 04:00] VITALS: BP 112/87
[2020-11-13] MEDS: LEVOTHYROXINE SODIUM 25MCG TABLET PO SCH (06:20)
[2020-11-13] MEDS: OMEPRAZOLE 20MG CAPSULE EXTENDED RELEASE PO SCH (06:20)
[2020-11-13 06:23] LABS: BASOPHILS % 1.5 % (0.0-2.0); EOSINOPHILS % 2.3 % (0.0-5.0); HEMATOCRIT. 33.4 % (42.0-52.0); HEMOGLOBIN. 10.8 g/dL (14.0-18.0); LYMPHOCYTES % 20.8 % (20.0-50.0); MEAN CORPUSCULAR HEMOGLOBIN 26.9 pg (28.0-32.0); MEAN CORPUSCULAR VOLUME 83.1 fL (80.0-94.0); MONOCYTES % 12.9 % (2.0-8.0); NEUTROPHILS % 62.5 % (40.0-76.0); PLATELET 251 x1000/uL (130-400); RED BLOOD CELL COUNT 4.02 mill/uL (4.7-6.1); RED CELL DISTRIBUTION WIDTH 19.9 % (11.6-14.6)
[2020-11-13 08:00] VITALS: BP 109/82
[2020-11-13] MEDS: ASPIRIN 81MG TABLET PO SCH (08:39)
[2020-11-13] MEDS: FOLIC ACID/VITAMIN B COMP W-C TABLET PO SCH (08:39)
[2020-11-13] MEDS: METOPROLOL TARTRATE 50MG TABLET PO SCH ×2 (08:40→20:47)
[2020-11-13] MEDS ORDERED: ENOXAPARIN 40MG/0.4ML SYR SUBCUT SCH (09:00)
[2020-11-13] MEDS: FUROSEMIDE 40MG TABLET PO SCH (10:41)
[2020-11-13 12:00] VITALS: BP 122/92
[2020-11-13 14:00] VITALS: BP 122/72
[2020-11-13 20:00] VITALS: BP 125/99
[2020-11-14] VITALS: BP 101/80
[2020-11-14 00:38] LABS: INR 1.1; PARTIAL THROMBOPLASTIN TIME 27.3 sec (23.4-31.0); PROTHROMBIN TIME 12.2 sec (9.6-11.0)
[2020-11-14] MEDS: ZOLPIDEM TARTRATE 5MG TABLET PO PRN ×2 (02:53→23:48)
[2020-11-14 04:00] VITALS: BP 111/81
[2020-11-14] MEDS: FAMOTIDINE 20MG TABLET PO SCH (06:29)
[2020-11-14] MEDS: LEVOTHYROXINE SODIUM 25MCG TABLET PO SCH (06:29)
[2020-11-14 07:11] LABS: BASOPHILS % 1.8 % (0.0-2.0); HEMATOCRIT. 33.9 % (42.0-52.0); HEMOGLOBIN. 10.6 g/dL (14.0-18.0); LYMPHOCYTES % 19.1 % (20.0-50.0); MEAN CORPUSCULAR HEMOGLOBIN 25.6 pg (28.0-32.0); MEAN CORPUSCULAR VOLUME 81.9 fL (80.0-94.0); MEAN PLATELET VOLUME 8.5 fl (7.4-10.4); MONOCYTES % 11.8 % (2.0-8.0); NEUTROPHILS % 65.3 % (40.0-76.0); PLATELET 288 x1000/uL (130-400); RED BLOOD CELL COUNT 4.14 mill/uL (4.7-6.1); RED CELL DISTRIBUTION WIDTH 19.6 % (11.6-14.6)
[2020-11-14 08:00] VITALS: BP 116/90
[2020-11-14] MEDS: FUROSEMIDE 40MG TABLET PO SCH (08:43)
[2020-11-14] MEDS: METOPROLOL TARTRATE 50MG TABLET PO SCH ×2 (08:43→20:56)
[2020-11-14] MEDS: FOLIC ACID/VITAMIN B COMP W-C TABLET PO SCH (08:43)
[2020-11-14 12:00] VITALS: BP 117/86
[2020-11-14] MEDS: HYDROCODONE/ACETAMINOPHEN 5/325MG TABLET PO PRN ×2 (15:42→23:48)
[2020-11-14 16:00] VITALS: BP 101/76
[2020-11-14] MEDS ORDERED: LEVO25TA7 PO (16:47)
[2020-11-14] MEDS ORDERED: METO-539 PO ×2 (16:47)
[2020-11-14 20:00] VITALS: BP 138/105
[2020-11-14] MEDS: DIPHENHYDRAMINE 50MG CAPSULE PO PRN (21:33)
[2020-11-15] VITALS: BP 132/92
[2020-11-15 04:00] VITALS: BP 124/89
[2020-11-15] MEDS: FAMOTIDINE 20MG TABLET PO SCH (06:28)
[2020-11-15] MEDS: LEVOTHYROXINE SODIUM 25MCG TABLET PO SCH (06:28)
[2020-11-15 06:56] LABS: PHOSPHORUS 3.3 mg/dL (2.5-4.9)
[2020-11-15 07:06] LABS: BASOPHILS % 1.7 % (0.0-2.0); EOSINOPHILS % 2.1 % (0.0-5.0); HEMATOCRIT. 35.8 % (42.0-52.0); HEMOGLOBIN. 11.5 g/dL (14.0-18.0); LYMPHOCYTES % 27.7 % (20.0-50.0); MEAN CORPUSCULAR HEMOGLOBIN 26.6 pg (28.0-32.0); MEAN PLATELET VOLUME 8.7 fl (7.4-10.4); MONOCYTES % 10.8 % (2.0-8.0); NEUTROPHILS % 57.7 % (40.0-76.0); PLATELET 292 x1000/uL (130-400); RED BLOOD CELL COUNT 4.32 mill/uL (4.7-6.1); RED CELL DISTRIBUTION WIDTH 19.5 % (11.6-14.6)
[2020-11-15 08:00] VITALS: BP 113/88
[2020-11-15] MEDS: FOLIC ACID/VITAMIN B COMP W-C TABLET PO SCH (08:33)
[2020-11-15] MEDS: FUROSEMIDE 40MG TABLET PO SCH (08:33)
[2020-11-15] MEDS: METOPROLOL TARTRATE 50MG TABLET PO SCH ×2 (08:33→21:45)
[2020-11-15 12:00] VITALS: BP 122/63
[2020-11-15 16:00] VITALS: BP 125/90
[2020-11-15 20:00] VITALS: BP 177/123
[2020-11-15] MEDS: ZOLPIDEM TARTRATE 5MG TABLET PO PRN (22:57)
[2020-11-16] VITALS: BP 119/86
[2020-11-16 04:00] VITALS: BP 117/80
[2020-11-16] MEDS: FAMOTIDINE 20MG TABLET PO SCH (07:05)
[2020-11-16] MEDS: LEVOTHYROXINE SODIUM 25MCG TABLET PO SCH (07:05)
[2020-11-16 07:14] LABS: BASOPHILS % 2.1 % (0.0-2.0); EOSINOPHILS % 2.8 % (0.0-5.0); HEMATOCRIT. 33.8 % (42.0-52.0); HEMOGLOBIN. 10.7 g/dL (14.0-18.0); LYMPHOCYTES % 26.5 % (20.0-50.0); MEAN CORPUSCULAR HEMOGLOBIN 26.1 pg (28.0-32.0); MEAN CORPUSCULAR VOLUME 82.7 fL (80.0-94.0); MEAN PLATELET VOLUME 8.7 fl (7.4-10.4); NEUTROPHILS % 55.6 % (40.0-76.0); PLATELET 308 x1000/uL (130-400); RED BLOOD CELL COUNT 4.09 mill/uL (4.7-6.1); RED CELL DISTRIBUTION WIDTH 19.4 % (11.6-14.6)
[2020-11-16 08:00] VITALS: BP 121/92
[2020-11-16] MEDS: FUROSEMIDE 40MG TABLET PO SCH (08:46)
[2020-11-16] MEDS: METOPROLOL TARTRATE 50MG TABLET PO SCH ×2 (08:46→21:35)
[2020-11-16] MEDS: FOLIC ACID/VITAMIN B COMP W-C TABLET PO SCH (08:46)
[2020-11-16 12:00] VITALS: BP 116/72
[2020-11-16] MEDS ORDERED: FURO-151 MT (18:02)
[2020-11-16] MEDS ORDERED: LOSA25TA26 MT (18:02)
[2020-11-16] MEDS ORDERED: CARV12.545 MT (18:02)
[2020-11-16 20:00] VITALS: BP 117/81
[2020-11-17 04:00] VITALS: BP 121/78
[2020-11-17] MEDS: LEVOTHYROXINE SODIUM 25MCG TABLET PO SCH (05:53)
[2020-11-17] MEDS: FAMOTIDINE 20MG TABLET PO SCH (05:53)
[2020-11-17 08:00] VITALS: BP 130/93
[2020-11-17 08:39] LABS: BASOPHILS % 2.6 % (0.0-2.0); EOSINOPHILS % 3.7 % (0.0-5.0); HEMATOCRIT. 35.2 % (42.0-52.0); LYMPHOCYTES % 24.9 % (20.0-50.0); MEAN CORPUSCULAR VOLUME 83.3 fL (80.0-94.0); MEAN PLATELET VOLUME 8.3 fl (7.4-10.4); MONOCYTES % 12.2 % (2.0-8.0); NEUTROPHILS % 56.6 % (40.0-76.0); PLATELET 356 x1000/uL (130-400); RED BLOOD CELL COUNT 4.22 mill/uL (4.7-6.1); RED CELL DISTRIBUTION WIDTH 19.1 % (11.6-14.6)
[2020-11-17] MEDS: METOPROLOL TARTRATE 50MG TABLET PO SCH ×2 (09:51→21:31)
[2020-11-17] MEDS: FUROSEMIDE 40MG TABLET PO SCH (09:51)
[2020-11-17] MEDS: FOLIC ACID/VITAMIN B COMP W-C TABLET PO SCH (09:51)
[2020-11-17] MEDS: ONDANSETRON HCL 4MG/2ML INJ IV PRN (10:04)
[2020-11-17 12:00] VITALS: BP 117/82
[2020-11-17 16:30] VITALS: BP 130/76
[2020-11-17 20:00] VITALS: BP 139/93
[2020-11-18] VITALS: BP 121/86
[2020-11-18 04:00] VITALS: BP 122/93
[2020-11-18] MEDS: LEVOTHYROXINE SODIUM 25MCG TABLET PO SCH (05:49)
[2020-11-18] MEDS: FAMOTIDINE 20MG TABLET PO SCH (05:49)
[2020-11-18] MEDS: ENOXAPARIN 30MG/0.3ML SYR SUBCUT SCH (08:48)
[2020-11-18] MEDS: METOPROLOL TARTRATE 50MG TABLET PO SCH ×2 (08:54→23:45)
[2020-11-18] MEDS: FOLIC ACID/VITAMIN B COMP W-C TABLET PO SCH (08:54)
[2020-11-18] MEDS: FUROSEMIDE 40MG TABLET PO SCH (08:54)
[2020-11-18 12:34] LABS: BASOPHILS % 1.5 % (0.0-2.0); EOSINOPHILS % 3.4 % (0.0-5.0); HEMATOCRIT. 33.4 % (42.0-52.0); HEMOGLOBIN. 10.5 g/dL (14.0-18.0); LYMPHOCYTES % 21.9 % (20.0-50.0); MEAN CORPUSCULAR HEMOGLOBIN 26.1 pg (28.0-32.0); MEAN CORPUSCULAR VOLUME 83.2 fL (80.0-94.0); MONOCYTES % 12.2 % (2.0-8.0); PLATELET 305 x1000/uL (130-400); RED BLOOD CELL COUNT 4.01 mill/uL (4.7-6.1)
[2020-11-18 16:00] VITALS: BP 150/80
[2020-11-18 20:00] VITALS: BP 119/71
[2020-11-19] VITALS: BP 149/74
[2020-11-19 04:00] VITALS: BP 139/73
[2020-11-19] MEDS: FAMOTIDINE 20MG TABLET PO SCH (06:26)
[2020-11-19] MEDS: LEVOTHYROXINE SODIUM 50MCG TABLET PO SCH (06:26)
[2020-11-19 07:52] LABS: EOSINOPHILS % 3.3 % (0.0-5.0); HEMATOCRIT. 33.5 % (42.0-52.0); HEMOGLOBIN. 10.5 g/dL (14.0-18.0); LYMPHOCYTES % 22.5 % (20.0-50.0); MEAN CORPUSCULAR HEMOGLOBIN 25.8 pg (28.0-32.0); MEAN CORPUSCULAR VOLUME 82.2 fL (80.0-94.0); MEAN PLATELET VOLUME 8.2 fl (7.4-10.4); MONOCYTES % 10.5 % (2.0-8.0); NEUTROPHILS % 61.7 % (40.0-76.0); PLATELET 319 x1000/uL (130-400); RED BLOOD CELL COUNT 4.08 mill/uL (4.7-6.1); RED CELL DISTRIBUTION WIDTH 18.6 % (11.6-14.6)
[2020-11-19 08:00] VITALS: BP 123/87
[2020-11-19] MEDS: FUROSEMIDE 40MG TABLET PO SCH (09:20)
[2020-11-19] MEDS: ENOXAPARIN 30MG/0.3ML SYR SUBCUT SCH (09:20)
[2020-11-19] MEDS: FOLIC ACID/VITAMIN B COMP W-C TABLET PO SCH (09:20)
[2020-11-19] MEDS: METOPROLOL TARTRATE 50MG TABLET PO SCH ×2 (09:20→21:12)
[2020-11-19 12:00] VITALS: BP 134/81
[2020-11-19 16:00] VITALS: BP 139/77
[2020-11-19 20:00] VITALS: BP 164/95
[2020-11-19] MEDS ORDERED: LORAZEPAM 1MG TABLET PO PRN (20:00)
[2020-11-19] MEDS: DIPHENHYDRAMINE 50MG CAPSULE PO PRN (23:27)
[2020-11-20] VITALS: BP 137/85
[2020-11-20 04:00] VITALS: BP_SYST 128
[2020-11-20] MEDS: FAMOTIDINE 20MG TABLET PO SCH (07:47)
[2020-11-20] MEDS: LEVOTHYROXINE SODIUM 50MCG TABLET PO SCH (07:47)
[2020-11-20 08:00] VITALS: BP 135/85
[2020-11-20] MEDS: ENOXAPARIN 40MG/0.4ML SYR SUBCUT SCH (09:24)
[2020-11-20] MEDS: FOLIC ACID/VITAMIN B COMP W-C TABLET PO SCH (09:24)
[2020-11-20] MEDS: FUROSEMIDE 40MG TABLET PO SCH (09:24)
[2020-11-20] MEDS: METOPROLOL TARTRATE 50MG TABLET PO SCH ×2 (09:25→21:18)
[2020-11-20 12:00] VITALS: BP 133/79
[2020-11-20 16:00] VITALS: BP 137/101
[2020-11-20 20:00] VITALS: BP 135/89
[2020-11-21 01:34] VITALS: BP 128/74
[2020-11-21 04:00] VITALS: BP 128/81
[2020-11-21] MEDS: FAMOTIDINE 20MG TABLET PO SCH (05:54)
[2020-11-21] MEDS: LEVOTHYROXINE SODIUM 50MCG TABLET PO SCH (05:54)
[2020-11-21 08:00] VITALS: BP 134/84
[2020-11-21] MEDS: FOLIC ACID/VITAMIN B COMP W-C TABLET PO SCH (09:50)
[2020-11-21] MEDS: FUROSEMIDE 40MG TABLET PO SCH (09:50)
[2020-11-21] MEDS: ENOXAPARIN 40MG/0.4ML SYR SUBCUT SCH (09:50)
[2020-11-21] MEDS: METOPROLOL TARTRATE 50MG TABLET PO SCH (09:50)
[2020-11-21 10:04] VITALS: BP 134/84
== END 2020-11-21 10:39 | DRG 816 ==
LOC: ER 16:52 → 5WST 20:25 → ENRESERV 11-10 07:33 → 5WST 11-16 23:47
PROVIDERS: ADMIT Internal Medicine; ATTEND Internal Medicine
PROC: 0W9G3ZZ Drainage of Peritoneal Cavity, Percutaneous Approach (ICD-10-PCS; principal; 2020-11-14)
DX: T40.5X1A Poisoning by cocaine, accidental (unintentional), initial encounter (principal); N17.0 Acute kidney failure with tubular necrosis; I50.23 Acute on chronic systolic (congestive) heart failure; I24.8 Other forms of acute ischemic heart disease; N18.4 Chronic kidney disease, stage 4 (severe); E87.1 Hypo-osmolality and hyponatremia; G82.20 Paraplegia, unspecified; R18.8 Other ascites; E44.1 Mild protein-calorie malnutrition; I27.20 Pulmonary hypertension, unspecified; I13.0 Hypertensive heart and chronic kidney disease with heart failure and stage 1 through stage 4 chronic kidney disease, or unspecified chronic kidney disease; E87.5 Hyperkalemia; I42.0 Dilated cardiomyopathy; I25.10 Atherosclerotic heart disease of native coronary artery without angina pectoris; F14.10 Cocaine abuse, uncomplicated; E16.2 Hypoglycemia, unspecified; F19.10 Other psychoactive substance abuse, uncomplicated; D64.9 Anemia, unspecified; E03.9 Hypothyroidism, unspecified; I87.2 Venous insufficiency (chronic) (peripheral); I87.8 Other specified disorders of veins; N28.1 Cyst of kidney, acquired; I34.0 Nonrheumatic mitral (valve) insufficiency; J44.9 Chronic obstructive pulmonary disease, unspecified; K76.9 Liver disease, unspecified; Z20.822 Contact with and (suspected) exposure to COVID-19; I73.9 Peripheral vascular disease, unspecified; R73.9 Hyperglycemia, unspecified; Z59.0 Homelessness; Z99.3 Dependence on wheelchair; Z76.5 Malingerer [conscious simulation]; Z86.16 Personal history of COVID-19; Z86.73 Personal history of transient ischemic attack (TIA), and cerebral infarction without residual deficits; Z79.899 Other long term (current) drug therapy; Z88.0 Allergy status to penicillin; Z79.82 Long term (current) use of aspirin; Z71.51 Drug abuse counseling and surveillance of drug abuser
CPT/HCPCS: 36415; 49083; 71045; 76705; 76770; 80048; 80053; 80061; 80076; 80305; 81003; 82088; 82533; 82962; 83735; 83880; 84100; 84439; 84443; 84484; 85025; 85027; 86376; 87426; 88108; 93005; 93306; 93923; 93970; 94644; 97162; 99291; J0610; J1650; J1815; J1940; J2405; Q0163

== ENCOUNTER 2021-01-24 03:07 | Inpatient (IN) | payer MEDICAID ==
[~2021-01-24] VITALS: Ht 182.9 cm; Wt 95.7 kg
[~2021-01-24 03:07] MED LIST changes: +CARV12.545 MT; +LEVO25TA7 PO; +LOSA25TA26 MT
[2021-01-24] MEDS ORDERED: FUROSEMIDE 40MG/4ML VIAL IV ONE (03:30)
[2021-01-24] MEDS ORDERED: NITROGLYCERIN OINT 1GM/INCH UDPKT TD ONE (03:30)
[2021-01-24 05:27] LABS: *AMPHETAMINES SCREEN URINE NEGATIVE (NEGATIVE); *BARBITURATES SCREEN URINE NEGATIVE (NEGATIVE); *BENZODIAZEPINES SCREEN URINE NEGATIVE (NEGATIVE); *COCAINE SCREEN URINE PRESUMTIVE POSITIVE (NEGATIVE); METHADONE URINE SCREEN NEGATIVE (NEGATIVE); OPIATES URINE SCREEN NEGATIVE (NEGATIVE); PHENCYCLIDINE URINE SCREEN NEGATIVE (NEGATIVE)
[2021-01-24 05:28] LABS: CANNABINOID URINE SCREEN NEGATIVE (NEGATIVE)
[2021-01-24 05:39] LABS: HEMATOCRIT. 36.8 % (42.0-52.0); HEMOGLOBIN. 11.6 g/dL (14.0-18.0); MEAN CORPUSCULAR HEMOGLOBIN 26.2 pg (28.0-32.0); MEAN PLATELET VOLUME 7.9 fl (7.4-10.4); PLATELET 251 x1000/uL (130-400); RED BLOOD CELL COUNT 4.43 mill/uL (4.7-6.1)
[2021-01-24 05:47] LABS: INR 1.1; PARTIAL THROMBOPLASTIN TIME 21.7 sec (23.4-31.0); PROTHROMBIN TIME 11.7 sec (9.6-11.0)
[2021-01-24] MEDS ORDERED: LORAZEPAM 2MG/ML CPJ IV ONE (06:15)
[2021-01-24 06:35] LABS: CHLORIDE 115 mEq/L (98-107)
[2021-01-24 06:38] LABS: ETHANOL BLOOD < 10 mg/dL
[2021-01-24 06:41] LABS: ATYPICAL LYMPHOCYTES 1; PLATELET ESTIMATE NORMAL
[2021-01-24] MEDS ORDERED: ASPIRIN 81MG TABLET PO ONE (09:45)
[2021-01-24] MEDS ORDERED: IPRATROPIUM/ALBUTEROL 0.5-3(2.5)MG/3ML NEB HHN PRN (14:30)
[2021-01-24] MEDS: ENOXAPARIN 40MG/0.4ML SYR SUBCUT SCH (16:24)
[2021-01-24] MEDS: AMLODIPINE 10MG TABLET PO SCH (16:25)
[2021-01-24 17:55] VITALS: BP 161/110
[2021-01-24 18:06] VITALS: BP 161/110
[2021-01-24] MEDS: FUROSEMIDE 40MG/4ML VIAL IVP SCH (18:47)
[2021-01-24 20:09] VITALS: BP 148/105
[2021-01-24] MEDS: HYDRALAZINE HCL 50MG TABLET PO SCH (20:10)
[2021-01-25] VITALS (11 sets, daily range): BP systolic 129–156; BP diastolic 76–113
[2021-01-25] MEDS: LEVOTHYROXINE SODIUM 50MCG TABLET PO SCH (06:30)
[2021-01-25 06:59] LABS: BASOPHILS % 1.1 % (0.0-2.0); EOSINOPHILS % 3.7 % (0.0-5.0); HEMATOCRIT. 34.7 % (42.0-52.0); HEMOGLOBIN. 11.2 g/dL (14.0-18.0); LYMPHOCYTES % 12.9 % (20.0-50.0); MEAN CORPUSCULAR VOLUME 83.9 fL (80.0-94.0); MEAN PLATELET VOLUME 7.8 fl (7.4-10.4); MONOCYTES % 10.5 % (2.0-8.0); NEUTROPHILS % 71.8 % (40.0-76.0); PLATELET 279 x1000/uL (130-400); RED BLOOD CELL COUNT 4.13 mill/uL (4.7-6.1); RED CELL DISTRIBUTION WIDTH 21.2 % (11.6-14.6)
[2021-01-25] MEDS: HYDRALAZINE HCL 50MG TABLET PO SCH ×2 (08:14→20:07)
[2021-01-25] MEDS: FUROSEMIDE 40MG/4ML VIAL IVP SCH ×2 (08:14→17:42)
[2021-01-25] MEDS: AMLODIPINE 10MG TABLET PO SCH (08:14)
[2021-01-25] MEDS: ASPIRIN 81MG TABLET PO SCH (08:14)
[2021-01-25] MEDS: ENOXAPARIN 40MG/0.4ML SYR SUBCUT SCH (14:14)
[2021-01-26 01:25] VITALS: BP 131/91
[2021-01-26 04:45] VITALS: BP 132/87
[2021-01-26] MEDS: LEVOTHYROXINE SODIUM 50MCG TABLET PO SCH (06:16)
[2021-01-26 08:00] VITALS: BP 122/95
[2021-01-26] MEDS: FUROSEMIDE 40MG/4ML VIAL IVP SCH ×2 (09:24→17:09)
[2021-01-26] MEDS: HYDRALAZINE HCL 50MG TABLET PO SCH ×2 (09:24→20:50)
[2021-01-26] MEDS: AMLODIPINE 10MG TABLET PO SCH (09:24)
[2021-01-26] MEDS: ASPIRIN 81MG TABLET PO SCH (09:24)
[2021-01-26 12:00] VITALS: BP 133/84
[2021-01-26] MEDS: ENOXAPARIN 40MG/0.4ML SYR SUBCUT SCH (17:09)
[2021-01-26 20:00] VITALS: BP 137/82
[2021-01-27] VITALS (9 sets, daily range): BP systolic 117–151; BP diastolic 63–98
[2021-01-27] MEDS: LEVOTHYROXINE SODIUM 50MCG TABLET PO SCH (06:52)
[2021-01-27] MEDS: HYDRALAZINE HCL 50MG TABLET PO SCH ×2 (08:00→21:55)
[2021-01-27] MEDS: AMLODIPINE 10MG TABLET PO SCH (08:00)
[2021-01-27] MEDS: FUROSEMIDE 40MG/4ML VIAL IVP SCH ×2 (08:00→17:22)
[2021-01-27] MEDS: ASPIRIN 81MG TABLET PO SCH (08:00)
[2021-01-27] MEDS: ENOXAPARIN 40MG/0.4ML SYR SUBCUT SCH (14:06)
[2021-01-27] MEDS: FAMOTIDINE 20MG TABLET PO SCH (17:22)
[2021-01-28] VITALS: BP 133/96
[2021-01-28] MEDS: HYDROCODONE/ACETAMINOPHEN 5/325MG TABLET PO PRN ×3 (01:01→09:52)
[2021-01-28] MEDS ORDERED: NALOXONE HCL 0.4MG/ML VIAL IV PRN (01:15)
[2021-01-28] MEDS: LEVOTHYROXINE SODIUM 50MCG TABLET PO SCH (06:01)
[2021-01-28] MEDS: FUROSEMIDE 40MG/4ML VIAL IVP SCH ×2 (06:02→17:29)
[2021-01-28 08:00] VITALS: BP 111/82
[2021-01-28] MEDS: ASPIRIN 81MG TABLET PO SCH (09:50)
[2021-01-28] MEDS: FAMOTIDINE 20MG TABLET PO SCH (09:50)
[2021-01-28] MEDS: HYDRALAZINE HCL 50MG TABLET PO SCH ×2 (09:51→23:05)
[2021-01-28] MEDS: AMLODIPINE 10MG TABLET PO SCH (09:52)
[2021-01-28 12:00] VITALS: BP 113/76
[2021-01-28] MEDS: ENOXAPARIN 40MG/0.4ML SYR SUBCUT SCH (15:00)
[2021-01-28 16:00] VITALS: BP 117/75
[2021-01-28 20:00] VITALS: BP 126/83
[2021-01-29] VITALS: BP 130/62
[2021-01-29] MEDS: HYDROCODONE/ACETAMINOPHEN 5/325MG TABLET PO PRN ×3 (02:02→21:59)
[2021-01-29 04:00] VITALS: BP 146/82
[2021-01-29] MEDS: FUROSEMIDE 40MG/4ML VIAL IVP SCH ×2 (07:14→18:48)
[2021-01-29] MEDS: LEVOTHYROXINE SODIUM 50MCG TABLET PO SCH (07:20)
[2021-01-29 08:00] VITALS: BP 118/87
[2021-01-29] MEDS: ASPIRIN 81MG TABLET PO SCH (09:00)
[2021-01-29] MEDS ORDERED: LIDOCAINE HCL 1% 20ML VIAL (Pyxis) INJ ONE (09:39)
[2021-01-29] MEDS ORDERED: SODIUM BICARBONATE 4% (2.4MEQ) 5ML VIAL IV ONE (09:39)
[2021-01-29 12:00] VITALS: BP 138/100
[2021-01-29] MEDS: HYDRALAZINE HCL 50MG TABLET PO SCH ×2 (12:20→21:55)
[2021-01-29] MEDS: AMLODIPINE 10MG TABLET PO SCH (12:21)
[2021-01-29] MEDS: FAMOTIDINE 20MG TABLET PO SCH (12:21)
[2021-01-29] MEDS: ENOXAPARIN 40MG/0.4ML SYR SUBCUT SCH (15:00)
[2021-01-29 20:00] VITALS: BP 112/74
[2021-01-30] VITALS: BP 124/83
[2021-01-30 04:00] VITALS: BP 114/75
[2021-01-30] MEDS: FUROSEMIDE 40MG/4ML VIAL IVP SCH ×2 (06:24→17:18)
[2021-01-30] MEDS: LEVOTHYROXINE SODIUM 50MCG TABLET PO SCH (06:26)
[2021-01-30 08:00] VITALS: BP 134/95
[2021-01-30] MEDS: FAMOTIDINE 20MG TABLET PO SCH (09:36)
[2021-01-30] MEDS: HYDRALAZINE HCL 50MG TABLET PO SCH ×2 (09:37→23:12)
[2021-01-30] MEDS: ASPIRIN 81MG TABLET PO SCH (09:37)
[2021-01-30] MEDS: AMLODIPINE 10MG TABLET PO SCH (09:37)
[2021-01-30 12:00] VITALS: BP 131/88
[2021-01-30] MEDS: HYDROCODONE/ACETAMINOPHEN 5/325MG TABLET PO PRN ×2 (13:09→17:21)
[2021-01-30] MEDS: ENOXAPARIN 40MG/0.4ML SYR SUBCUT SCH (15:07)
[2021-01-30 16:00] VITALS: BP 122/80
[2021-01-31 04:00] VITALS: BP 122/58
[2021-01-31] MEDS: FUROSEMIDE 40MG/4ML VIAL IVP SCH ×2 (06:44→17:30)
[2021-01-31] MEDS: LEVOTHYROXINE SODIUM 50MCG TABLET PO SCH (06:44)
[2021-01-31 08:00] VITALS: BP 107/77
[2021-01-31] MEDS: HYDRALAZINE HCL 50MG TABLET PO SCH ×2 (09:00→21:05)
[2021-01-31] MEDS: AMLODIPINE 10MG TABLET PO SCH (09:00)
[2021-01-31] MEDS: FAMOTIDINE 20MG TABLET PO SCH (09:15)
[2021-01-31] MEDS: ASPIRIN 81MG TABLET PO SCH (09:16)
[2021-01-31 12:00] VITALS: BP 90/62
[2021-01-31 16:00] VITALS: BP 126/90
[2021-01-31] MEDS: ENOXAPARIN 40MG/0.4ML SYR SUBCUT SCH (17:31)
[2021-01-31 20:00] VITALS: BP 129/76
[2021-02-01] VITALS: BP 126/71
[2021-02-01] MEDS: HYDROCODONE/ACETAMINOPHEN 5/325MG TABLET PO PRN (02:47)
[2021-02-01 04:00] VITALS: BP 114/81
[2021-02-01] MEDS: LEVOTHYROXINE SODIUM 50MCG TABLET PO SCH (06:31)
[2021-02-01] MEDS: FUROSEMIDE 40MG/4ML VIAL IVP SCH ×2 (06:31→11:10)
[2021-02-01 08:00] VITALS: BP 107/72
[2021-02-01] MEDS: HYDRALAZINE HCL 50MG TABLET PO SCH ×2 (09:00→20:27)
[2021-02-01] MEDS: AMLODIPINE 10MG TABLET PO SCH (09:00)
[2021-02-01] MEDS: ASPIRIN 81MG TABLET PO SCH (11:10)
[2021-02-01] MEDS: FAMOTIDINE 20MG TABLET PO SCH (11:16)
[2021-02-01 12:00] VITALS: BP 85/44
[2021-02-01 16:00] VITALS: BP 106/68
[2021-02-01] MEDS: ENOXAPARIN 40MG/0.4ML SYR SUBCUT SCH (16:13)
[2021-02-01 20:00] VITALS: BP 134/89
[2021-02-02] VITALS: BP 117/79
[2021-02-02 04:00] VITALS: BP 120/80
[2021-02-02] MEDS: LEVOTHYROXINE SODIUM 50MCG TABLET PO SCH (06:32)
[2021-02-02] MEDS: FUROSEMIDE 40MG/4ML VIAL IVP SCH (06:32)
[2021-02-02 06:44] LABS: BASOPHILS % 2.5 % (0.0-2.0); EOSINOPHILS % 3.6 % (0.0-5.0); HEMATOCRIT. 33.9 % (42.0-52.0); MEAN CORPUSCULAR HEMOGLOBIN 26.5 pg (28.0-32.0); MEAN CORPUSCULAR VOLUME 81.7 fL (80.0-94.0); MEAN PLATELET VOLUME 8.3 fl (7.4-10.4); MONOCYTES % 13.2 % (2.0-8.0); NEUTROPHILS % 62.7 % (40.0-76.0); PLATELET 255 x1000/uL (130-400); RED BLOOD CELL COUNT 4.15 mill/uL (4.7-6.1); RED CELL DISTRIBUTION WIDTH 19.9 % (11.6-14.6)
[2021-02-02 08:18] VITALS: BP 118/76
[2021-02-02] MEDS: ASPIRIN 81MG TABLET PO SCH (08:31)
[2021-02-02] MEDS: FAMOTIDINE 20MG TABLET PO SCH (08:31)
[2021-02-02] MEDS: HYDRALAZINE HCL 50MG TABLET PO SCH (08:31)
[2021-02-02] MEDS: AMLODIPINE 10MG TABLET PO SCH (08:31)
[2021-02-02] MEDS ORDERED: AMLO10TA80 PO (11:10)
[2021-02-02] MEDS ORDERED: ASPI-1406 PO (11:10)
[2021-02-02] MEDS ORDERED: HYDR-4135 PO (11:10)
[2021-02-02] MEDS ORDERED: ALBU18HF2 IH (11:10)
[2021-02-02] MEDS ORDERED: FAMO20TA8 PO (11:10)
[2021-02-02] MEDS ORDERED: FURO-151 MT (11:10)
[2021-02-02] MEDS ORDERED: LEVO50TA8 PO (11:10)
[2021-02-02] MEDS ORDERED: LOSA25TA26 MT (11:10)
[2021-02-02 12:00] VITALS: BP 100/58
[2021-02-02 12:49] VITALS: BP 100/58
== END 2021-02-02 13:30 | disposition home or self-care (01) | DRG 144 ==
LOC: ER 03:07 → EDBEDREQTM 09:24 → EDBEDREQ 09:24 → ENRESERV 15:23 → 3WST 18:28 → 6EST 01-27 15:15
PROVIDERS: ADMIT Internal Medicine; ATTEND Internal Medicine
PROC: 05HP33Z Insertion of Infusion Device into Right External Jugular Vein, Percutaneous Approach (ICD-10-PCS; principal; 2021-01-24)
PROC: 0W9G3ZZ Drainage of Peritoneal Cavity, Percutaneous Approach (ICD-10-PCS; 2021-01-29)
DX: J68.0 Bronchitis and pneumonitis due to chemicals, gases, fumes and vapors (principal); E43 Unspecified severe protein-calorie malnutrition; I50.23 Acute on chronic systolic (congestive) heart failure; N17.9 Acute kidney failure, unspecified; E11.22 Type 2 diabetes mellitus with diabetic chronic kidney disease; R18.8 Other ascites; E87.8 Other disorders of electrolyte and fluid balance, not elsewhere classified; I27.20 Pulmonary hypertension, unspecified; M94.0 Chondrocostal junction syndrome [Tietze]; I13.0 Hypertensive heart and chronic kidney disease with heart failure and stage 1 through stage 4 chronic kidney disease, or unspecified chronic kidney disease; I42.9 Cardiomyopathy, unspecified; D64.9 Anemia, unspecified; E03.9 Hypothyroidism, unspecified; F17.210 Nicotine dependence, cigarettes, uncomplicated; N18.9 Chronic kidney disease, unspecified; I87.8 Other specified disorders of veins; F14.10 Cocaine abuse, uncomplicated; Z20.822 Contact with and (suspected) exposure to COVID-19; Z91.19 Patient's noncompliance with other medical treatment and regimen; Z88.0 Allergy status to penicillin; Z79.899 Other long term (current) drug therapy; Z79.84 Long term (current) use of oral hypoglycemic drugs; Z79.82 Long term (current) use of aspirin; Z68.28 Body mass index [BMI] 28.0-28.9, adult; Z71.51 Drug abuse counseling and surveillance of drug abuser
CPT/HCPCS: 36415; 49083; 71045; 80048; 80053; 80305; 80320; 82962; 83880; 84484; 85025; 87426; 93005; 97162; 99285; C1893; J1650; J1940; J2060; J3490; G0480